=== PATIENT | female | born 1980 | race African-American/Black ===

== ENCOUNTER 2018-04-25 23:41 | Emergency (ER) | payer OTHER, SELFPAY ==
[2018-04-26 00:17] LABS: Absolute Lymphocytes (CBC) 3.7 K/uL (0.7-4.9); Absolute Monocytes 1.2 K/uL (0.1-1.3); Absolute Neutrophil 8.3 K/uL (1.8-8.0); Basophils % 0.9 % (0-1.3); Eosinophils % 2.5 % (0-4.4); Hematocrit 33.1 % (36.0-45.0); Lymphocytes % 27.2 % (15.3-44.8); MCH 22.4 pg (27.0-35.0); MCV 74.1 fL (80-100); MPV 8.5 fL (7.6-11.3); Monocytes % 8.8 % (3.3-12.3); RBC Red Blood Cell Count 4.46 M/uL (3.86-4.86)
[2018-04-26 00:34] LABS: ALT/SGPT 23 U/L (12-78); AST/SGOT 22 U/L (15-37); Albumin 3.4 g/dL (3.4-5.0); Alkaline Phosphatase 86 U/L (45-117); BUN Blood Urea Nitrogen 10 mg/dL (7-18); Bicarbonate 25 mmol/L (21-32); Bilirubin Direct < 0.1 mg/dL (0-0.2); Bilirubin Total 0.3 mg/dL (0.2-1.0); CKMB Creatine Kinase MB 1.4 ng/mL (0.3-3.6); Creatine Phosphokinase 165 U/L (26-192); Glucose Level 116 mg/dL (74-106); NT PRO-BNP 250 pg/mL (<125); Potassium 3.8 mmol/L (3.5-5.1); Protein, Total 7.5 g/dL (6.4-8.2); Sodium Level 141 mmol/L (136-145)
[2018-04-26] MEDS ORDERED: cloNIDine HCl 0.1 MG TAB ONE (00:38)
[2018-04-26 00:47] LABS: Urine Blood NEGATIVE (NEG); Urine Glucose NEGATIVE (NEG); Urine Protein NEGATIVE (NEG)
--- NOTE | 2018-04-26 01:53 | EDPHYS ---
Physician Documentation [facility] Name: Vickey Salamanca Age: 37 yrs Sex: Female : 1980 Arrival Date: 04/25/2018 Time: 23:42 Bed 5 Private MD: ED Physician Jez Marie HPI: 04/26 01:38 This 37 yrs old Black Female presents to ER via Ambulatory with complaints of High tw4 Blood Pressure, Shortness Of Breath. 01:38 The patient has elevated blood pressure and discovered this at home. Onset: The tw4 symptoms/episode began/occurred last week. Modifying factors: The symptoms are aggravated by pt noncompliant with medications. Associated signs and symptoms: The patient has no apparent associated signs or symptoms. The patient has not experienced similar symptoms in the past. 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 - Social history:: Smoking status: Patient uses tobacco products, denies chronic smoking, but will smoke occasionally. - Ebola Screening: : Patient negative for fever greater than or equal to 101.5 degrees Fahrenheit, and additional compatible Ebola Virus Disease symptoms Patient denies exposure to infectious person Patient denies travel to an Ebola-affected area in the 21 days before illness onset. ROS: 04/26 01:38 Constitutional: Negative for fever, chills, and weight loss, Cardiovascular: Negative tw4 for chest pain, palpitations, and edema, Abdomen/GI: Negative for abdominal pain, nausea, vomiting, diarrhea, and constipation. Respiratory: Positive for shortness of breath, Negative for cough, dyspnea on exertion, hemoptysis, orthopnea, pleurisy, sputum production, wheezing. Exam: 01:38 Constitutional: This is a well developed, well nourished patient who is awake, alert, tw4 and in no acute distress. Head/Face: Normocephalic, atraumatic. Chest/axilla: Normal chest wall appearance and motion. Nontender with no deformity. No lesions are appreciated. Cardiovascular: Regular rate and rhythm with a normal S1 and S2. No gallops, murmurs, or rubs. Normal PMI, no JVD. No pulse deficits. Respiratory: Lungs have equal breath sounds bilaterally, clear to auscultation and percussion. No rales, rhonchi or wheezes noted. No increased work of breathing, no retractions or nasal flaring. Abdomen/GI: Soft, non-tender, with normal bowel sounds. No distension or tympany. No guarding or rebound. No evidence of tenderness throughout. Back: No spinal tenderness. No costovertebral tenderness. Full range of motion. MS/ Extremity: Pulses equal, no cyanosis. Neurovascular intact. Full, normal range of motion. Neuro: Awake and alert, GCS 15, oriented to person, place, time, and situation. Cranial nerves II-XII grossly intact. Motor strength 5/5 in all extremities. Sensory grossly intact. Cerebellar exam normal. Normal gait. Vital Signs: 04/25 23:45 BP 198 / 125; Pulse 107; Resp 24; Temp 98.7(O); Pulse Ox 100% on R/A; Weight 97.52 kg fc (R); Height 5 ft. 7 in. (170.18 cm) (R); Pain 8/10; 04/26 00:21 BP 188 / 119; Pulse 90; Resp 20; Pulse Ox 100% on R/A; ak1 00:39 BP 170 / 111; Pulse 87; ak1 01:15 BP 168 / 110; ak1 01:33 BP 141 / 98; Pulse 88; Resp 17; Pulse Ox 98% on R/A; ea 02:03 BP 137 / 96; Pulse 85; Resp 16; Temp 98.7(O); Pulse Ox 98% on R/A; ak1 04/25 23:45 Body Mass Index 33.67 (97.52 kg, 170.18 cm) fc MDM: 04/25 23:51 Patient medically screened. 04/25 23:59 Order name: Basic Metabolic Panel; Complete Time: 01:41 4 04/26 01:41 Interpretation: Normal except: GLUC 116. 04/25 23:59 Order name: CBC with Diff; Complete Time: 01:41 04/26 01:41 Interpretation: Normal except: WBC 13.8; HGB 10.0; HCT 33.1; MCV 74.1; MCH 22.4; MCHC tw4 30.3; PLT 425; RDW 16.7; NEUT A 8.3. 04/25 23:59 Order name: Ckmb; Complete Time: 01:41 04/25 23:59 Order name: CPK; Complete Time: 01:41 04/25 23:59 Order name: LFT's; Complete Time: 01:41 04/26 01:41 Interpretation: Normal except: GLOB 4.1; A/G 0.8. 04/25 23:59 Order name: Magnesium; Complete Time: 01:41 04/25 23:59 Order name: NT PRO-BNP; Complete Time: 01:04/26 01:42 Interpretation: Abnormal: NT PRO-BNP 250. 04/25 23:59 Order name: PT-INR; Complete Time: 01:41 04/25 23:59 Order name: Ptt, Activated; Complete Time: 01:41 04/25 23:59 Order name: Troponin (emerg Dept Use Only); Complete Time: :41 04/25 23:59 Order name: XRAY Chest (1 view) 04/26 00:28 Order name: Urine Dipstick--Ancillary (enter results); Complete Time: :41 04/26 00:28 Order name: Urine --Ancillary (enter results); Complete Time: 01:41 04/25 23:59 Order name: EKG; Complete Time: 23:59 04/25 23:59 Order name: Cardiac monitoring; Complete Time: 00:02 04/25 23:59 Order name: EKG - Nurse/Tech; Complete Time: 00:00 04/25 23:59 Order name: IV Saline Lock; Complete Time: 00:00 04/25 23:59 Order name: Labs collected and sent; Complete Time: 00:01 04/25 23:59 Order name: O2 Per Protocol; Complete Time: 00:01 04/25 23:59 Order name: O2 Sat Monitoring; Complete Time: 00:01 04/25 23:59 Order name: Urine Dipstick-Ancillary (obtain specimen); Complete Time: 00:21 4 Administered Medications: 04/26 00:39 Drug: cloNIDine 0.2 mg Route: PO; ak1 01:23 Follow up: Response: No adverse reaction ak1 01:52 Drug: TORadol 30 mg Route: IVP; Site: right antecubital; ea 02:04 Follow up: Response: No adverse reaction ak1 Disposition: 04/26/18 01:52 Discharged to Home. Impression: Hypertensive urgency. - Condition is Stable. - Discharge Instructions: Hypertension, Xpgm-ag-Feat. - Prescriptions for Cozaar 50 mg Oral tablet - take 1 tablet by ORAL route once daily; 90 tablet. amlodipine 10 mg Oral tablet - take 1 tablet by ORAL route once daily; 90 tablet. - Medication Reconciliation Form, Thank You Letter, Antibiotic Education, Prescription Opioid Use form. - Follow up: Jez Marie MD; When: As needed; Reason: Recheck today's complaints, Re-evaluation by your physician. Follow up: Noah Galicia MD; When: As needed; Reason: Recheck today's complaints, Continuance of care, Re-evaluation by your physician. Follow up: Private Physician; When: As needed; Reason: Recheck today's complaints, Re-evaluation by your physician. - Problem is new. - Symptoms have improved. Signatures: Dispatcher [employer] EDMS Faiza Galeana RN Joi Mcneill RN RN ak1 Eva Jerez RN RN Jez Morrell MD MD tw4 Corrections: (The following items were deleted from the chart) 01:42 01:42 Normal except: NT PRO-BNP 250. tw4 4 02:06 01:52 04/26/2018 01:52 Discharged to Home. Impression: Hypertensive urgency. Condition tw4 is Stable. Forms are Medication Reconciliation Form, Thank You Letter, Antibiotic Education, Prescription Opioid Use. Follow up: Jez Marie; When: As needed; Reason: Recheck today's complaints, Re-evaluation by your physician. Follow up: Noah Galicia; When: As needed; Reason: Recheck today's complaints, Continuance of care, Re-evaluation by your physician. Problem is new. Symptoms have improved. 4 02:06 02:06 04/26/2018 01:52 Discharged to Home. Impression: Hypertensive urgency. Condition tw4 is Stable. Discharge Instructions: Hypertension, Chsp-ox-Bcrs. Prescriptions for Cozaar 50 mg Oral tablet - take 1 tablet by ORAL route once daily; 90 tablet, amlodipine 10 mg Oral tablet - take 1 tablet by ORAL route once daily; 90 tablet. and Forms are Medication Reconciliation Form, Thank You Letter, Antibiotic Education, Prescription Opioid Use. Follow up: Noah Galicia; When: As needed; Reason: Recheck today's complaints, Continuance of care, Re-evaluation by your physician. Problem is new. Symptoms have improved. tw4 02:15 02:06 04/26/2018 01:52 Discharged to Home. Impression: Hypertensive urgency. Condition ea is Stable. Discharge Instructions: Hypertension, Maya-wa-Bknf. Prescriptions for Cozaar 50 mg Oral tablet - take 1 tablet by ORAL route once daily; 90 tablet, amlodipine 10 mg Oral tablet - take 1 tablet by ORAL route once daily; 90 tablet. and Forms are Medication Reconciliation Form, Thank You Letter, Antibiotic Education, Prescription Opioid Use. Follow up: Noah Galicia; When: As needed; Reason: Recheck today's complaints, Continuance of care, Re-evaluation by your physician. Follow up: Private Physician; When: As needed; Reason: Recheck today's complaints, Re-evaluation by your physician. Problem is new. Symptoms have improved. tw4
--- NOTE | 2018-04-26 01:53 | ER ---
Nurse's Notes [facility] Name: Vickey Salamanca Age: 37 yrs Sex: Female : 1980 Arrival Date: 04/25/2018 Time: 23:42 Bed 5 Private MD: Diagnosis: Hypertensive urgency Presentation: 04/25 23:45 Presenting complaint: Patient states: that she has been having high bp and body aches x fc 2 days. Along with shortness of breath. Her right knee has been swollen x 2 months. Pt has not taken her bp medications of Amlodipine and Cozaar x 2 months due to no insurance. Has gained a significant amt of weight over past 2 months too. BP at home was 183/119. Transition of care: patient was not received from another setting of care. Onset of symptoms was May 16, 2018. Risk Assessment: Do you want to hurt yourself or someone else? Patient reports no desire to harm self or others. Initial Sepsis Screen: Does the patient meet any 2 criteria? HR > 90 bpm. Does the patient have a suspected source of infection? No. Patient's initial sepsis screen is negative. Care prior to arrival: None. 23:45 Method Of Arrival: Ambulatory fc 23:45 Acuity: KESHA 3 fc Triage Assessment: 23:55 General: Appears uncomfortable, Behavior is calm, cooperative, appropriate for age. fc Pain: Complains of pain in all over Pain currently is 8 out of 10 on a pain scale. Quality of pain is described as aching, Pain began 2-3 days ago. Is continuous, Aggravated by increased activity, repositioning, weight bearing. EENT: No deficits noted. Neuro: Level of Consciousness is awake, alert, obeys commands, Oriented to person, place, time, situation. Cardiovascular: Reports shortness of breath, Capillary refill < 3 seconds Patient's skin is warm and dry. Respiratory: Reports shortness of breath Airway is patent Trachea midline Respiratory effort is even, unlabored, Respiratory pattern is regular, symmetrical, Onset: The symptoms/episode began/occurred gradually, the patient has moderate shortness of breath. GI: No deficits noted. : No deficits noted. Derm: Skin is pink, warm \T\ dry. Musculoskeletal: Circulation, motion, and sensation intact. Capillary refill < 3 seconds, Range of motion: intact in all extremities. 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 - Social history:: Smoking status: Patient uses tobacco products, denies chronic smoking, but will smoke occasionally. - Ebola Screening: : Patient negative for fever greater than or equal to 101.5 degrees Fahrenheit, and additional compatible Ebola Virus Disease symptoms Patient denies exposure to infectious person Patient denies travel to an Ebola-affected area in the 21 days before illness onset. Screenin:55 Abuse screen: Denies threats or abuse. Nutritional screening: No deficits noted. fc Tuberculosis screening: No symptoms or risk factors identified. Fall Risk None identified. Assessment: 04/26 00:19 General: Appears in no apparent distress. Behavior is calm, cooperative. Pain:. ak1 00:20 Pain: Complains of pain in all over body aches, knee pain. Neuro: Level of ak1 Consciousness is awake, alert, obeys commands, Oriented to person, place, time, situation, Personalized Living Manager Nurse are equal bilaterally Moves all extremities. Gait is steady, Speech is normal, Facial symmetry appears normal. Cardiovascular: Rhythm is sinus rhythm. Respiratory: Reports shortness of breath Airway is patent Breath sounds are clear bilaterally. GI: No signs and/or symptoms were reported involving the gastrointestinal system. : No signs and/or symptoms were reported regarding the genitourinary system. EENT: No signs and/or symptoms were reported regarding the EENT system. Derm: No signs and/or symptoms reported regarding the dermatologic system. Musculoskeletal: Reports body aches. 01:46 Reassessment: Patient and/or family updated on plan of care and expected duration. Pain ea level reassessed. Patient is alert, oriented x 3, equal unlabored respirations, skin warm/dry/pink. 02:13 Reassessment: Patient and/or family updated on plan of care and expected duration. Pain ea level reassessed. Patient is alert, oriented x 3, equal unlabored respirations, skin warm/dry/pink. Discharge instruction given to patient, verbalized the understanding of instruction. Vital Signs: 04/25 23:45 BP 198 / 125; Pulse 107; Resp 24; Temp 98.7(O); Pulse Ox 100% on R/A; Weight 97.52 kg fc (R); Height 5 ft. 7 in. (170.18 cm) (R); Pain 8/10; 07 00:21 BP 188 / 119; Pulse 90; Resp 20; Pulse Ox 100% on R/A; ak1 00:39 BP 170 / 111; Pulse 87; ak1 01:15 BP 168 / 110; ak1 01:33 BP 141 / 98; Pulse 88; Resp 17; Pulse Ox 98% on R/A; ea 02:03 BP 137 / 96; Pulse 85; Resp 16; Temp 98.7(O); Pulse Ox 98% on R/A; ak1 04/25 23:45 Body Mass Index 33.67 (97.52 kg, 170.18 cm) fc ED Course: 04/25 23:42 Patient arrived in ED. ds1 23:45 Arm band placed on Patient placed in an exam room, on a stretcher. fc 23:51 Jez Marie MD is Attending Physician. tw4 23:53 Triage completed. fc 23:55 Patient has correct armband on for positive identification. Placed in gown. Bed in low fc position. Call light in reach. laboratory monitor on. Pulse ox on. NIBP on. 23:55 No provider procedures requiring assistance completed. fc 23:55 Inserted saline lock: 20 gauge in right antecubital area, using aseptic technique. ak1 Blood collected. 04/26 00:01 Eva Jerez, RN is Primary Nurse. ea 01:17 X-ray completed. Portable x-ray completed in exam room. Patient tolerated procedure bb2 well. 01:18 XRAY Chest (1 view) In Process Unspecified. EDMS 01:51 Jez Marie MD is Referral Physician. tw4 01:51 Noah Galicia MD is Referral Physician. tw4 02:06 Referral Physician role handed off by Jez Marie MD tw4 02:14 IV discontinued, intact, bleeding controlled, No redness/swelling at site. Pressure ea dressing applied. Administered Medications: 00:39 Drug: cloNIDine 0.2 mg Route: PO; ak1 01:23 Follow up: Response: No adverse reaction ak1 01:52 Drug: TORadol 30 mg Route: IVP; Site: right antecubital; ea 02:04 Follow up: Response: No adverse reaction ak1 Outcome: 01:52 Discharge ordered by . tw4 02:14 Condition: improved ea 02:14 Discharge instructions given to patient, Instructed on discharge instructions, follow up and referral plans. medication usage, Demonstrated understanding of instructions, follow-up care, medications, Prescriptions given X 2. 02:15 Patient left the ED. ea Signatures: Dispatcher [employer] EDMS Faiza Galeana RN RN Rhona Song ds1 Joi Stacy RN RN ak1 Eva Jerez RN RN Brigid Olea bb2 Jez Marie MD MD tw4 Corrections: (The following items were deleted from the chart) 04/25 23:55 23:45 Presenting complaint: Patient states: that she has been having high bp and body fc aches x 2 days. Along with shortness of breath. Her right knee has been swollen x 2 months. Pt has not taken her bp medications of Amlodipine and Cozaar x 2 months due to no insurance. Has gained a significant amt of weight over past 2 months too. fc
[2018-04-26] MEDS ORDERED: KETOROLAC 30 MG/ML INJ ONE (01:54)
--- NOTE | 2018-04-26 07:21 | RAD REPORT ---
EXAM DESCRIPTION: RAD - Chest Single View - 04/26/2018 1:18 am CLINICAL HISTORY: Shortness of breath, hypertension COMPARISON: December 2016 TECHNIQUE: AP portable chest image was obtained 0106 hours . FINDINGS: Lungs are clear. Heart and vasculature are normal. No measurable pleural effusion and no p neumothorax. No gross bony abnormality seen. No acute aortic findings suspected. IMPRESSION: No acute cardiopulmonary process. No significant change from comparison.
--- NOTE | 2018-04-26 09:23 | EKG ---
Test Date: 2018-04-25 Test Time: 23:54:51 Buying Agent: SID MEASUREMENT RESULTS: Intervals: Rate: 92 DC: 142 QRSD: 76 QT: 382 QTc: 472 [place]: P: 25 DC: 142 QRS: 14 T: 34 INTERPRETIVE STATEMENTS: Normal sinus rhythm Voltage criteria for left ventricular hypertrophy Nonspecific ST abnormality Abnormal ECG Compared to ECG 11/22/2017 22:19:28 ST (T wave) deviation now present Electronically Signed On 04-26-18 09:22:37 CDT by Sameer Romero
== END 2018-04-26 02:15 | disposition home or self-care (01) ==
LOC: ER 23:41
DX: I16.0 Hypertensive urgency (principal); Z72.0 Tobacco use
CPT/HCPCS: 36415; 71045; 80048; 80076; 81003; 81025; 82550; 82553; 83735; 83880; 84484; 85025; 85610; 85730; 93005; 96374; 99284

== ENCOUNTER 2018-06-13 13:57 | Emergency (ER) | payer SELFPAY ==
--- NOTE | 2018-06-13 15:20 | RAD REPORT ---
EXAM DESCRIPTION: VAS - Extremity Venous Uni Ltd - 06/13/2018 3:13 pm CLINICAL HISTORY: Right leg pain and swelling COMPARISON: None. TECHNIQUE: Real-time sonographic evaluation of the right lower extremity deep venous systems was per formed. FINDINGS: Normal compressibility, flow augmentation, phasic flow and spontaneous flow are identified in the right lower extremity common femoral, superficial femoral, popliteal and posterior tibial vei ns. No intraluminal filling defects seen. Ill-defined fluid is seen in the soft tissues around the knee. This appears to be an extra-articular collection. This could be old hematoma or reactive fluid from a soft tissue injury. This is more broa dly distributed than what is typically seen for ruptured popliteal fossa cyst. IMPRESSION: No DVT in the right lower extremity. Ill-defined fluid in the soft tissues around the knee. This is extra-articular. This could be old hem atoma or reactive fluid from soft tissue injury.
--- NOTE | 2018-06-13 15:41 | RAD REPORT ---
EXAM DESCRIPTION: RAD - Knee Right 3 View - 06/13/2018 2:52 pm CLINICAL HISTORY: Knee pain and swelling COMPARISON: None. FINDINGS: No fracture, dislocation or periosteal reaction.No joint effusion seen. Hypertrophy at the tibial tubercle could be normal variant or sequela of prior trauma. Active process at this site is d oubtful. No joint space narrowing. No foreign body or other soft tissue abnormality. IMPRESSION: No acute bone or joint finding. Old trauma or normal variant change at the tibial tuberc le. Clinical concerns for internal derangement or occult bony injury could be further assessed with MR im aging.
--- NOTE | 2018-06-13 15:57 | EDPHYS ---
Physician Documentation [facility] Name: Vickey Salamanca Age: 37 yrs Sex: Female : 1980 Arrival Date: 06/13/2018 Time: 14:00 Bed 23 Private MD: None, None ED Physician Will Garcia HPI: 06/13 14:17 This 37 yrs old Black Female presents to ER via Ambulatory with complaints of Knee rn Swelling. 14:17 The patient presents with pain, swelling. The complaints affect the right knee. Onset: rn The symptoms/episode began/occurred 3 month(s) ago. Severity of symptoms: At their worst the symptoms were mild, in the emergency department the symptoms are unchanged. The patient has experienced similar episodes in the past. Reports right knee pain and swelling for 3 months, constant, no trauma, no fever/warmth/redness, able to walk on it, has not had it checked. . 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 - Social history:: Smoking status: Patient/guardian denies using tobacco. - Ebola Screening: : No symptoms or risks identified at this time. - Family history:: not pertinent. - Hospitalizations: : No recent hospitalization is reported. ROS: 14:17 Constitutional: Negative for fever, chills, and weight loss, MS/Extremity: Negative for rn injury and deformity. Exam: 14:17 Constitutional: This is a well developed, well nourished patient who is awake, alert, rn and in no acute distress. Ambulated without assistance to room. Skin: Warm, dry with normal turgor. Normal color with no rashes, no lesions, and no evidence of cellulitis. MS/ Extremity: Pulses equal, no cyanosis. Neurovascular intact. Full, normal range of motion. + mild swelling around right knee, no warmth/erythema, mild tenderness posterior to right knee, no masses Neuro: Awake and alert, Motor strength 5/5 in all extremities. Sensory grossly intact. Normal gait. Vital Signs: 14:13 BP 151 / 95; Pulse 89; Resp 18; Temp 98.4; Pulse Ox 99% on R/A; Weight 95.25 kg; Height ph 5 ft. 7 in. (170.18 cm); Pain 8/10; 14:13 Body Mass Index 32.89 (95.25 kg, 170.18 cm) ph MDM: 14:07 Patient medically screened. rn 15:54 Differential diagnosis: contusion, tendonitis. Data reviewed: vital signs, nurses rn notes, radiologic studies, doppler, plain films, and as a result, I will discharge patient. Counseling: I had a detailed discussion with the patient and/or guardian regarding: the historical points, exam findings, and any diagnostic results supporting the discharge/admit diagnosis, radiology results, the need for outpatient follow up, to return to the emergency department if symptoms worsen or persist or if there are any questions or concerns that arise at home. 15:55 Response to treatment: There is no appreciated change of the patient's symptoms at this rn time. Special discussion: I discussed with the patient/guardian in detail that at this point there is no indication for admission to the hospital. It is understood, however, that if the symptoms persist or worsen the patient needs to return immediately for re-evaluation. Based on the history and exam findings, there is no indication for further emergent testing or inpatient evaluation. I discussed with the patient/guardian the need to see the orthopedic surgeon for further evaluation of the symptoms. ED course: Xray shows soft tissue swelling, extraarticular, doppler negative, will dc home with compression/rest/elevation, advise outpt MRI and return precautions. . 06/13 14:15 Order name: XRAY Knee RIGHT 3 view; Complete Time: 15:46 rn 06/13 14:15 Order name: Extremity Venous Uni Ltd US; Complete Time: 15:46 rn Administered Medications: No medications were administered Disposition: 06/13/18 15:57 Discharged to Home. Impression: Pain in right knee. - Condition is Stable. - Discharge Instructions: Joint Pain, Musculoskeletal Pain, Knee Pain. - Medication Reconciliation Form, Thank You Letter, Antibiotic Education, Prescription Opioid Use form. - Follow up: Private Physician; When: As needed; Reason: Recheck today's complaints, Re-evaluation by your physician. - Problem is new. - Symptoms have improved. Signatures: Dispatcher [employer] EDMS Will Garcia MD MD rn Smirch, Shelby, RN RN ss Kamilla Iyer RN RN ph Corrections: (The following items were deleted from the chart) 16:05 15:57 06/13/2018 15:57 Discharged to Home. Impression: Pain in right knee. Condition is ss Stable. Forms are Medication Reconciliation Form, Thank You Letter, Antibiotic Education, Prescription Opioid Use. Follow up: Private Physician; When: As needed; Reason: Recheck today's complaints, Re-evaluation by your physician. Problem is new. Symptoms have improved. rn
--- NOTE | 2018-06-13 15:57 | ER ---
Nurse's Notes [facility] Name: Vickey Salamanca Age: 37 yrs Sex: Female : 1980 Arrival Date: 06/13/2018 Time: 14:00 Bed 23 Private MD: None, None Diagnosis: Pain in right knee Presentation: 06/13 14:11 Presenting complaint: Patient states: " My knee has been swelling for about a month but ph it normally doesn't hurt. The past 2 or 3 days it has really been hurting and the pain moves up into my thigh." Swelling noted to R knee, pt denies injury, ambulatory into triage. Transition of care: patient was not received from another setting of care. Onset of symptoms was June 13, 2018. Risk Assessment: Do you want to hurt yourself or someone else? Patient reports no desire to harm self or others. Initial Sepsis Screen: Does the patient meet any 2 criteria? No. Patient's initial sepsis screen is negative. Does the patient have a suspected source of infection? No. Patient's initial sepsis screen is negative. Care prior to arrival: None. 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 - Social history:: Smoking status: Patient/guardian denies using tobacco. - Ebola Screening: : No symptoms or risks identified at this time. - Family history:: not pertinent. - Hospitalizations: : No recent hospitalization is reported. Vital Signs: 14:13 BP 151 / 95; Pulse 89; Resp 18; Temp 98.4; Pulse Ox 99% on R/A; Weight 95.25 kg; Height ph 5 ft. 7 in. (170.18 cm); Pain 8/10; 14:13 Body Mass Index 32.89 (95.25 kg, 170.18 cm) ph ED Course: 14:00 Patient arrived in ED. mr 14:01 None, None is Private Physician. mr 14:07 Will Garcia MD is Attending Physician. rn 14:13 Triage completed. ph 14:17 Arm band placed on. ph 14:48 X-ray completed. Portable x-ray completed in exam room. Patient tolerated procedure bb2 well. 14:50 XRAY Knee RIGHT 3 view In Process Unspecified. EDMS 15:02 Extremity Venous Uni Ltd US In Process Unspecified. EDMS 15:03 Ultrasound completed. Patient tolerated well. lc3 16:03 No provider procedures requiring assistance completed. Patient did not have IV access ss during this emergency room visit. 16:05 Madiha Flores, RN is Primary Nurse. ss Administered Medications: No medications were administered Outcome: 15:57 Discharge ordered by MD. rn 16:03 Discharged to home ambulatory, with family. ss 16:03 Condition: good 16:03 Discharge instructions given to patient, family, Instructed on discharge instructions, follow up and referral plans. medication usage, Demonstrated understanding of instructions, follow-up care, medications. 16:05 Patient left the ED. ss Signatures: Dispatcher [employer] EDPA Sanaz Renee mr Will Garcia MD MD rn Smirch, Shelby, RN RN ss Hall, Patricia, RN RN Radha Muller Brittany bb2
== END 2018-06-13 16:05 | disposition home or self-care (01) ==
LOC: ER 13:57
DX: M25.561 Pain in right knee (principal); I10 Essential (primary) hypertension
CPT/HCPCS: 93971; 99283

== ENCOUNTER 2019-03-21 17:36 | Emergency (ER) | payer SELFPAY ==
[2019-03-21 18:41] LABS: Absolute Lymphocytes (CBC) 3.9 K/uL (0.7-4.9); Absolute Monocytes 1.2 K/uL (0.1-1.3); Absolute Neutrophil 7.6 K/uL (1.8-8.0); Basophils % 0.9 % (0-1.3); Eosinophils % 1.7 % (0-4.4); Hematocrit 36.8 % (36.0-45.0); Lymphocytes % 29.7 % (15.3-44.8); MPV 8.4 fL (7.6-11.3); Monocytes % 9.4 % (3.3-12.3); Protime INR 1.04; RBC Red Blood Cell Count 4.62 M/uL (3.86-4.86)
[2019-03-21 19:00] LABS: ALT/SGPT 30 U/L (12-78); AST/SGOT 15 U/L (15-37); Albumin 3.7 g/dL (3.4-5.0); Alkaline Phosphatase 96 U/L (45-117); BUN Blood Urea Nitrogen 15 mg/dL (7-18); Bicarbonate 26 mmol/L (21-32); Bilirubin Direct < 0.1 mg/dL (0-0.2); Bilirubin Total 0.2 mg/dL (0.2-1.0); Glucose Level 93 mg/dL (74-106); Magnesium 2.1 mg/dL (1.8-2.4); NT PRO-BNP 18 pg/mL (<125); Potassium 3.7 mmol/L (3.5-5.1); Protein, Total 8.1 g/dL (6.4-8.2); Sodium Level 143 mmol/L (136-145); Troponin (Emerg Dept Use Only) < 0.02 ng/mL (0.0-0.045)
[2019-03-21 19:16] LABS: Urine Blood TRACE (NEG); Urine Glucose NEGATIVE (NEG); Urine Protein NEGATIVE (NEG); Urine Specific Gravity 1.015 (1.005-1.030)
--- NOTE | 2019-03-21 20:10 | ER ---
Nurse's Notes [facility] Name: Vickey Salamanca Age: 38 yrs Sex: Female : 1980 Arrival Date: 03/21/2019 Time: 17:40 Bed 24 Private MD: Diagnosis: Palpitations Presentation: 03/21 17:44 Presenting complaint: Patient states: "My heart has been racing for about 5 days". Pt aa5 also c/o chest pressure radiating to left arm. Transition of care: patient was not received from another setting of care. Onset of symptoms was February 2019. Risk Assessment: Do you want to hurt yourself or someone else? Patient reports no desire to harm self or others. Initial Sepsis Screen: Does the patient meet any 2 criteria? No. Patient's initial sepsis screen is negative. Does the patient have a suspected source of infection? No. Patient's initial sepsis screen is negative. Care prior to arrival: None. 17:44 Method Of Arrival: Ambulatory aa5 17:44 Acuity: KESHA 2 aa5 Triage Assessment: 17:55 General: Appears in no apparent distress. comfortable, Behavior is calm, cooperative. ls4 17:55 Pain: Complains of pain in left clavicle Pain currently is 4 out of 10 on a pain scale. ls4 Neuro: Level of Consciousness is awake, alert, obeys commands, Cardiovascular: Reports chest pain, lightheadedness, palpitations, Capillary refill < 3 seconds Patient's skin is warm and dry. Respiratory: Airway is patent Respiratory effort is even, unlabored, Respiratory pattern is regular. Derm: Skin is pink, warm \\T\\ dry. 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 - Social history:: Smoking status: Patient/guardian denies using tobacco. - Ebola Screening: : No symptoms or risks identified at this time. Screenin:53 Abuse screen: Denies threats or abuse. Denies injuries from another. Nutritional ls4 screening: No deficits noted. Tuberculosis screening: No symptoms or risk factors identified. Fall Risk No fall in past 12 months (0 pts). No secondary diagnosis (0 pts). IV access (20 points). Ambulatory Aid- None/Bed Rest/Nurse Assist (0 pts). Gait- Normal/Bed Rest/Wheelchair (0 pts) Mental Status- Oriented to own ability (0 pts). Assessment: 18:10 General: Appears uncomfortable, Behavior is cooperative. ls4 18:10 Neuro: Level of Consciousness is awake, alert, obeys commands, Oriented to person, ls4 place, time, situation. Cardiovascular: Reports chest pain, palpitations, shortness of breath. Respiratory: Reports air hunger since 5 days. Derm: Skin is pink, warm \\T\\ dry. 19:08 Reassessment: Patient appears in no apparent distress at this time. Patient and/or ls4 family updated on plan of care and expected duration. Pain level reassessed. Patient is alert, oriented x 3, equal unlabored respirations, skin warm/dry/pink. 20:40 Reassessment: Patient appears in no apparent distress at this time. Patient and/or ls4 family updated on plan of care and expected duration. Pain level reassessed. Patient is alert, oriented x 3, equal unlabored respirations, skin warm/dry/pink. 20:43 Reassessment: discharge pending fluids. ls4 Vital Signs: 17:47 BP 140 / 90; Pulse 108; Resp 18 S; Temp 99.2(TE); Pulse Ox 97% on R/A; Weight 97.07 kg aa5 (R); Height 5 ft. 7 in. (170.18 cm) (R); Pain 4/10; 18:45 BP 129 / 83; Pulse 93; Pulse Ox 99% on R/A; Pain 4/10; ls4 19:07 BP 127 / 89; Pulse 91; Resp 17; Pulse Ox 100% on R/A; ls4 20:10 BP 133 / 97; Pulse 93; Resp 14; Pulse Ox 99% on R/A; Pain 0/10; ls4 17:47 Body Mass Index 33.52 (97.07 kg, 170.18 cm) aa5 ED Course: 17:40 Patient arrived in ED. mr 17:44 Arm band placed on. aa5 17:45 Triage completed. aa5 17:50 Samia Wild, RN is Primary Nurse. ls4 17:51 EKG done, by nuclear plant technical advisor. reviewed by Royce Dee MD. sm3 17:52 Eduard Mae NP is PHCP. pm1 17:53 Royce Dee MD is Attending Physician. pm1 17:53 Patient has correct armband on for positive identification. Bed in low position. Call ls4 light in reach. Side rails up X 1. compliance monitor on. Pulse ox on. NIBP on. Warm blanket given. Verbal reassurance given. 18:05 Urine collected: clean catch specimen, clear, lara colored. jp3 18:10 Initial lab(s) drawn, by me, sent to lab. Inserted saline lock: 20 gauge in right ls4 antecubital area, using aseptic technique. Blood collected. 18:17 XRAY Chest (1 view) In Process Unspecified. EDMS 18:40 No provider procedures requiring assistance completed. ls4 21:55 IV discontinued, intact, bleeding controlled, No redness/swelling at site. Pressure ls4 dressing applied. Administered Medications: 20:11 Drug: NS 0.9% 1000 ml Route: IV; Rate: 1000 ml; Site: right antecubital; ls4 Outcome: 20:09 Discharge ordered by . pm1 21:38 Patient left the ED. ls4 21:38 Discharged to home ambulatory. ls4 21:38 Condition: stable 21:38 Discharge instructions given to patient, Instructed on discharge instructions, follow up and referral plans. medication usage, safety practices, Demonstrated understanding of instructions, follow-up care, medications. Signatures: Dispatcher [employer] EDWV Víctor Sonya CintronYady, RN RN aa5 Eduard Mae, ANGELIKA LONE LEAD LINEMAN pm1 Luli Perez 3 Guy Cox jp3 Samia Wild, DEEPA RN ls4 Corrections: (The following items were deleted from the chart) 17:49 17:47 Pulse 108bpm; Resp 18bpm; Spontaneous; Pulse Ox 97% RA; Temp 99.2F Temporal; aa5 97.07 kg Reported; Height 5 ft. 7 in. Reported; BMI: 33.5; Pain 4/10; aa5
--- NOTE | 2019-03-21 20:10 | EDPHYS ---
Physician Documentation [facility] Name: Vickey Salamanca Age: 38 yrs Sex: Female : 1980 Arrival Date: 03/21/2019 Time: 17:40 Bed 24 Private MD: ED Physician Royce Dee HPI: 03/21 18:06 This 38 yrs old Black Female presents to ER via Ambulatory with complaints of pm1 Palpitations. 18:06 The patient presents with a history of heart racing. Context: The symptoms occur at pm1 rest. Onset: The symptoms/episode began/occurred 5 day(s) ago, after taking HCTZ. Duration: The patient or guardian reports multiple episodes. Modifying factors: The symptoms are aggravated by new blood pressure medications The symptoms are alleviated by nothing. Associated signs and symptoms: Pertinent negatives: chest pain, cough, fever, SOB. Severity of symptoms: in the emergency department the symptoms have improved Pain is currently a 0 / 10. The patient has experienced a previous episode, many years ago, and the symptoms today are exactly the same, with taking HCTZ. The patient has been recently seen by a physician: blood pressure management 1 week ago. 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 - Social history:: Smoking status: Patient/guardian denies using tobacco. - Ebola Screening: : No symptoms or risks identified at this time. ROS: 18:06 Constitutional: Negative for fever, chills, and weight loss, Eyes: Negative for injury, pm1 pain, redness, and discharge, ENT: Negative for injury, pain, and discharge, Neck: Negative for injury, pain, and swelling. 18:06 Respiratory: Negative for shortness of breath, cough, wheezing, and pleuritic chest pain, Abdomen/GI: Negative for abdominal pain, nausea, vomiting, diarrhea, and constipation, Back: Negative for injury and pain, : Negative for injury, bleeding, discharge, and swelling, MS/Extremity: Negative for injury and deformity, Skin: Negative for injury, rash, and discoloration, Neuro: Negative for headache, weakness, numbness, tingling, and seizure. 18:06 Cardiovascular: Positive for palpitations, Negative for chest pain, edema, orthopnea. Exam: 18:06 Constitutional: This is a well developed, well nourished patient who is awake, alert, pm1 and in no acute distress. Head/Face: Normocephalic, atraumatic. Eyes: Pupils equal round and reactive to light, extra-ocular motions intact. Lids and lashes normal. Conjunctiva and sclera are non-icteric and not injected. Cornea within normal limits. Periorbital areas with no swelling, redness, or edema. ENT: Nares patent. No nasal discharge, no septal abnormalities noted. Tympanic membranes are normal and external auditory canals are clear. Oropharynx with no redness, swelling, or masses, exudates, or evidence of obstruction, uvula midline. Mucous membranes moist. Neck: Trachea midline, no thyromegaly or masses palpated, and no cervical lymphadenopathy. Supple, full range of motion without nuchal rigidity, or vertebral point tenderness. No Meningismus. Chest/axilla: Normal chest wall appearance and motion. Nontender with no deformity. No lesions are appreciated. Respiratory: Lungs have equal breath sounds bilaterally, clear to auscultation and percussion. No rales, rhonchi or wheezes noted. No increased work of breathing, no retractions or nasal flaring. Abdomen/GI: Soft, non-tender, with normal bowel sounds. No distension or tympany. No guarding or rebound. No evidence of tenderness throughout. Back: No spinal tenderness. No costovertebral tenderness. Full range of motion. 18:06 Cardiovascular: Rate: tachycardic, actual rate is 112 bpm, Rhythm: regular, Pulses: no pulse deficits are appreciated. Vital Signs: 17:47 BP 140 / 90; Pulse 108; Resp 18 S; Temp 99.2(TE); Pulse Ox 97% on R/A; Weight 97.07 kg aa5 (R); Height 5 ft. 7 in. (170.18 cm) (R); Pain 4/10; 18:45 BP 129 / 83; Pulse 93; Pulse Ox 99% on R/A; Pain 4/10; ls4 19:07 BP 127 / 89; Pulse 91; Resp 17; Pulse Ox 100% on R/A; ls4 20:10 BP 133 / 97; Pulse 93; Resp 14; Pulse Ox 99% on R/A; Pain 0/10; ls4 17:47 Body Mass Index 33.52 (97.07 kg, 170.18 cm) aa5 MDM: 17:54 Patient medically screened. pm1 17:55 Data reviewed: vital signs. Data interpreted: Pulse oximetry: on room air is 97 %. pm1 Interpretation: normal. 20:05 Counseling: I had a detailed discussion with the patient and/or guardian regarding: the pm1 historical points, exam findings, and any diagnostic results supporting the discharge/admit diagnosis, lab results, radiology results, the need for outpatient follow up, to return to the emergency department if symptoms worsen or persist or if there are any questions or concerns that arise at home. 03/21 17:59 Order name: Basic Metabolic Panel; Complete Time: 20:01 pm03/21 17:59 Order name: CBC with Diff; Complete Time: 18:54 pm03/21 17:59 Order name: LFT's; Complete Time: 20:01 pm03/21 17:59 Order name: Magnesium; Complete Time: 20:01 pm03/21 17:59 Order name: NT PRO-BNP; Complete Time: 20:01 pm03/21 17:59 Order name: PT-INR; Complete Time: 18:54 pm03/21 17:59 Order name: Troponin (emerg Dept Use Only); Complete Time: 20:01 pm03/21 17:59 Order name: XRAY Chest (1 view) pm03/21 17:59 Order name: EKG; Complete Time: 18:01 pm03/21 17:59 Order name: Cardiac monitoring; Complete Time: 18:34 pm03/21 17:59 Order name: EKG - Nurse/Tech; Complete Time: 18:18 pm03/21 18:23 Order name: Urine Dipstick--Ancillary (enter results) 03/21 18:23 Order name: Urine --Ancillary (enter results) 03/21 17:59 Order name: IV Saline Lock; Complete Time: 18:34 pm1 03/21 17:59 Order name: Labs collected and sent; Complete Time: 18:34 pm1 03/21 17:59 Order name: O2 Per Protocol; Complete Time: 18:18 pm1 03/21 17:59 Order name: O2 Sat Monitoring; Complete Time: 18:18 pm1 03/21 17:59 Order name: Urine Test (obtain specimen); Complete Time: 18:18 pm1 03/21 17:59 Order name: Urine Dipstick-Ancillary (obtain specimen); Complete Time: 18:18 pm1 EC:06 Rate is 112 beats/min. Rhythm is regular, Sinus tachycardia with No ectopy. No Q waves. pm1 T waves are Normal. No ST changes noted. Clinical impression: Sinus tachycardia. Administered Medications: 20:11 Drug: NS 0.9% 1000 ml Route: IV; Rate: 1000 ml; Site: right antecubital; ls4 Disposition: 03/22 07:07 Co-signature as Attending Physician, Royce Dee MD I agree with the assessment and sut plan of care. Disposition: 03/21/19 20:09 Discharged to Home. Impression: Palpitations. - Condition is Stable. - Discharge Instructions: Palpitations. - Medication Reconciliation Form, Thank You Letter, Antibiotic Education, Prescription Opioid Use form. - Follow up: Emergency Department; When: As needed; Reason: Worsening of condition. Follow up: Private Physician; When: 2 - 3 days; Reason: Recheck today's complaints, Continuance of care, Re-evaluation by your physician. - Problem is new. - Symptoms have improved. Signatures: Dispatcher [employer] [facility] Royce Dee MD MD cha Calderon, Audri, RN RN aa5 Eduard Mae NP PESTICIDE APPLICATOR pm1 Samia Wild, RN RN ls4 Corrections: (The following items were deleted from the chart) 03/21 21:38 20:09 03/21/2019 20:09 Discharged to Home. Impression: Palpitations. Condition is ls4 Stable. Forms are Medication Reconciliation Form, Thank You Letter, Antibiotic Education, Prescription Opioid Use. Follow up: Emergency Department; When: As needed; Reason: Worsening of condition. Follow up: Private Physician; When: 2 - 3 days; Reason: Recheck today's complaints, Continuance of care, Re-evaluation by your physician. Problem is new. Symptoms have improved. pm1
[2019-03-21] MEDS ORDERED: NA CHLORIDE 0.9% 1,000 ML ONE (20:27)
--- NOTE | 2019-03-22 14:32 | EKG ---
Test Date: 2019-03-21 Test Time: 17:48:01 Material Combiner: MELI MEASUREMENT RESULTS: Intervals: Rate: 112 CT: 144 QRSD: 74 QT: 344 QTc: 469 [place]: P: 44 CT: 144 QRS: 15 T: 50 INTERPRETIVE STATEMENTS: Sinus tachycardia Possible Left atrial enlargement Left ventricular hypertrophy Abnormal ECG Compared to ECG 04/25/2018 23:54:51 Sinus rhythm no longer present ST (T wave) deviation no longer present Electronically Signed On 03-22-19 14:29:10 CDT by Sameer Romero
--- NOTE | 2019-03-22 15:26 | RAD REPORT ---
EXAM DESCRIPTION: Danay Single View03/22/2019 11:39 am CLINICAL HISTORY: Chest pain COMPARISON: April 2018 FINDINGS: The lungs appear clear of acute infiltrate. The heart is mildly enlarged IMPRESSION: No acute abnormalities displayed
== END 2019-03-21 21:38 | disposition home or self-care (01) ==
LOC: ER 17:36
DX: R00.2 Palpitations (principal); I10 Essential (primary) hypertension
CPT/HCPCS: 36415; 71045; 80048; 80076; 81003; 81025; 83735; 83880; 84484; 85025; 85610; 93005; 99284; J7030

== ENCOUNTER 2019-05-03 18:06 | Emergency (ER) | payer SELFPAY ==
[2019-05-03] MEDS ORDERED: KETOROLAC 30 MG/ML INJ ONE (19:20)
--- NOTE | 2019-05-03 19:46 | RAD REPORT ---
EXAM DESCRIPTION: US - Extremity Venous Uni Ltd - 05/03/2019 7:38 pm CLINICAL HISTORY: Pain;Swelling Leg swelling and edema. COMPARISON: <Comparisons> FINDINGS: Right lower extremity venous system was interrogated with Doppler technique. Normal flow, compressibility and augmentation was noted. There is no DVT present. IMPRESSION: No evidence of right lower extremity deep venous thrombosis.
--- NOTE | 2019-05-03 20:17 | ER ---
Nurse's Notes [facility] Name: Vickey Salamanca Age: 38 yrs Sex: Female : 1980 Arrival Date: 05/03/2019 Time: 18:08 Bed 19 Private MD: Diagnosis: Pain in right leg Presentation: 05/03 18:27 Presenting complaint: Patient states: Hx of arthritis in R knee, woke up this morning ph at 0200 w/ cramping pain to L inner thigh, pain subsided and then returned at around 0500, pt also c/o pain to back of knee and calf area, swelling noted to knee and ankle. Transition of care: patient was not received from another setting of care. Onset of symptoms was May 03, 2019. Risk Assessment: Do you want to hurt yourself or someone else? Patient reports no desire to harm self or others. Care prior to arrival: None. 18:27 Method Of Arrival: Ambulatory ph 18:27 Acuity: KESHA 3 ph 19:19 Initial Sepsis Screen: Does the patient meet any 2 criteria? No. Patient's initial ae4 sepsis screen is negative. Does the patient have a suspected source of infection? No. Patient's initial sepsis screen is negative. Triage Assessment: 19:16 General: Appears in no apparent distress. comfortable, Behavior is calm, cooperative. ae4 Pain: Complains of pain in right hamstring, posterior aspect of right knee, right calf, right Achilles, medial aspect of right thigh, medial aspect of right knee and medial aspect of right calf. EENT: No signs and/or symptoms were reported regarding the EENT system. Neuro: Level of Consciousness is awake, alert, obeys commands, Oriented to person, place, time, situation, Appropriate for age. Cardiovascular: Patient's skin is warm and dry. Respiratory: Airway is patent Respiratory effort is even, unlabored, Respiratory pattern is regular, symmetrical. GI: No signs and/or symptoms were reported involving the gastrointestinal system. Abdomen is round obese. : No signs and/or symptoms were reported regarding the genitourinary system. Derm: No visible swelling or redness to painful area, posterior right leg. Musculoskeletal: Range of motion: intact in all extremities. 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 ae4 Historical: - Allergies: 18:30 No Known Allergies; ph - Home Meds: 18:30 amlodipine 10 mg tab 1 tab once daily [Active]; losartan 100 mg Oral tab 1 tab once ph daily [Active]; - PMHx: 18:30 Hypertension; ph - PSHx: 18:30 Tubal ligation; ph - Immunization history:: Adult Immunizations unknown. - Social history:: Smoking status: Patient/guardian denies using tobacco. - Ebola Screening: : No symptoms or risks identified at this time. Screenin:13 Abuse screen: Denies threats or abuse. Nutritional screening: No deficits noted. ae4 Tuberculosis screening: No symptoms or risk factors identified. Fall Risk None identified. No fall in past 12 months (0 pts). No secondary diagnosis (0 pts). No IV (0 pts). Ambulatory Aid- None/Bed Rest/Nurse Assist (0 pts). Gait- Normal/Bed Rest/Wheelchair (0 pts) Mental Status- Oriented to own ability (0 pts). Assessment: 19:15 General: Appears in no apparent distress. uncomfortable, Behavior is calm, cooperative, cc3 appropriate for age. Pain: Complains of pain in right leg Quality of pain is described as aching, crampy. Neuro: Level of Consciousness is awake, alert, obeys commands, Oriented to person, place, time, situation, Appropriate for age. Cardiovascular: Denies chest pain, Capillary refill < 3 seconds Patient's skin is warm and dry. Respiratory: Airway is patent Respiratory effort is even, unlabored, Respiratory pattern is regular, symmetrical. GI: Abdomen is round non-distended. : No signs and/or symptoms were reported regarding the genitourinary system. EENT: No signs and/or symptoms were reported regarding the EENT system. Derm: Skin is intact, is healthy with good turgor, Skin is normal, black. Musculoskeletal: Circulation, motion, and sensation intact. Range of motion: limited in right leg. 20:45 Reassessment: Patient appears in no apparent distress at this time. Patient and/or cc3 family updated on plan of care and expected duration. Pain level reassessed. Patient is alert, oriented x 3, equal unlabored respirations, skin warm/dry/pink. ANGELIKA Knox discharged the patient home with prescription given. No IV cannula in situ. Patient left ER vitally stable and ambulatory with her family. No valuables left in the patient's room. Patient states feeling better. Patient states symptoms have improved. Vital Signs: 18:30 BP 171 / 102; Pulse 106; Resp 18; Temp 99.3; Pulse Ox 99% on R/A; Weight 97.52 kg; ph Height 5 ft. 7 in. (170.18 cm); Pain 9/10; 19:12 BP 146 / 105; Pulse 95; Resp 18; Pulse Ox 100% on R/A; ae4 20:20 BP 143 / 97; Pulse 98; Resp 19 S; Temp 98.7(O); Pulse Ox 100% on R/A; cc3 18:30 Body Mass Index 33.67 (97.52 kg, 170.18 cm) ph ED Course: 18:08 Patient arrived in ED. as 18:30 Triage completed. ph 18:31 Arm band placed on Patient placed in an exam room. ph 18:37 Madelyn Knox [facility]-C [facility] kb 18:37 Akash Rivera MD is Attending Physician. kb 18:41 Keegan Callaway, RN is Primary Nurse. ae4 19:18 Bed in low position. Call light in reach. Side rails up X 1. Pulse ox on. NIBP on. Warm ae4 blanket given. 19:39 US Extremity Venous Unilateral Ltd In Process Unspecified. EDMS 20:45 No provider procedures requiring assistance completed. Patient did not have IV access cc3 during this emergency room visit. Administered Medications: 19:11 Drug: TORadol 30 mg Route: IM; Site: right gluteus; ae4 20:00 Follow up: Response: No adverse reaction; Pain is decreased cc3 Outcome: 20:16 Discharge ordered by . kb 20:45 Discharged to home ambulatory, with family. cc3 20:45 Condition: stable 20:45 Discharge instructions given to patient, Instructed on discharge instructions, follow up and referral plans. medication usage, Demonstrated understanding of instructions, follow-up care, medications, Prescriptions given X 1. 20:46 Patient left the ED. cc3 Signatures: Dispatcher [employer] EDMA Madelyn Knox FNP-C FNP-Ckb Martinez, Amelia as Hall, Patricia, RN RN Alejandrina Euceda cc3 Keegan Callaway, RN RN ae4
--- NOTE | 2019-05-03 20:18 | EDPHYS ---
Physician Documentation [facility] Name: Vickey Salamanca Age: 38 yrs Sex: Female : 1980 Arrival Date: 05/03/2019 Time: 18:08 Bed 19 Private MD: ED Physician Akash Rivera HPI: 05/03 20:11 This 38 yrs old Black Female presents to ER via Ambulatory with complaints of Leg Pain, kb Leg Swelling. 20:11 The patient presents with pain, swelling. The complaints affect the right leg. Context: kb The problem was sustained at home, resulted from an unknown cause, the patient can fully bear weight, the patient is able to ambulate. The patient has not experienced similar symptoms in the past. The patient has not recently seen a physician. 20:15 Onset: The symptoms/episode began/occurred 1 month(s) ago, and became worse today. kb Modifying factors: The symptoms are alleviated by nothing. the symptoms are aggravated by nothing. Associated signs and symptoms: Pertinent positives: calf tenderness, swelling, Pertinent negatives fever, nausea, numbness, rash, tingling, vomiting, warmth, weakness. Treatment prior to arrival includes: no previous treatment. Severity of symptoms: At their worst the symptoms were moderate, in the emergency department the symptoms are unchanged. Pt reports right leg swelling for a month. States she had some muscle cramps (roque horse) this morning and was concerned about blood clots. 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 ae4 Historical: - Allergies: 18:30 No Known Allergies; ph - Home Meds: 18:30 amlodipine 10 mg tab 1 tab once daily [Active]; losartan 100 mg Oral tab 1 tab once ph daily [Active]; - PMHx: 18:30 Hypertension; ph - PSHx: 18:30 Tubal ligation; ph - Immunization history:: Adult Immunizations unknown. - Social history:: Smoking status: Patient/guardian denies using tobacco. - Ebola Screening: : No symptoms or risks identified at this time. ROS: 20:10 Constitutional: Negative for fever, chills, and weight loss, Cardiovascular: Negative kb for chest pain, palpitations, and edema, Respiratory: Negative for shortness of breath, cough, wheezing, and pleuritic chest pain, Abdomen/GI: Negative for abdominal pain, nausea, vomiting, diarrhea, and constipation, : Negative for injury, bleeding, discharge, and swelling, Skin: Negative for injury, rash, and discoloration, Neuro: Negative for headache, weakness, numbness, tingling, and seizure. 20:10 MS/extremity: Positive for pain, swelling, of the right leg. Exam: 20:10 Constitutional: This is a well developed, well nourished patient who is awake, alert, kb and in no acute distress. Head/Face: Normocephalic, atraumatic. Chest/axilla: Normal chest wall appearance and motion. Nontender with no deformity. No lesions are appreciated. Cardiovascular: Regular rate and rhythm with a normal S1 and S2. No gallops, murmurs, or rubs. Normal PMI, no JVD. No pulse deficits. Respiratory: Lungs have equal breath sounds bilaterally, clear to auscultation and percussion. No rales, rhonchi or wheezes noted. No increased work of breathing, no retractions or nasal flaring. Abdomen/GI: Soft, non-tender, with normal bowel sounds. No distension or tympany. No guarding or rebound. No evidence of tenderness throughout. Back: No spinal tenderness. No costovertebral tenderness. Full range of motion. Skin: Warm, dry with normal turgor. Normal color with no rashes, no lesions, and no evidence of cellulitis. MS/ Extremity: Pulses equal, no cyanosis. Neurovascular intact. Full, normal range of motion. Neuro: Awake and alert, GCS 15, oriented to person, place, time, and situation. Cranial nerves II-XII grossly intact. Motor strength 5/5 in all extremities. Sensory grossly intact. Cerebellar exam normal. Normal gait. Vital Signs: 18:30 BP 171 / 102; Pulse 106; Resp 18; Temp 99.3; Pulse Ox 99% on R/A; Weight 97.52 kg; ph Height 5 ft. 7 in. (170.18 cm); Pain 9/10; 19:12 BP 146 / 105; Pulse 95; Resp 18; Pulse Ox 100% on R/A; ae4 20:20 BP 143 / 97; Pulse 98; Resp 19 S; Temp 98.7(O); Pulse Ox 100% on R/A; cc3 18:30 Body Mass Index 33.67 (97.52 kg, 170.18 cm) ph MDM: 18:38 Patient medically screened. kb 20:10 Data reviewed: vital signs, nurses notes. Data interpreted: Pulse oximetry: on room air kb is 100 %. Interpretation: normal. Counseling: I had a detailed discussion with the patient and/or guardian regarding: the historical points, exam findings, and any diagnostic results supporting the discharge/admit diagnosis, radiology results, the need for outpatient follow up, a family practitioner, to return to the emergency department if symptoms worsen or persist or if there are any questions or concerns that arise at home. 05/03 18:48 Order name: US Extremity Venous Unilateral Ltd; Complete Time: 19:50 kb Administered Medications: : Drug: TORadol 30 mg Route: IM; Site: right gluteus; ae4 20:00 Follow up: Response: No adverse reaction; Pain is decreased cc3 Disposition: 05/04 07:53 Co-signature as Attending Physician, Akash Rivera MD I agree with the assessment and kdr plan of care. Disposition: 05/03/19 20:16 Discharged to Home. Impression: Pain in right leg. - Condition is Stable. - Discharge Instructions: Musculoskeletal Pain. - Prescriptions for Cyclobenzaprine 10 mg Oral Tablet - take 1 tablet by ORAL route every 8 hours As needed; 21 tablet. - Medication Reconciliation Form, Thank You Letter, Antibiotic Education, Prescription Opioid Use form. - Follow up: Emergency Department; When: As needed; Reason: Worsening of condition. Follow up: Private Physician; When: 2 - 3 days; Reason: Recheck today's complaints, Continuance of care, Re-evaluation by your physician. Signatures: Dispatcher [employer] EDPA Madelyn Knox, AIX ADMINISTRATOR-C AIX ADMINISTRATOR-Ckb Akash Rivera MD MD [facility] Kamilla Iyer RN RN ph Alejandrina Euceda cc3 Keegan Callaway, RN RN ae4 Corrections: (The following items were deleted from the chart) 05/03 20:46 20:16 05/03/2019 20:16 Discharged to Home. Impression: Pain in right leg. Condition is cc3 Stable. Forms are Medication Reconciliation Form, Thank You Letter, Antibiotic Education, Prescription Opioid Use. Follow up: Emergency Department; When: As needed; Reason: Worsening of condition. Follow up: Private Physician; When: 2 - 3 days; Reason: Recheck today's complaints, Continuance of care, Re-evaluation by your physician. kb
== END 2019-05-03 20:46 | disposition home or self-care (01) ==
LOC: ER 18:06
DX: M79.604 Pain in right leg (principal); I10 Essential (primary) hypertension
CPT/HCPCS: 93971; 96372; 99284

== ENCOUNTER 2020-04-01 11:08 | Emergency (ER) | payer SELFPAY ==
[2020-04-01] MEDS ORDERED: cloNIDine HCL 0.1 MG TAB ONE (12:48)
[2020-04-01] MEDS ORDERED: KETOROLAC 30 MG/ML INJ ONE (12:48)
--- NOTE | 2020-04-01 13:12 | ER ---
Nurse's Notes [facility] Name: Vickey Salamanca Age: 39 yrs Sex: Female : 1980 Arrival Date: 04/01/2020 Time: 11:10 Bed 19 Private MD: Diagnosis: Prepatellar bursitis, right knee Presentation: 04/01 11:21 Chief complaint: Patient states: it started yesterday and it just got worse, they sent tw2 me home from work, more painful when standing. Coronavirus screen: Patient denies a cough. Patient denies shortness of breath or difficulty breathing. Patient denies measured and/or subjective temperature greater than 100.4F prior to today's visit. Patient denies travel on a cruise ship or to a country the [facility] currently lists as an affected area. Patient denies contact with known and/or suspected case of COVID-19. Ebola Screen: Patient denies travel to an Ebola-affected area in the 21 days before illness onset. Initial Sepsis Screen: Does the patient meet any 2 criteria? HR > 90 bpm. No. Patient's initial sepsis screen is negative. Does the patient have a suspected source of infection? No. Patient's initial sepsis screen is negative. Risk Assessment: Do you want to hurt yourself or someone else? Patient reports no desire to harm self or others. Onset of symptoms was April 01, 2020. 11:21 Method Of Arrival: Ambulatory tw2 11:21 Acuity: KESHA 4 tw2 Triage Assessment: 11:22 General: Appears in no apparent distress. uncomfortable, well groomed, Behavior is tw2 calm, cooperative, appropriate for age. Pain: Complains of pain in right knee. 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 - Social history:: Smoking status: . Screenin:00 Abuse screen: Denies threats or abuse. Nutritional screening: No deficits noted. rb1 Tuberculosis screening: No symptoms or risk factors identified. Fall Risk No fall in past 12 months (0 pts). Secondary diagnosis (15 points) impaired mobility, No IV (0 pts). Ambulatory Aid- None/Bed Rest/Nurse Assist (0 pts). Gait- Impaired (20 pts.). Mental Status- Oriented to own ability (0 pts). Total Milton Fall Scale indicates Low Risk Score (25-44 pts). Fall prevention measures have been instituted. Side Rails Up X 2 Placed close to Nursing Station 1:1 attendant Assigned to Pt. Frequent Obs/Assesments occuring As available Patient and Family Educated on Fall Prevention Program and strategies. Assessment: 12:00 General: Appears in no apparent distress. comfortable, Behavior is calm, cooperative. rb1 Pain: Complains of pain in right knee Pain radiates to right leg Pain currently is 10 out of 10 on a pain scale. Pain: Aggravated by weight bearing. Neuro: Level of Consciousness is awake, alert, obeys commands, Oriented to person, place, time, situation. Cardiovascular: Capillary refill < 3 seconds. Respiratory: Airway is patent Respiratory effort is even, unlabored, Respiratory pattern is regular, symmetrical. GI: No signs and/or symptoms were reported involving the gastrointestinal system. : No signs and/or symptoms were reported regarding the genitourinary system. Derm: Skin is dry, Skin is normal, Skin temperature is warm. Musculoskeletal: Swelling present in right knee. 13:00 Reassessment: Patient appears in no apparent distress at this time. Patient and/or rb1 family updated on plan of care and expected duration. Pain level reassessed. Patient is alert, oriented x 3, equal unlabored respirations, skin warm/dry/pink. 13:55 Reassessment: Patient appears in no apparent distress at this time. Patient and/or rb1 family updated on plan of care and expected duration. Pain level reassessed. Patient is alert, oriented x 3, equal unlabored respirations, skin warm/dry/pink. Patient states feeling better. Vital Signs: 11:21 BP 186 / 126; Pulse 101; Resp 17; Temp 98.4(TE); Pulse Ox 99% on R/A; Weight 97.52 kg tw2 (R); Height 5 ft. 6 in. (167.64 cm); Pain 10/10; 12:30 BP 188 / 111; Pulse 79; Resp 18; Pulse Ox 100% ; rb1 13:30 BP 184 / 114; Pulse 91; Resp 17; Pulse Ox 100% on R/A; rb1 11:21 Body Mass Index 34.70 (97.52 kg, 167.64 cm) tw2 ED Course: 11:10 Patient arrived in ED. as 11:22 Triage completed. tw2 11:22 Arm band placed on. tw2 11:29 Mary Andrews FNP-C is [facility]. snw 11:29 Akash Rivera MD is Attending Physician. snw 11:54 Sallie Serna, RN is Primary Nurse. rb1 12:00 Patient has correct armband on for positive identification. Bed in low position. Call rb1 light in reach. Side rails up X 1. Pulse ox on. NIBP on. 13:10 Troy Stevens MD is Referral Physician. snw 13:13 Knee Right 3 View XRAY In Process Unspecified. EDMS 13:53 No provider procedures requiring assistance completed. Patient did not have IV access rb1 during this emergency room visit. Administered Medications: 12:45 Drug: TORadol 30 mg Route: IM; Site: right deltoid; rb1 13:00 Follow up: Response: No adverse reaction rb1 12:46 Drug: cloNIDine 0.2 mg Route: PO; rb1 13:30 Follow up: Response: No adverse reaction; Blood pressure is unchanged; pt. reports the rb1 she took her blood pressure medicine this morning. Intake: Outcome: 13:11 Discharge ordered by . snw 13:53 Patient left the ED. rb1 13:53 Discharged to home ambulatory, pt. refused a wheelchair rb1 13:53 Condition: stable 13:53 Discharge instructions given to patient, Instructed on discharge instructions, follow up and referral plans. medication usage, Demonstrated understanding of instructions, follow-up care, medications, Prescriptions given X 1. Signatures: Dispatcher [employer] EDMS Mary Andrews FNP-C FNP-Melina Lee as Sallie Serna, RN RN rb1 Mraylou Ferrera RN RN tw2
--- NOTE | 2020-04-01 13:12 | EDPHYS ---
Physician Documentation [facility] Name: Vikcey Salamanca Age: 39 yrs Sex: Female : 1980 Arrival Date: 04/01/2020 Time: 11:10 Bed 19 Private MD: ED Physician Akash Rivera HPI: 04/01 16:37 This 39 yrs old Black Female presents to ER via Ambulatory with complaints of Knee Pain snw - swelling. 16:37 Onset: The symptoms/episode began/occurred suddenly. The patient has not recently seen snw a physician. hx of htn, takes amlodipine and losartan. 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 - Social history:: Smoking status: . ROS: 16:37 Constitutional: Negative for fever, chills, and weight loss, Eyes: Negative for injury, snw pain, redness, and discharge, ENT: Negative for injury, pain, and discharge, Neck: Negative for injury, pain, and swelling, Cardiovascular: Negative for chest pain, palpitations, and edema, Respiratory: Negative for shortness of breath, cough, wheezing, and pleuritic chest pain, Abdomen/GI: Negative for abdominal pain, nausea, vomiting, diarrhea, and constipation, Back: Negative for injury and pain, : Negative for injury, bleeding, discharge, and swelling, Skin: Negative for injury, rash, and discoloration, Neuro: Negative for headache, weakness, numbness, tingling, and seizure, Psych: Negative for depression, anxiety, suicide ideation, homicidal ideation, and hallucinations. 16:37 MS/extremity: Positive for injury or acute deformity, decreased range of motion, swelling, tenderness, of the right knee. Exam: 16:36 Constitutional: This is a well developed, well nourished patient who is awake, alert, snw and in no acute distress. Head/Face: Normocephalic, atraumatic. Eyes: Pupils equal round and reactive to light, extra-ocular motions intact. Lids and lashes normal. Conjunctiva and sclera are non-icteric and not injected. Cornea within normal limits. Periorbital areas with no swelling, redness, or edema. ENT: Nares patent. No nasal discharge, no septal abnormalities noted. Tympanic membranes are normal and external auditory canals are clear. Oropharynx with no redness, swelling, or masses, exudates, or evidence of obstruction, uvula midline. Mucous membranes moist. Neck: Trachea midline, no thyromegaly or masses palpated, and no cervical lymphadenopathy. Supple, full range of motion without nuchal rigidity, or vertebral point tenderness. No Meningismus. Chest/axilla: Normal chest wall appearance and motion. Nontender with no deformity. No lesions are appreciated. Cardiovascular: Regular rate and rhythm with a normal S1 and S2. No gallops, murmurs, or rubs. Normal PMI, no JVD. No pulse deficits. Respiratory: Lungs have equal breath sounds bilaterally, clear to auscultation and percussion. No rales, rhonchi or wheezes noted. No increased work of breathing, no retractions or nasal flaring. Abdomen/GI: Soft, non-tender, with normal bowel sounds. No distension or tympany. No guarding or rebound. No evidence of tenderness throughout. Back: No spinal tenderness. No costovertebral tenderness. Full range of motion. Skin: Warm, dry with normal turgor. Normal color with no rashes, no lesions, and no evidence of cellulitis. Neuro: Awake and alert, GCS 15, oriented to person, place, time, and situation. Cranial nerves II-XII grossly intact. Motor strength 5/5 in all extremities. Sensory grossly intact. Cerebellar exam normal. Normal gait. Psych: Awake, alert, with orientation to person, place and time. Behavior, mood, and affect are within normal limits. 16:36 Musculoskeletal/extremity: ROM: limited active range of motion, Circulation is intact in all extremities. Joints: the right knee displays effusion, pain at rest, painful range of motion, swelling, proximal to patella. Vital Signs: 11:21 BP 186 / 126; Pulse 101; Resp 17; Temp 98.4(TE); Pulse Ox 99% on R/A; Weight 97.52 kg tw2 (R); Height 5 ft. 6 in. (167.64 cm); Pain 10/10; 12:30 BP 188 / 111; Pulse 79; Resp 18; Pulse Ox 100% ; rb1 13:30 BP 184 / 114; Pulse 91; Resp 17; Pulse Ox 100% on R/A; rb1 11:21 Body Mass Index 34.70 (97.52 kg, 167.64 cm) tw2 MDM: 12:13 Patient medically screened. snw 13:09 Data reviewed: vital signs, nurses notes. Data interpreted: Pulse oximetry: on room air snw is 100 %. Interpretation: normal. Counseling: I had a detailed discussion with the patient and/or guardian regarding: the historical points, exam findings, and any diagnostic results supporting the discharge/admit diagnosis, the presence of at least one elevated blood pressure reading (>120/80) during this emergency department visit, radiology results, the need for outpatient follow up, to return to the emergency department if symptoms worsen or persist or if there are any questions or concerns that arise at home. Special discussion: I have referred the patient to see his PCP for further evaluation of high blood pressure. Based on the history and exam findings, there is no indication for further emergent testing or inpatient evaluation. I discussed with the patient/guardian the need to see the orthopedic surgeon for further evaluation of the symptoms. I discussed with the patient/guardian the need to see the primary care provider for further evaluation of the symptoms. 04/01 12:32 Order name: Knee Right 3 View XRAY; Complete Time: 14:20 snw 04/01 13:13 Order name: Kishan wrap-joint; Complete Time: 13:52 snw Administered Medications: 12:45 Drug: TORadol 30 mg Route: IM; Site: right deltoid; rb1 13:00 Follow up: Response: No adverse reaction rb1 12:46 Drug: cloNIDine 0.2 mg Route: PO; rb1 13:30 Follow up: Response: No adverse reaction; Blood pressure is unchanged; pt. reports the rb1 she took her blood pressure medicine this morning. Disposition: 04/02 13:34 Co-signature as Attending Physician, Akash Rivera MD I agree with the assessment and kdr plan of care. Disposition: 04/01/20 13:11 Discharged to Home. Impression: Prepatellar bursitis, right knee. - Condition is Stable. - Discharge Instructions: Bursitis, Knee Sprain, Heat Therapy. - Prescriptions for Mobic 7.5 mg Oral Tablet - take 1 tablet by ORAL route once daily take with food; 20 tablet. - Work release form, Medication Reconciliation Form, Thank You Letter, Antibiotic Education, Prescription Opioid Use form. - Follow up: Private Physician; When: 2 - 3 days; Reason: Recheck today's complaints, Continuance of care, Re-evaluation by your physician. Follow up: Troy Stevens MD; When: 1 week; Reason: Recheck today's complaints, Continuance of care. - Problem is new. - Symptoms have worsened. Signatures: Dispatcher [employer] EDMS Akash Rivera MD MD [facility] Mary Andrews, PLACER MINER-C PLACER MINER-Csnw Sallie Serna, RN RN rb1 Marylou Ferrera RN RN tw2 Corrections: (The following items were deleted from the chart) 04/01 13:53 13:11 04/01/2020 13:11 Discharged to Home. Impression: Prepatellar bursitis, right rb1 knee. Condition is Stable. Forms are Medication Reconciliation Form, Thank You Letter, Antibiotic Education, Prescription Opioid Use. Follow up: Private Physician; When: 2 - 3 days; Reason: Recheck today's complaints, Continuance of care, Re-evaluation by your physician. Follow up: Troy Stevens; When: 1 week; Reason: Recheck today's complaints, Continuance of care. Problem is new. Symptoms have worsened. snw
--- NOTE | 2020-04-01 13:20 | RAD REPORT ---
EXAM DESCRIPTION: RAD - Knee Right 3 View - 04/01/2020 1:13 pm CLINICAL HISTORY: Pain;Swelling COMPARISON: Knee Right 3 View dated 06/13/2018 FINDINGS: No fracture, dislocation or periosteal reaction.Trace joint effusion is present. Spurring is seen at the quadriceps attachment. Minimal calcific density present along the lateral femoral cond yle. Bony hypertrophy at the tibial tubercle is present. These are all stable findings from 2018. No acute or destructive bone process. No soft tissue abnormality. IMPRESSION: No acute bone or joint finding. No significant change from 2018. Clinical concerns for internal derangement or occult bony injury could be further assessed with MR im aging.
[2020-04-01 14:09] VITALS: TEMP 98.4
[2020-04-01 14:14] VITALS: BP 188/111; O2SAT 100
== END 2020-04-01 13:53 | disposition home or self-care (01) ==
LOC: ER 11:08
DX: M70.41 Prepatellar bursitis, right knee (principal); I10 Essential (primary) hypertension
CPT/HCPCS: 96372; 99284

== ENCOUNTER 2020-06-10 17:51 | Inpatient (IN) | payer SELFPAY ==
[2020-06-10] MEDS ORDERED: KETOROLAC 30 MG/ML INJ ONE (19:33)
[2020-06-10 19:56] LABS: Urine Blood TRACE (NEG); Urine Glucose NEGATIVE (NEG); Urine Protein NEGATIVE (NEG); Urine Specific Gravity 1.025 (1.005-1.030)
--- NOTE | 2020-06-10 20:13 | RAD REPORT ---
EXAM DESCRIPTION: RAD - Shoulder Right 2 View - 06/10/2020 7:50 pm CLINICAL HISTORY: Right shoulder pain FINDINGS: No fracture or dislocation is seen. Subchondral cysts right humeral head
--- NOTE | 2020-06-10 20:53 | RAD REPORT ---
EXAM DESCRIPTION: USExtremity Venous Uni Ltd06/10/2020 8:37 pm CLINICAL HISTORY: Right arm pain COMPARISON: None FINDINGS: The right internal jugular, right subclavian, right, right axillary, right brachial, righ t basilic, right ulnar and right radial veins are generally compressible and demonstrate augmentatio n. Doppler demonstrates good flow. Echogenic material is present within the right cephalic vein with diminished blood flow consistent wi th acute thrombus IMPRESSION: Acute thrombus right cephalic vein
--- NOTE | 2020-06-10 21:46 | EDPHYS ---
Physician Documentation [facility] Name: Vickey Salamanca Age: 39 yrs Sex: Female : 1980 Arrival Date: 06/10/2020 Time: 17:52 Bed 25 Private MD: ED Physician Saulo Johnson HPI: 06/10 20:05 This 39 yrs old Black Female presents to ER via Ambulatory with complaints of Shoulder pkl Pain. 20:05 The patient or guardian complains of pain, that is acute. right shoulder. Context: pkl resulted from symptoms started after bowling . Onset: The symptoms/episode began/occurred 2 day(s) ago. Associated signs and symptoms: Pertinent positives: swelling right upper extremity. 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 - Social history:: Smoking status: Patient denies any tobacco usage or history of. ROS: 20:05 Eyes: Negative for injury, pain, redness, and discharge, ENT: Negative for injury, pkl pain, and discharge, Neck: Negative for injury, pain, and swelling, Cardiovascular: Negative for chest pain, palpitations, and edema, Respiratory: Negative for shortness of breath, cough, wheezing, and pleuritic chest pain, Abdomen/GI: Negative for abdominal pain, nausea, vomiting, diarrhea, and constipation, Back: Negative for injury and pain, : Negative for injury, bleeding, discharge, and swelling. 20:05 MS/extremity: Positive for decreased range of motion, pain, of the right shoulder. 20:05 Skin: Negative for acute changes. 20:05 Neuro: Negative for altered mental status. Exam: 20:05 Head/Face: Normocephalic, atraumatic. Eyes: Pupils equal round and reactive to light, pkl extra-ocular motions intact. Lids and lashes normal. Conjunctiva and sclera are non-icteric and not injected. Cornea within normal limits. Periorbital areas with no swelling, redness, or edema. ENT: Nares patent. No nasal discharge, no septal abnormalities noted. Tympanic membranes are normal and external auditory canals are clear. Oropharynx with no redness, swelling, or masses, exudates, or evidence of obstruction, uvula midline. Mucous membranes moist. Neck: Trachea midline, no thyromegaly or masses palpated, and no cervical lymphadenopathy. Supple, full range of motion without nuchal rigidity, or vertebral point tenderness. No Meningismus. Chest/axilla: Normal chest wall appearance and motion. Nontender with no deformity. No lesions are appreciated. Cardiovascular: Regular rate and rhythm with a normal S1 and S2. No gallops, murmurs, or rubs. Normal PMI, no JVD. No pulse deficits. Respiratory: Lungs have equal breath sounds bilaterally, clear to auscultation and percussion. No rales, rhonchi or wheezes noted. No increased work of breathing, no retractions or nasal flaring. Abdomen/GI: Soft, non-tender, with normal bowel sounds. No distension or tympany. No guarding or rebound. No evidence of tenderness throughout. Back: No spinal tenderness. No costovertebral tenderness. Full range of motion. Skin: Warm, dry with normal turgor. Normal color with no rashes, no lesions, and no evidence of cellulitis. Neuro: Awake and alert, GCS 15, oriented to person, place, time, and situation. Cranial nerves II-XII grossly intact. Motor strength 5/5 in all extremities. Sensory grossly intact. Cerebellar exam normal. Normal gait. 20:05 Musculoskeletal/extremity: Extremities: grossly normal except: noted in the right shoulder: decreased ROM, pain. Vital Signs: 18:17 BP 144 / 106; Pulse 108; Resp 15 S; Temp 98.6(TE); Pulse Ox 100% on R/A; Weight 102.06 ca1 kg (R); Height 5 ft. 7 in. (170.18 cm) (R); 19:02 BP 145 / 83; Pulse 110; Resp 17 S; Pulse Ox 99% on R/A; jd3 20:39 BP 148 / 89; Pulse 101; Resp 16 S; Pulse Ox 100% on R/A; jd3 22:00 BP 142 / 95; Pulse 107; Resp 18 S; Pulse Ox 100% on R/A; jd3 23:12 BP 143 / 97; Pulse 108; Resp 18 S; Pulse Ox 99% on R/A; jd3 18:17 Body Mass Index 35.24 (102.06 kg, 170.18 cm) ca1 MDM: 19:08 Patient medically screened. pkl 21:37 Data reviewed: vital signs, nurses notes, lab test result(s), EKG, radiologic studies, pkl CT scan, ultrasound. ED course: Talked to Baljinder for observation. 06/10 19:44 Order name: Urine Dipstick--Ancillary (enter results); Complete Time: 21:27 ar5 06/10 19:44 Order name: Urine --Ancillary (enter results); Complete Time: 21:27 ar5 06/10 21:35 Order name: CBC with Diff pkl 06/10 21:35 Order name: Chem 7; Complete Time: 22:47 pkl 06/10 21:35 Order name: D-Dimer; Complete Time: 22:55 pkl 06/10 22:15 Order name: CREATININE WHOLE BLOOD; Complete Time: 22:25 EDMS 06/10 19:18 Order name: Shoulder Right (2 View) XRAY; Complete Time: 21:27 pkl 06/10 19:18 Order name: US Extremity Venous Unilateral Ltd; Complete Time: 21:27 pkl 06/10 19:21 Order name: Urine Test (obtain specimen); Complete Time: 19:34 ar5 06/10 19:34 Order name: Urine Dipstick-Ancillary (obtain specimen); Complete Time: 19:34 ar5 06/10 21:37 Order name: CT Chest For PE Angio pkl Administered Medications: 19:41 Drug: TORadol 60 mg Route: IM; Site: left gluteus; jd3 20:30 Follow up: Response: No adverse reaction jd3 22:13 Drug: NS 0.9% 1000 ml Route: IV; Rate: 125 ml/hr; Site: left antecubital; jd3 23:25 Follow up: Response: No adverse reaction; IV Status: Infusion continued upon admission jd3 Disposition: 06/10/20 21:46 Hospitalization ordered by William Harris for Observation. Preliminary diagnosis is Acute thrombus right cephalic vein. - Bed requested for Telemetry/MedSurg (observation). - Status is Observation. jd3 - Condition is Stable. - Problem is new. - Symptoms are unchanged. Signatures: Dispatcher [employer] EDMS Chelsea Lua RN DEEPA mw Saulo Johnson MD MD pkl Baljinder Shipley, INNER TUBE TUBER MACHINE OPERATOR-C INNER TUBE TUBER MACHINE OPERATOR-Cla1 Toro Rios RN RN jd3 Bertha Costello ar5 Ifeoma Ang RN RN ca1 Corrections: (The following items were deleted from the chart) 22:11 21:46 Hospitalization Ordered by William Harris DO for Observation. Preliminary mw diagnosis is Acute thrombus right cephalic vein. Bed requested for Telemetry/MedSurg (observation). Status is Observation. Condition is Stable. Problem is new. Symptoms are unchanged. pkl 23:35 22:11 06/10/2020 21:46 Hospitalization Ordered by William Harris DO for Observation. jd3 Preliminary diagnosis is Acute thrombus right cephalic vein. Bed requested for Telemetry/MedSurg (observation). Status is Observation. Condition is Stable. Problem is new. Symptoms are unchanged. mw
--- NOTE | 2020-06-10 21:46 | ER ---
Nurse's Notes [facility] Name: Vickey Salamanca Age: 39 yrs Sex: Female : 1980 Arrival Date: 06/10/2020 Time: 17:52 Bed 25 [facility] MD: Diagnosis: Acute thrombus right cephalic vein Presentation: 06/10 18:17 Chief complaint: Patient states: Went bowling Tuesday evening. R shoulder pain since ca1 yesterday, worse last night, unable to sleep with the pain. Swelling on R hand and R arm. Coronavirus screen: Client denies travel out of the [place] in the last 14 days. At this time, the client does not indicate any symptoms associated with coronavirus-19. Ebola Screen: Patient negative for fever greater than or equal to 101.5 degrees Fahrenheit, and additional compatible Ebola Virus Disease symptoms Patient denies exposure to infectious person. Patient denies travel to an Ebola-affected area in the 21 days before illness onset. No symptoms or risks identified at this time. Initial Sepsis Screen: Does the patient meet any 2 criteria? No. Patient's initial sepsis screen is negative. Does the patient have a suspected source of infection? No. Patient's initial sepsis screen is negative. Risk Assessment: Do you want to hurt yourself or someone else? Patient reports no desire to harm self or others. Onset of symptoms was June 10, 2020. 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 - Social history:: Smoking status: Patient denies any tobacco usage or history of. Screenin:06 Abuse screen: Denies threats or abuse. Nutritional screening: No deficits noted. jd3 Tuberculosis screening: No symptoms or risk factors identified. Fall Risk Ambulatory Aid- None/Bed Rest/Nurse Assist (0 pts). Gait- Normal/Bed Rest/Wheelchair (0 pts) Mental Status- Oriented to own ability (0 pts). Total Milton Fall Scale indicates No Risk (0-24 pts). Assessment: 19:05 General: Appears in no apparent distress. uncomfortable, Behavior is calm, cooperative, jd3 appropriate for age. Pain: Complains of pain in right hand and right arm Quality of pain is described as tender. Neuro: Level of Consciousness is awake, alert, obeys commands, Oriented to person, place, time, situation. Cardiovascular: Denies chest pain, Capillary refill < 3 seconds Patient's skin is warm and dry. Respiratory: Airway is patent Respiratory effort is even, unlabored, Respiratory pattern is regular, symmetrical, Denies cough, shortness of breath. GI: No signs and/or symptoms were reported involving the gastrointestinal system. : No signs and/or symptoms were reported regarding the genitourinary system. EENT: No signs and/or symptoms were reported regarding the EENT system. Derm: Skin is intact, Skin is dry, Skin is normal, Skin temperature is warm. Musculoskeletal: Circulation, motion, and sensation intact. Range of motion: limited in right shoulder Swelling present in right hand and right arm. 20:39 Reassessment: Patient appears in no apparent distress at this time. Patient and/or jd3 family updated on plan of care and expected duration. Pain level reassessed. Patient is alert, oriented x 3, equal unlabored respirations, skin warm/dry/pink. 22:00 Reassessment: Patient appears in no apparent distress at this time. No changes from jd3 previously documented assessment. Patient and/or family updated on plan of care and expected duration. Pain level reassessed. Patient is alert, oriented x 3, equal unlabored respirations, skin warm/dry/pink. 23:12 Reassessment: Patient appears in no apparent distress at this time. Patient and/or jd3 family updated on plan of care and expected duration. Pain level reassessed. Patient is alert, oriented x 3, equal unlabored respirations, skin warm/dry/pink. awaiting orders for admission. 23:24 Reassessment: Patient appears in no apparent distress at this time. Patient and/or jd3 family updated on plan of care and expected duration. Pain level reassessed. Patient is alert, oriented x 3, equal unlabored respirations, skin warm/dry/pink. report given to Estee ARENAS. Vital Signs: 18:17 BP 144 / 106; Pulse 108; Resp 15 S; Temp 98.6(TE); Pulse Ox 100% on R/A; Weight 102.06 ca1 kg (R); Height 5 ft. 7 in. (170.18 cm) (R); 19:02 BP 145 / 83; Pulse 110; Resp 17 S; Pulse Ox 99% on R/A; jd3 20:39 BP 148 / 89; Pulse 101; Resp 16 S; Pulse Ox 100% on R/A; jd3 22:00 BP 142 / 95; Pulse 107; Resp 18 S; Pulse Ox 100% on R/A; jd3 23:12 BP 143 / 97; Pulse 108; Resp 18 S; Pulse Ox 99% on R/A; jd3 18:17 Body Mass Index 35.24 (102.06 kg, 170.18 cm) ca1 ED Course: 17:52 Patient arrived in ED. ds1 18:20 Triage completed. ca1 18:25 Arm band placed on right wrist. ca1 19:02 Toro Rios, RN is Primary Nurse. jd3 19:07 Patient has correct armband on for positive identification. Bed in low position. Call jd3 light in reach. Side rails up X 1. Pulse ox on. NIBP on. 19:08 Saulo Johnson MD is Attending Physician. pkl 19:50 Shoulder Right (2 View) XRAY In Process Unspecified. EDMS 20:35 US Extremity Venous Unilateral Ltd In Process Unspecified. EDMS 21:42 Radiology exam delayed due to IV insertion attempt and/or patient not having vm2 appropriate IV at this time. 21:45 William Harris DO is Hospitalizing Provider. pkl 21:53 Inserted saline lock: 20 gauge in left antecubital area, using aseptic technique. Blood jd3 collected. 22:17 CT Chest For PE Angio In Process Unspecified. EDMS 23:24 No provider procedures requiring assistance completed. Patient admitted, IV remains in jd3 place. Administered Medications: 19:41 Drug: TORadol 60 mg Route: IM; Site: left gluteus; jd3 20:30 Follow up: Response: No adverse reaction jd3 22:13 Drug: NS 0.9% 1000 ml Route: IV; Rate: 125 ml/hr; Site: left antecubital; jd3 23:25 Follow up: Response: No adverse reaction; IV Status: Infusion continued upon admission jd3 Outcome: 21:46 Decision to Hospitalize by Provider. pkl 23:24 Condition: stable jd3 23:24 Instructed on the need for admit, Demonstrated understanding of instructions. 23:35 Patient left the ED. jd3 23:35 Admitted to Med/surg accompanied by tech, via wheelchair, room 219, with chart, Report jd3 called to Estee ARENAS Signatures: Dispatcher [employer] EDSaulo Taylor MD MD pkRhona Nixon ds1 Viv Miguel2 Toro Rios RN RN jd3 Ifeoma Ang RN RN ca1
--- NOTE | 2020-06-10 21:54 | P.HP ---
Certification for Inpatient Patient admitted to: Observation With expected LOS: <2 Midnights Patient will require the following post-hospital care: None Practitioner: I am a practitioner with admitting privileges, knowledge of patient current condition, hospital course, and medical plan of care. Services: Services provided to patient in accordance with Admission requirements found in Title 42 Section 412.3 of the Code of Federal Regulations <Baljinder Shipley - Last Filed: 06/10/20 22:53> Patient admitted to: Observation <Arturo Crisostomo - Last Filed: 06/11/20 14:06> Patient History Date of Service: 06/10/20 Primary Care Provider: None Reason for admission: DVT History of Present Illness: 39-year-old Afro-Tristanian female presents emergency department for complaint of right shoulder pain. Patient reports that she went bowling on Tuesday and has had pain in the shoulder since. Patient was evaluated in the emergency department with x-ray of the right shoulder and ultrasound of the right upper extremity. X-ray negative for any acute findings but ultrasound revealed DVT of the right cephalic vein. Patient is uninsured and states she is on likely to be able to afford medication if prescribed from the emergency department. ED provider wishes to admit patient for further evaluation and management. When I saw the patient in the emergency department she was awake, alert, oriented x4. Patient does have some mild swelling to the right upper extremity. Patient without shortness of breath at this time. CT PE protocol done and negative. Patient be admitted under observation status for further evaluation and management. Home medications list reviewed: Yes - Past Medical/Surgical History Has patient received pneumonia vaccine in the past: No -: Hypertension -: Tubal ligation Psychosocial/ Personal History: Patient lives with her significant other and 5 children at home. Is currently unemployed. - Family History Father -: Hypertension, Diabetes Mother -: Hypertension, Diabetes - Social History Smoking Status: Never smoker Alcohol use: Yes CD- Drugs: No Caffeine use: Yes Place of Residence: Home <ViolettaBaljinder - Last Filed: 06/10/20 22:53> Date of Service: 06/11/20 <Arturo Crisostomo - Last Filed: 06/11/20 14:06> Allergies No Known Drug Allergies Allergy (Verified 06/11/20 00:11) Unknown Review of Systems 10-point ROS is otherwise unremarkable Musculoskeletal: Shoulder Pain (Right shoulder pain) <Baljinder Shipley - Last Filed: 06/10/20 22:53> Physical Examination - Physical Exam General: Alert, In no apparent distress HEENT: Atraumatic, Normocephalic, PERRLA, Mucous membr. moist/pink Neck: Supple Respiratory: Clear to auscultation bilaterally, Normal air movement Cardiovascular: Edema (Mild edema right upper extremity) Capillary refill: <2 Seconds Gastrointestinal: Normal bowel sounds, Soft and benign, No tenderness, No rebound, No guarding Musculoskeletal: No contractures, No erythema, No tenderness Integumentary: No significant lesion, No tenderness/swelling, No erythema Neurological: Normal speech, Normal strength at 5/5 x4 extr, Normal tone, Sensation intact Lymphatics: No axilla or inguinal lymphadenopathy <Baljinder Shipley - Last Filed: 06/10/20 22:53> - Studies Laboratory Data (last 24 hrs) 06/11/20 04:59: Sodium 140, Potassium 3.7, BUN 16, Creatinine 0.69, Glucose 117 H 06/11/20 04:59: WBC 11.3 H D, Hgb 12.4, Hct 39.0, Plt Count 294 06/10/20 21:48: Sodium 141, Potassium 4.0, BUN 19 H, Creatinine 0.95, Glucose 115 H 06/10/20 21:48: WBC 13.7 H, Hgb 13.2, Hct 41.6, Plt Count 332 Microbiology Data (last 24 hrs): 06/11/20 00:30 Nasopharnyx Coronavirus COVID-19 PCR - Final <Arturo Crisostomo - Last Filed: 06/11/20 14:06> Assessment and Plan - Plan Assessment Acute DVT of the right cephalic vein Hypertension Plan Acute DVT of the right cephalic vein: Will continue with Lovenox 1 milligram/kilogram subcutaneous twice daily at this time. Will involve social work as patient does not have insurance or adequate funding to obtain medications. Anticipate patient will be able to receive Eliquis if she can receive financial assistance. Will provide pain medication as needed. Hypertension: Obtain and verify patient's home medications. Will continue to monitor patient's blood pressure closely. 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
[2020-06-10] MEDS ORDERED: NA CHLORIDE 0.9% 1,000 ML ONE (22:02)
[2020-06-10 22:19] LABS: Basophils % 0.8 % (0-1.3); Hematocrit 41.6 % (36.0-45.0); Lymphocytes % 28.9 % (15.3-44.8); MPV 8.6 fL (7.6-11.3); RBC Red Blood Cell Count 5.45 M/uL (3.86-4.86)
[2020-06-10] MEDS ORDERED: HYDROCODONE/APAP 7.5/325 MG TAB PO PRN (23:47)
[2020-06-10] MEDS ORDERED: ONDANSETRON 4 MG/2 ML VIAL IV PRN (23:47)
[2020-06-10] MEDS ORDERED: ACETAMINOPHEN 500 MG TAB PO PRN (23:47)
[2020-06-11 00:10] VITALS: BMI 35.2
[2020-06-11 00:40] LABS: Anisocytosis SLIGHT; Blood Morphology Comment NOTED (NOT SEEN); Platelet Estimate ADEQ; Urine White Blood Cell Casts OK
[2020-06-11] MEDS ORDERED: AMLODIPINE 10 MG TAB PO ONE (00:48)
[2020-06-11] MEDS ORDERED: ENOXAPARIN 100 MG/ML SYR SQ SCH (01:00)
[2020-06-11 01:04] VITALS: O2SAT 99
[2020-06-11] MEDS ORDERED: HYDRALAZINE HCL 20 MG/ML VIAL IV PRN (03:29)
[2020-06-11 05:34] LABS: Basophils % 0.6 % (0-1.3); Lymphocytes % 26.4 % (15.3-44.8); MPV 8.6 fL (7.6-11.3); RBC Red Blood Cell Count 5.11 M/uL (3.86-4.86)
[2020-06-11 05:53] LABS: BUN Blood Urea Nitrogen 16 mg/dL (7-18); Bicarbonate 28 mmol/L (21-32); Glucose Level 117 mg/dL (74-106); Potassium 3.7 mmol/L (3.5-5.1); Sodium Level 140 mmol/L (136-145)
--- NOTE | 2020-06-11 10:46 | RAD REPORT ---
EXAM DESCRIPTION: CT - Chest For Pe Angio - 06/11/2020 8:22 am CLINICAL HISTORY: The patient is 39 years old and is Female; acute thrombus right cephalic v ein TECHNIQUE: Axial computed tomographic angiography images of the chest with intravenous contrast. S agittal and coronal reformatted images were created and reviewed. This CT exam was performed using one or more of the following dose reduction techniques: automated exposure control, adjustment of t he mA and/or kV according to patient size, and/or use of iterative reconstruction technique. MIP re constructed images were created and reviewed. COMPARISON: September 25, 2015 FINDINGS: Pulmonary arteries: Unremarkable. No pulmonary embolism. Aorta: No acute findings. No thoracic aortic aneurysm. Lungs: Unremarkable. No mass. No consolidation. Pleural space: Unremarkable. No significant effusion. No pneumothorax. Heart: Unremarkable. No cardiomegaly. No significant pericardial effusion. No evidence of RV dysfunction. Bones/joints: No acute fracture. No dislocation. Soft tissues: Unremarkable. Lymph nodes: Unremarkable. No enlarged lymph nodes. IMPRESSION: No pulmonary embolus. Electronically signed by: James Brady MD 06/10/2020 10:37 PM CDT Due to temporary technical issues with the PACS/Fluency reporting system, reports are being signed by the in house radiologist without review as a courtesy to ensure prompt reporting. The interpreting r adiologist is fully responsible for the content of the report.
--- NOTE | 2020-06-11 11:29 | P.DS ---
Admission Date: 06/11/20 Discharge Date: 06/11/20 Primary Care Provider: None Disposition: ROUTINE DISCHARGE Discharge Condition: GOOD Reason for Admission: DVT Brief History of Present Illness: 39-year-old Afro-Bermudian female presents emergency department for complaint of right shoulder pain. Patient reports that she went bowling on Tuesday and has had pain in the shoulder since. Patient was evaluated in the emergency department with x-ray of the right shoulder and ultrasound of the right upper extremity. X-ray negative for any acute findings but ultrasound revealed DVT of the right cephalic vein. Patient is uninsured and states she is on likely to be able to afford medication if prescribed from the emergency department. ED provider wishes to admit patient for further evaluation and management. When I saw the patient in the emergency department she was awake, alert, oriented x4. Patient does have some mild swelling to the right upper extremity. Patient without shortness of breath at this time. CT PE protocol done and negative. Patient be admitted under observation status for further evaluation and management. Hospital Course: Acute DVT of the right cephalic vein: Hypertension: Patient was started on Lovenox and was monitored under telemetry Consulted social science instructor as patient does not have insurance or adequate funding to obtain medications. Continued patient's home medications. Antihypertensives titrated Patient is being discharged home today in a stable condition with advice to follow up with PCP in 1 week Vital Signs/Physical Exam: Temp Pulse Resp BP Pulse Ox 97.4 F 91 H 16 140/85 98 06/11/20 08:00 06/11/20 08:00 06/11/20 09:02 06/11/20 08:00 06/11/20 09:02 General: Alert, In no apparent distress HEENT: Atraumatic, Normocephalic Neck: Supple Respiratory: Clear to auscultation bilaterally Cardiovascular: Normal pulses, Regular rate/rhythm Capillary refill: <2 Seconds Gastrointestinal: Soft and benign, W/out hepatosplenomegaly Musculoskeletal: No clubbing, No swelling Neurological: Normal speech, Normal strength at 5/5 x4 extr Lymphatics: No axilla or inguinal lymphadenopathy Laboratory Data at Discharge: WBC 11.3 K/uL (4.3-10.9) H D 06/11/20 04:59 Hgb 12.4 g/dL (12.0-15.0) 06/11/20 04:59 Hct 39.0 % (36.0-45.0) 06/11/20 04:59 Plt Count 294 K/uL (152-406) 06/11/20 04:59 Sodium 140 mmol/L (136-145) 06/11/20 04:59 Potassium 3.7 mmol/L (3.5-5.1) 06/11/20 04:59 BUN 16 mg/dL (7-18) 06/11/20 04:59 Creatinine 0.69 mg/dL (0.55-1.3) 06/11/20 04:59 Glucose 117 mg/dL (74-106) H 06/11/20 04:59 Home Medications: Amlodipine [Norvasc*] 10 mg PO BEDTIME 06/11/20 Apixaban [Eliquis] 5 mg PO BID #60 tablet 06/11/20 Losartan Potassium [Cozaar] 100 mg PO DAILY 06/11/20 New Medications: Apixaban [Eliquis] 5 mg PO BID #60 tablet Time spent managing pt's care (in minutes): 38
[2020-06-11 12:11] VITALS: BP 134/80; TEMP 97.6
== END 2020-06-11 13:12 | disposition home or self-care (01) | DRG 301 ==
LOC: ER 17:51 → ERHOLD 22:33 → 2ND 23:25 → OBSVTOIN 06-11 08:14
PROVIDERS: ADMIT Family Medicine; ATTEND Family Medicine
DX: I82.611 Acute embolism and thrombosis of superficial veins of right upper extremity (principal); I10 Essential (primary) hypertension; Z98.51 Tubal ligation status; Z79.899 Other long term (current) drug therapy; Z56.0 Unemployment, unspecified; Z11.59 Encounter for screening for other viral diseases
CPT/HCPCS: 36415; 71275; 80048; 81003; 81025; 82565; 85025; 85379; 93971; 96360; 96372; 99285; G0378; J1650; J7030; Q9967; U0002

== ENCOUNTER 2020-06-23 14:13 | Emergency (ER) | payer SELFPAY ==
--- NOTE | 2020-06-23 16:37 | RAD REPORT ---
EXAM DESCRIPTION: US - Extremity Venous Uni Ltd - 06/23/2020 4:23 pm CLINICAL HISTORY: Right arm pain and swelling COMPARISON: June 10 TECHNIQUE: Real-time sonographic evaluation of the right upper extremity deep venous systems was per formed. FINDINGS: Normal compressibility, flow augmentation, phasic flow and spontaneous flow are identified in the right upper extremity deep venous system. No intraluminal filling defects seen. Internal jugu lar and subclavian veins are normal as well. Echogenic material is present in the cephalic vein. This superficial thrombosis has improved but not resolved since June 10. IMPRESSION: No acute deep venous thrombosis in the right upper extremity. Partial resolution of superficial thrombosis in the cephalic vein.
--- NOTE | 2020-06-23 17:05 | ER ---
Nurse's Notes [facility] Name: Vickey Salamanca Age: 39 yrs Sex: Female : 1980 Arrival Date: 06/23/2020 Time: 14:17 Bed 5 Private MD: Diagnosis: Localized swelling, mass and lump, left upper limb Presentation: 06/23 14:25 Chief complaint: Patient states: "I have a DVT in my right arm and I am already taking aa5 Eliquis but today I noticed a swollen area on my right arm". Pt reports pain to right arm has improved since taking Eliquis. Denies SOB, denies chest pain. Coronavirus screen: Client denies travel out of the [place] in the last 14 days. At this time, the client does not indicate any symptoms associated with coronavirus-19. Ebola Screen: Patient negative for fever greater than or equal to 101.5 degrees Fahrenheit, and additional compatible Ebola Virus Disease symptoms. Initial Sepsis Screen: Does the patient meet any 2 criteria? No. Patient's initial sepsis screen is negative. Does the patient have a suspected source of infection? No. Patient's initial sepsis screen is negative. Risk Assessment: Do you want to hurt yourself or someone else? Patient reports no desire to harm self or others. Onset of symptoms was May 2020. 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 - Social history:: Smoking status: Patient denies any tobacco usage or history of. Screenin:37 Abuse screen: Denies threats or abuse. Nutritional screening: No deficits noted. ll2 Tuberculosis screening: No symptoms or risk factors identified. Fall Risk None identified. Assessment: 15:20 General: Appears in no apparent distress. Behavior is calm, cooperative, appropriate ll2 for age. Pain: Denies pain. Neuro: Level of Consciousness is awake, alert, obeys commands, Oriented to person, place, time, situation, Cost Controller are equal bilaterally. Cardiovascular: Capillary refill < 3 seconds Patient's skin is warm and dry. Respiratory: Airway is patent Respiratory effort is even, unlabored, Respiratory pattern is regular, symmetrical. GI: No signs and/or symptoms were reported involving the gastrointestinal system. : No signs and/or symptoms were reported regarding the genitourinary system. EENT: No signs and/or symptoms were reported regarding the EENT system. Derm: Skin is intact, is healthy with good turgor, Skin is dry, Skin is pink, warm \\T\\ dry. Skin temperature is warm Reports Pt states, " I was hospitalized on the with a DVT in my right arm. today i noticed this lump right here on my wrist, and i had some shooting pain up my arm earlier, but no pain now.". Musculoskeletal: Circulation, motion, and sensation intact. Range of motion: intact in all extremities. 15:30 Reassessment: ERP to bedside, advised pt of obtaining an ultrasound. Pt states, "I have ll2 some mild pain in my shoulder, but it's nothing severe like last time I had this happen.". 15:47 Reassessment: Pt states, "my last menstrual cycle was about 5 months ago, Im going ll2 through the change right now so they are not regular.". 15:57 Reassessment: Patient appears in no apparent distress at this time. Patient and/or ll2 family updated on plan of care and expected duration. Pain level reassessed. Patient is alert, oriented x 3, equal unlabored respirations, skin warm/dry/pink. Patient denies pain at this time. 16:54 Reassessment: Pt and ERP notified of results returned, pt updated on approximate wait ll2 time. Vital Signs: 14:25 BP 150 / 101; Pulse 105; Resp 18 S; Temp 98.4(O); Pulse Ox 100% on R/A; Weight 102.06 aa5 kg (R); Height 5 ft. 7 in. (170.18 cm) (R); 15:36 BP 142 / 102; Resp 16; Pulse Ox 100% on R/A; Pain 0/10; ll2 16:23 BP 151 / 91; Pulse 95; Resp 16; Pulse Ox 100% on R/A; Pain 0/10; ll2 14:25 Body Mass Index 35.24 (102.06 kg, 170.18 cm) aa5 ED Course: 14:17 Patient arrived in ED. as 14:25 Arm band placed on. aa5 14:27 Triage completed. aa5 15:18 Edurad Mae NP is PHCP. pm1 15:18 Will Garcia MD is Attending Physician. pm1 15:20 Lu Callahan, RN is Primary Nurse. ll2 15:29 Patient has correct armband on for positive identification. Placed in gown. Bed in low ll2 position. Call light in reach. Side rails up X 1. Warm blanket given. 16:24 Extremity Venous Uni Ltd US In Process Unspecified. EDMS 16:55 No provider procedures requiring assistance completed. ll2 17:15 Patient did not have IV access during this emergency room visit. ll2 Administered Medications: No medications were administered Outcome: 17:04 Discharge ordered by . pm1 17:14 Discharged to home ambulatory. ll2 17:14 Condition: stable 17:14 Discharge instructions given to patient, Instructed on discharge instructions, follow up and referral plans. Demonstrated understanding of instructions, follow-up care. 17:16 Patient left the ED. ll2 Signatures: Dispatcher [employer] EDMelina Knowles Audri, RN RN aa5 Eduard Mae NP ANESTHESIOLOGY FELLOW pm1 Lu Callahan, DEEPA RN ll2
--- NOTE | 2020-06-23 17:05 | EDPHYS ---
Physician Documentation [facility] Name: Vickey Salamanca Age: 39 yrs Sex: Female : 1980 Arrival Date: 06/23/2020 Time: 14:17 Bed 5 Private MD: ED Physician Will Garcia HPI: 06/23 15:29 This 39 yrs old Black Female presents to ER via Ambulatory with complaints of Arm pm1 Problem - swelling/lump. 15:29 The patient or guardian complains of swelling. The complaints affect the dorsal aspect pm1 of right forearm proximal to wrist. Context: The problem was sustained at an unknown location, resulted from unknown cause. Onset: The symptoms/episode began/occurred today. Treatment prior to arrival includes: Patient has been taking eliquis for recent diagnosis of DVT to right forearm. Modifying factors: The symptoms are alleviated by nothing. the symptoms are aggravated by nothing. Associated signs and symptoms: Pertinent negatives: decreased range of motion, deformity, erythema, fever, numbness, pain, tingling. The patient has been recently been admitted at [facility], june 10 for DVT to right forearm and discharged the following day. Has not followed up with MD since discharge. 39 yo female presents to the ER with right forearm swelling. Patient was diagnosed with DVT to right forearm on Jun 10, 2020 distal to right elbow per patient. She was admitted to the hospital that day and discharged home with eliquis. Patient reports marked improvement in right arm swelling since taking eliquis but she noticed some swelling to the dorsal aspect of her right forearm just proximal to the right wrist. Denies any fever or trauma. Denies any pain to the area. 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 - Social history:: Smoking status: Patient denies any tobacco usage or history of. ROS: 15:35 Constitutional: Negative for fever, chills, and weight loss, Eyes: Negative for injury, pm1 pain, redness, and discharge, Neck: Negative for injury, pain, and swelling, Cardiovascular: Negative for chest pain, palpitations, and edema, Respiratory: Negative for shortness of breath, cough, wheezing, and pleuritic chest pain, Abdomen/GI: Negative for abdominal pain, nausea, vomiting, diarrhea, and constipation, Back: Negative for injury and pain. 15:35 Skin: Negative for injury, rash, and discoloration, Neuro: Negative for headache, weakness, numbness, tingling, and seizure. 15:35 MS/extremity: Positive for swelling, of the dorsal aspect of right forearm proximal to right wrist, Negative for decreased range of motion, deformity, pain, paresthesias, tenderness, tingling, warmth. Exam: 15:35 Constitutional: This is a well developed, well nourished patient who is awake, alert, pm1 and in no acute distress. Head/Face: Normocephalic, atraumatic. 15:35 Skin: Warm, dry with normal turgor. Normal color with no rashes, no lesions, and no evidence of cellulitis. 15:35 Cardiovascular: Exam negative for acute changes, Rate: normal, Rhythm: regular, Pulses: no pulse deficits are appreciated, Pulses are 2+ in right radial artery. 15:35 Respiratory: Exam negative for acute changes, respiratory distress, shortness of breath. 15:35 Musculoskeletal/extremity: Extremities: grossly normal except: noted in the dorsal aspect of right forearm proximal to right wrist: mild swelling, There is no evidence of decreased ROM, deformity, tenderness, the right arm Sensation intact. 15:35 Neuro: Exam negative for acute changes, Orientation: is normal, Mentation: is normal, Motor: is normal, moves all fours, Sensation: is normal, no obvious gross deficits, Gait: is steady, at a normal pace, without difficulty. Vital Signs: 14:25 BP 150 / 101; Pulse 105; Resp 18 S; Temp 98.4(O); Pulse Ox 100% on R/A; Weight 102.06 aa5 kg (R); Height 5 ft. 7 in. (170.18 cm) (R); 15:36 BP 142 / 102; Resp 16; Pulse Ox 100% on R/A; Pain 0/10; ll2 16:23 BP 151 / 91; Pulse 95; Resp 16; Pulse Ox 100% on R/A; Pain 0/10; ll2 14:25 Body Mass Index 35.24 (102.06 kg, 170.18 cm) aa5 MDM: 15:19 Patient medically screened. pm1 16:28 ED course: Patient's ultrasound completed. Pending results. pm1 17:03 Data reviewed: vital signs. Data interpreted: Pulse oximetry: on room air is 100 %. pm1 Interpretation: normal. Counseling: I had a detailed discussion with the patient and/or guardian regarding: the historical points, exam findings, and any diagnostic results supporting the discharge/admit diagnosis, radiology results, the need for outpatient follow up, to return to the emergency department if symptoms worsen or persist or if there are any questions or concerns that arise at home. 17:10 ED course: Patient recalled that the swelling to dorsum of right forearm just proximal pm1 to the right wrist just after stirring and smashing the potatoes to mash them. After seeing the swelling she switched to the left hand. swelling is likely muscular skeletal in nature. U/S results show no acute DVT and partial resolution of superficial thrombus of cephalic vein. 06/23 15:29 Order name: Extremity Venous Uni Ltd ; Complete Time: 16:39 pm1 Administered Medications: No medications were administered Disposition: 17:20 Co-signature as Attending Physician, Will Garcia MD. rn Disposition: 06/23/20 17:04 Discharged to Home. Impression: Localized swelling, mass and lump, left upper limb. - Condition is Stable. - Medication Reconciliation Form, Thank You Letter, Antibiotic Education, Prescription Opioid Use form. - Follow up: Emergency Department; When: As needed; Reason: Worsening of condition. Follow up: Private Physician; When: 2 - 3 days; Reason: Recheck today's complaints, Continuance of care, Re-evaluation by your physician. - Problem is new. - Symptoms have improved. Signatures: Dispatcher [employer] EDMS Will Garcia MD MD rn Calderon, Audri RN RN aa5 Eduard Mae, ANGELIKA UX DESIGNER pm1 Lu Callahan RN RN ll2 Corrections: (The following items were deleted from the chart) 15:44 15:29 Extremity Venous Uni Ltd+US.RAD.BRZ ordered. EDMS EDMS 16:23 15:51 Extremity Venous Uni Ltd+US.RAD.BRZ ordered. EDMS EDMS 17:16 17:04 06/23/2020 17:04 Discharged to Home. Impression: Localized swelling, mass and ll2 lump, left upper limb. Condition is Stable. Forms are Medication Reconciliation Form, Thank You Letter, Antibiotic Education, Prescription Opioid Use. Follow up: Emergency Department; When: As needed; Reason: Worsening of condition. Follow up: Private Physician; When: 2 - 3 days; Reason: Recheck today's complaints, Continuance of care, Re-evaluation by your physician. Problem is new. Symptoms have improved. pm1
[2020-06-26 11:50] VITALS: TEMP 98.4; O2SAT 100
[2020-06-26 11:52] VITALS: BP 151/91
== END 2020-06-23 17:16 | disposition home or self-care (01) ==
LOC: ER 14:13
DX: R22.31 Localized swelling, mass and lump, right upper limb (principal); I10 Essential (primary) hypertension; Z79.01 Long term (current) use of anticoagulants; Z86.718 Personal history of other venous thrombosis and embolism
CPT/HCPCS: 93971; 99283

== ENCOUNTER 2020-07-23 11:23 | Emergency (ER) | payer SELFPAY ==
--- NOTE | 2020-07-23 13:06 | RAD REPORT ---
EXAM DESCRIPTION: US - UPPER EXTREMITY VENOUS UNILATE - 07/23/2020 12:57 pm CLINICAL HISTORY: buring in palm and forearm Right arm pain COMPARISON: Extremity Venous Uni Ltd dated 06/23/2020 FINDINGS: Right upper extremity venous system was interrogated with Doppler technique. Normal flow, compressibility and augmentation was noted. There is no DVT present. IMPRESSION: No evidence of right upper extremity deep venous thrombosis.
--- NOTE | 2020-07-23 13:50 | ER ---
Nurse's Notes [facility] Name: Vickey Salamanca Age: 40 yrs Sex: Female : 1980 Arrival Date: 07/23/2020 Time: 11:25 Bed 5 Private MD: Luiza Cortes Diagnosis: Peripheral Neuropathy Presentation: 07/23 11:32 Chief complaint: Patient states: Reports right arm swelling/burning pain to palm for 2 ll1 days. History of blood clot in May. Sent. by Dr. Armida Cortes for eval. Coronavirus screen: Client denies travel out of the [place] in the last 14 days. At this time, the client does not indicate any symptoms associated with coronavirus-19. Ebola Screen: Patient denies travel to an Ebola-affected area in the 21 days before illness onset. Initial Sepsis Screen: Does the patient meet any 2 criteria? No. Patient's initial sepsis screen is negative. Risk Assessment: Do you want to hurt yourself or someone else? Patient reports no desire to harm self or others. Onset of symptoms was July 22, 2020. 11:32 Method Of Arrival: Ambulatory ll1 11:32 Acuity: KESHA 3 ll1 Historical: - Allergies: 11:34 No Known Drug Allergies; ll1 - PMHx: 11:34 Hypertension; ll1 - PSHx: 11:34 Tubal ligation; ll1 - Immunization history:: Flu vaccine is not up to date. - Social history:: Smoking status: Patient denies any tobacco usage or history of. Screenin:33 Abuse screen: Denies threats or abuse. Nutritional screening: No deficits noted. em Tuberculosis screening: No symptoms or risk factors identified. Fall Risk None identified. Assessment: 11:30 General: Appears in no apparent distress. comfortable, Behavior is calm, cooperative, em appropriate for age, Denies fever. Pain: Denies pain. Neuro: Level of Consciousness is awake, alert, obeys commands, Oriented to person, place, time, situation, Appropriate for age. Cardiovascular: Capillary refill < 3 seconds Patient's skin is warm and dry. Rhythm is regular. Respiratory: Airway is patent Respiratory effort is even, unlabored, Respiratory pattern is regular, symmetrical. Derm: Skin is intact, is healthy with good turgor, Skin is pink, warm \T\ dry. Musculoskeletal: Capillary refill < 3 seconds, Range of motion: intact in all extremities, Reports swelling in right arm for 2 days, reports burning sensation in the right hand. Vital Signs: 11:32 BP 161 / 109; Pulse 78; Resp 18; Temp 98.4; Pulse Ox 98% ; Pain 3/10; ll1 12:00 BP 139 / 93; Pulse 67; Resp 18; Pulse Ox 98% ; sv ED Course: 11:25 Patient arrived in ED. mr 11:26 Luiza Cortes is Private Physician. mr 11:26 Amish Phillips, RN is Primary Nurse. em 11:28 Akash Rivera MD is Attending Physician. kdr 11:33 Triage completed. ll1 11:33 Arm band placed on Patient placed in an exam room, on a stretcher. ll1 11:33 Patient has correct armband on for positive identification. Bed in low position. Call em light in reach. Side rails up X2. Pulse ox on. NIBP on. 12:58 UPPER EXTREMITY VENOUS UNILATE In Process Unspecified. EDMS 13:48 Luiza Cortes is Referral Physician. kdr 13:48 Bijan Chavira MD is Referral Physician. kdr 14:05 No provider procedures requiring assistance completed. Patient did not have IV access ss during this emergency room visit. Administered Medications: No medications were administered Outcome: 13:49 Discharge ordered by . kdr 14:05 Discharged to home ambulatory. ss 14:05 Condition: good 14:05 Discharge instructions given to patient, Instructed on discharge instructions, follow up and referral plans. medication usage, Demonstrated understanding of instructions, follow-up care, medications, Prescriptions given X 1. 14:05 Patient left the ED. ss Signatures: Dispatcher [employer] EDTN Armida Barreto RN RN sv Rittger, Kevin, MD MD [facility] Amish Phillips, Deann Addison RN, RN RN ss Lewis, Lynsay, RN RN ll1 Corrections: (The following items were deleted from the chart) 12:08 12:06 In radiology for Extremity Venous Uni Ltd+US.RAD.BRZ. EDMS EDMS
--- NOTE | 2020-07-23 13:50 | EDPHYS ---
Physician Documentation [facility] Name: Vickey Salamanca Age: 40 yrs Sex: Female : 1980 Arrival Date: 07/23/2020 Time: 11:25 Bed 5 Private MD: Luiza Cortes ED Physician Akash Rivera HPI: 07/23 11:35 This 40 yrs old Black Female presents to ER via Ambulatory with complaints of possible kdr Blood Clot. 11:35 The patient or guardian complains of pain, that is acute, Burning in her palm and mild kdr pain the the medical aspect of the right forearm. The complaints affect the dorsal aspect of right forearm and right hand. Context: The problem was sustained at home, resulted from unknown cause, Concerned about possible recurrence of blood clot in right upper extremity. Onset: The symptoms/episode began/occurred gradually, 2 day(s) ago. Treatment prior to arrival includes: no previous treatment. Modifying factors: The symptoms are alleviated by nothing. the symptoms are aggravated by nothing. Associated signs and symptoms: The patient has no apparent associated signs or symptoms. Severity of symptoms: At their worst the symptoms were mild, in the emergency department the symptoms are unchanged. The patient has experienced a previous episode, In May, she was diagnose with a DVT in her right upper extremity. At that time, she had pain in her right shoulder but not in this particular area as today. Historical: - Allergies: 11:34 No Known Drug Allergies; ll1 - PMHx: 11:34 Hypertension; ll1 - PSHx: 11:34 Tubal ligation; ll1 - Immunization history:: Flu vaccine is not up to date. - Social history:: Smoking status: Patient denies any tobacco usage or history of. ROS: 11:35 Constitutional: Negative for fever, chills, and weight loss, Eyes: Negative for injury, kdr pain, redness, and discharge, ENT: Negative for injury, pain, and discharge, Neck: Negative for injury, pain, and swelling, Cardiovascular: Negative for chest pain, palpitations, and edema, Respiratory: Negative for shortness of breath, cough, wheezing, and pleuritic chest pain, Abdomen/GI: Negative for abdominal pain, nausea, vomiting, diarrhea, and constipation, Back: Negative for injury and pain, : Negative for injury, bleeding, discharge, and swelling, Skin: Negative for injury, rash, and discoloration, Neuro: Negative for headache, weakness, numbness, tingling, and seizure activity. Psych: Negative for depression, anxiety, suicide ideation, homicidal ideation, and hallucinations, Allergy/Immunology: Negative for hives, rash, and allergies, Endocrine: Negative for neck swelling, polydipsia, polyuria, polyphagia, and marked weight changes, Hematologic/Lymphatic: Negative for swollen nodes, abnormal bleeding, and unusual bruising. 14:19 MS/extremity: Positive for pain, of the dorsal aspect of right forearm and right hand. kdr Exam: 14:19 Constitutional: This is a well developed, well nourished patient who is awake, alert, kdr and in no acute distress. Head/Face: Normocephalic, atraumatic. Eyes: Pupils equal round and reactive to light, extra-ocular motions intact. Lids and lashes normal. Conjunctiva and sclera are non-icteric and not injected. Cornea within normal limits. Periorbital areas with no swelling, redness, or edema. Neck: Trachea midline, no thyromegaly or masses palpated, and no cervical lymphadenopathy. Supple, full range of motion without nuchal rigidity, or vertebral point tenderness. No Meningismus. Chest/axilla: Normal chest wall appearance and motion. Nontender with no deformity. No lesions are appreciated. Cardiovascular: Regular rate and rhythm with a normal S1 and S2. No gallops, murmurs, or rubs. Normal PMI, no JVD. No pulse deficits. Respiratory: Lungs have equal breath sounds bilaterally, clear to auscultation and percussion. No rales, rhonchi or wheezes noted. No increased work of breathing, no retractions or nasal flaring. Abdomen/GI: Soft, non-tender, with normal bowel sounds. No distension or tympany. No guarding or rebound. No evidence of tenderness throughout. Back: No spinal tenderness. No costovertebral tenderness. Full range of motion. Skin: Warm, dry with normal turgor. Normal color with no rashes, no lesions, and no evidence of cellulitis. MS/ Extremity: Pulses equal, no cyanosis. Neurovascular intact. Full, normal range of motion. Neuro: Awake and alert, GCS 15, oriented to person, place, time, and situation. Cranial nerves II-XII grossly intact. Motor strength 5/5 in all extremities. Sensory grossly intact. Cerebellar exam normal. Normal gait. Psych: Awake, alert, with orientation to person, place and time. Behavior, mood, and affect are within normal limits. Vital Signs: 11:32 BP 161 / 109; Pulse 78; Resp 18; Temp 98.4; Pulse Ox 98% ; Pain 3/10; ll1 12:00 BP 139 / 93; Pulse 67; Resp 18; Pulse Ox 98% ; sv MDM: 13:49 Patient medically screened. kdr 14:19 Data reviewed: vital signs, nurses notes, lab test result(s), radiologic studies. kdr Counseling: I had a detailed discussion with the patient and/or guardian regarding: the historical points, exam findings, and any diagnostic results supporting the discharge/admit diagnosis, radiology results, the need for outpatient follow up. 07/23 12:08 Order name: UPPER EXTREMITY VENOUS UNILATE; Complete Time: 13:37 EDMS Administered Medications: No medications were administered Disposition: 07/23/20 13:49 Discharged to Home. Impression: Peripheral Neuropathy. - Condition is Stable. - Discharge Instructions: Peripheral Neuropathy. - Prescriptions for Ibuprofen 800 mg Oral Tablet - take 1 tablet by ORAL route every 8 hours As needed take with food; 30 tablet. - Medication Reconciliation Form, Thank You Letter form. - Follow up: Luiza Cortes; When: 2 - 3 days; Reason: If symptoms return, Further diagnostic work-up, Recheck today's complaints, Continuance of care, Re-evaluation by your physician. Follow up: Bijan Chavira MD; When: 2 - 3 days; Reason: If symptoms return, Further diagnostic work-up, Recheck today's complaints, Continuance of care, Re-evaluation by your physician. - Problem is new. - Symptoms have improved. Signatures: Dispatcher [employer] EDLA Akash Rivera MD MD [facility] Deann Casanova RN RN ss Srikanth Le RN RN ll1 Corrections: (The following items were deleted from the chart) 12:08 11:35 Extremity Venous Uni Ltd+US.RAD.BRZ ordered. EDLA EDLA 14:05 13:49 07/23/2020 13:49 Discharged to Home. Impression: Peripheral Neuropathy. Condition ss is Stable. Forms are Medication Reconciliation Form, Thank You Letter, Antibiotic Education, Prescription Opioid Use. Follow up: Luiza Cortes; When: 2 - 3 days; Reason: If symptoms return, Further diagnostic work-up, Recheck today's complaints, Continuance of care, Re-evaluation by your physician. Follow up: Bijan Burgessnwell; When: 2 - 3 days; Reason: If symptoms return, Further diagnostic work-up, Recheck today's complaints, Continuance of care, Re-evaluation by your physician. Problem is new. Symptoms have improved. kdr 14:20 11:35 Constitutional: Negative for fever, chills, and weight loss, Eyes: Negative for kdr injury, pain, redness, and discharge, ENT: Negative for injury, pain, and discharge, Neck: Negative for injury, pain, and swelling, Cardiovascular: Negative for chest pain, palpitations, and edema, Respiratory: Negative for shortness of breath, cough, wheezing, and pleuritic chest pain, Abdomen/GI: Negative for abdominal pain, nausea, vomiting, diarrhea, and constipation, Back: Negative for injury and pain, : Negative for injury, bleeding, discharge, and swelling, Skin: Negative for injury, rash, and discoloration, Neuro: Negative for headache, weakness, numbness, tingling, and seizure activity. Psych: Negative for depression, anxiety, suicide ideation, homicidal ideation, and hallucinations, Allergy/Immunology: Negative for hives, rash, and allergies, Endocrine: Negative for neck swelling, polydipsia, polyuria, polyphagia, and marked weight changes, Hematologic/Lymphatic: Negative for swollen nodes, abnormal bleeding, and unusual bruising, kdr
[2020-07-23 14:10] VITALS: TEMP 98.4; O2SAT 98
[2020-07-23 14:11] VITALS: BP 139/93
== END 2020-07-23 14:05 | disposition home or self-care (01) ==
LOC: ER 11:23
DX: G62.9 Polyneuropathy, unspecified (principal); I10 Essential (primary) hypertension
CPT/HCPCS: 93971; 99283

== ENCOUNTER 2020-10-29 14:58 | Emergency (ER) | payer SELFPAY ==
--- NOTE | 2020-10-29 21:05 | RAD REPORT ---
EXAM DESCRIPTION: RAD - Shoulder Right 2 View - 10/29/2020 8:58 pm CLINICAL HISTORY: PAIN COMPARISON: Shoulder Right 2 View dated 06/10/2020 FINDINGS: Mild degenerative changes are noted. No acute fracture or dislocation seen.
--- NOTE | 2020-10-29 23:30 | ER ---
Nurse's Notes [facility] Name: Vickey Salamanca Age: 40 yrs Sex: Female : 1980 Arrival Date: 10/29/2020 Time: 15:01 Bed 26 Private MD: Diagnosis: Pain in right shoulder;Phlebitis and thrombophlebitis-Right Arm Presentation: 10/29 15:11 Chief complaint: Patient states: RUE arm pain for 1 day. Concerned of having another ll1 clot in that arm, had one 5 months ago. Taking eloquis as prescribed. Coronavirus screen: Client denies travel out of the [place] in the last 14 days. At this time, the client does not indicate any symptoms associated with coronavirus-19. Ebola Screen: Patient denies travel to an Ebola-affected area in the 21 days before illness onset. Initial Sepsis Screen: Does the patient meet any 2 criteria? HR > 90 bpm. No. Patient's initial sepsis screen is negative. Does the patient have a suspected source of infection? Yes: Bone or joint infection. Risk Assessment: Do you want to hurt yourself or someone else? Patient reports no desire to harm self or others. Onset of symptoms was October 29, 2020. 15:11 Method Of Arrival: Ambulatory ll1 15:11 Acuity: KESHA 3 ll1 Historical: - PMHx: 15:11 Hypertension; blood clot arm; ll1 - PSHx: 15:11 Tubal ligation; ll1 - Immunization history:: Flu vaccine is not up to date. - Social history:: Smoking status: Patient denies any tobacco usage or history of. Screenin:37 Abuse screen: Denies threats or abuse. Nutritional screening: No deficits noted. jv1 Tuberculosis screening: No symptoms or risk factors identified. Fall Risk None identified. Assessment: 20:29 Reassessment: provider in the room assessing the pt. jv1 20:29 General: Appears in no apparent distress. uncomfortable, well groomed, well developed, jv1 well nourished, Behavior is. Pain: Complains of pain in right forearm, right shoulder Pain radiates to right forearm, right shoulder Pain currently is 8 out of 10 on a pain scale. Quality of pain is described as aching, throbbing, Pain began 1 day ago. 20:34 Neuro: Level of Consciousness is awake, alert, obeys commands, Oriented to person, jv1 place, time, situation, Metal Loader are equal bilaterally Moves all extremities. Gait is steady, Speech is normal. Cardiovascular: Denies chest pain, Heart tones S1 S2 present Capillary refill < 3 seconds. Respiratory: Airway is patent Respiratory effort is even, unlabored, Respiratory pattern is regular, symmetrical, Breath sounds are clear bilaterally. GI: No signs and/or symptoms were reported involving the gastrointestinal system. Abdomen is round non-distended, Bowel sounds present X 4 quads. : No signs and/or symptoms were reported regarding the genitourinary system. EENT: No signs and/or symptoms were reported regarding the EENT system. Derm: Skin is intact, is healthy with good turgor. Musculoskeletal: No signs and/or symptoms reported regarding the musculoskeletal system. 21:17 Reassessment: Patient appears in no apparent distress at this time. No changes from jv1 previously documented assessment. Patient and/or family updated on plan of care and expected duration. Pain level reassessed. Patient is alert, oriented x 3, equal unlabored respirations, skin warm/dry/pink. 22:55 Reassessment: Patient appears in no apparent distress at this time. No changes from jv1 previously documented assessment. Patient and/or family updated on plan of care and expected duration. Pain level reassessed. Patient is alert, oriented x 3, equal unlabored respirations, skin warm/dry/pink. Vital Signs: 15:11 BP 151 / 102; Pulse 93; Resp 18; Temp 99.2; Pulse Ox 100% on R/A; Weight 97.98 kg; ll1 Height 5 ft. 7 in. (170.18 cm); Pain 7/10; 21:30 BP 142 / 96; Pulse 77; Resp 18; Temp 98.9; Pulse Ox 100% on R/A; Pain 6/10; jv1 22:30 BP 153 / 120; Pulse 87; Resp 18; Temp 98.8; Pulse Ox 100% on R/A; Pain 0/10; jv1 10/30 00:17 BP 155 / 90; Pulse 80; Resp 18; Temp 98.1; Pulse Ox 100% ; Pain 0/10; jv1 10/29 15:11 Body Mass Index 33.83 (97.98 kg, 170.18 cm) ll1 ED Course: 10/29 15:01 Patient arrived in ED. ds1 15:10 Arm band placed on. ll1 15:14 Triage completed. ll1 20:18 Royce Ham PA is PHCP. cp 20:18 Royce Dee MD is Attending Physician. cp 20:37 Patient has correct armband on for positive identification. Bed in low position. Call jv1 light in reach. Side rails up X 1. 20:59 XRAY Shoulder RIGHT 2 view In Process Unspecified. EDMS 21:54 UPPER EXTREMITY VENOUS UNILATE In Process Unspecified. EDMS 23:27 Troy Stevens MD is Referral Physician. cp 23:27 Shruthi Carreno MD is Referral Physician. cp 23:58 No provider procedures requiring assistance completed. Patient did not have IV access jv1 during this emergency room visit. Administered Medications: No medications were administered Outcome: 23:28 Discharge ordered by MD. cp 23:30 Discharged to home ambulatory. jv1 23:30 Condition: stable 23:30 Discharge instructions given to patient, Instructed on discharge instructions, follow up and referral plans. medication usage, Demonstrated understanding of instructions, follow-up care, medications, Prescriptions given X 1. 10/30 00:17 Patient left the ED. jv1 Signatures: Dispatcher [employer] EDLA Rhona Rojas ds1 Royce Ham PA PA cp Lashonda oTvar, RN RN jv1 Srikanth Le RN RN ll1 Corrections: (The following items were deleted from the chart) 10/29 20:36 20:29 Pain: Complains of pain in right forearm, right shoulder Pain radiates to right jv1 forearm, right shoulder Pain currently is 8 out of 10 on a pain scale. Quality of pain is described as aching, throbbing, jv1
--- NOTE | 2020-10-29 23:30 | EDPHYS ---
Physician Documentation [facility] Name: Vickey Salamanca Age: 40 yrs Sex: Female : 1980 Arrival Date: 10/29/2020 Time: 15:01 Bed 26 Private MD: ODILON Physician Royce Dee HPI: 10/29 20:30 This 40 yrs old Black Female presents to ER via Ambulatory with complaints of Arm Pain. cp 20:30 The patient or guardian complains of pain. The complaints affect the right shoulder and cp right forearm. Context: resulted from unknown cause. Onset: The symptoms/episode began/occurred today. Treatment prior to arrival includes: no previous treatment. 20:30 Associated signs and symptoms: Pertinent negatives: decreased range of motion, fever, cp injury, shortness of breath. Patient reports being diagnosed with DVT of right arm 5 months ago. Currently taking eliquis. Historical: - PMHx: 15:11 Hypertension; blood clot arm; ll1 - PSHx: 15:11 Tubal ligation; ll1 - Immunization history:: Flu vaccine is not up to date. - Social history:: Smoking status: Patient denies any tobacco usage or history of. ROS: 20:35 MS/extremity: Positive for pain, of the right shoulder and right forearm, Negative for cp injury or acute deformity, decreased range of motion, paresthesias. 20:35 Eyes: Negative for injury, pain, redness, and discharge. cp 20:35 Constitutional: Negative for body aches, chills, fever, poor PO intake. 20:35 Cardiovascular: Negative for chest pain, edema, palpitations. 20:35 Respiratory: Negative for cough, shortness of breath, wheezing. 20:35 Skin: Negative for rash. cp 20:35 Neuro: Negative for altered mental status, numbness, syncope, weakness. 20:35 All other systems are negative. Exam: 20:45 Constitutional: The patient appears in no acute distress, alert, awake, cp non-diaphoretic, non-toxic, well developed, well nourished. 20:45 Head/Face: Normocephalic, atraumatic. cp 20:45 Eyes: Periorbital structures: appear normal, Conjunctiva: normal, no exudate, no injection, Lids and lashes: appear normal, bilaterally. 20:45 ENT: External ear(s): are unremarkable, Nose: is normal, Posterior pharynx: Airway: no evidence of obstruction, patent. 20:45 Neck: ROM/movement: is normal, is supple, without pain, no range of motions limitations. 20:45 Chest/axilla: Inspection: normal. 20:45 Cardiovascular: Rate: normal, Rhythm: regular, Heart sounds: murmur, not appreciated, JVD: is not appreciated. 20:45 Respiratory: the patient does not display signs of respiratory distress, Respirations: normal, no use of accessory muscles, no retractions, labored breathing, is not present. 20:45 Abdomen/GI: Inspection: abdomen appears normal. 20:45 Musculoskeletal/extremity: Extremities: noted in the right forearm: tenderness, There is no evidence of gross swelling, erythema, ecchymosis, Pulses: noted to be 2+ in the right radial artery, Joints: All joints are normal except the right shoulder displays mild pain with lateral tenderness to palpation and active ROM, no ROM restriction. 20:45 Skin: cellulitis, is not appreciated, no rash present. Vital Signs: 15:11 BP 151 / 102; Pulse 93; Resp 18; Temp 99.2; Pulse Ox 100% on R/A; Weight 97.98 kg; ll1 Height 5 ft. 7 in. (170.18 cm); Pain 7/10; 21:30 BP 142 / 96; Pulse 77; Resp 18; Temp 98.9; Pulse Ox 100% on R/A; Pain 6/10; jv1 22:30 BP 153 / 120; Pulse 87; Resp 18; Temp 98.8; Pulse Ox 100% on R/A; Pain 0/10; jv1 10/30 00:17 BP 155 / 90; Pulse 80; Resp 18; Temp 98.1; Pulse Ox 100% ; Pain 0/10; jv1 10/29 15:11 Body Mass Index 33.83 (97.98 kg, 170.18 cm) ll1 MDM: 10/29 20:20 Patient medically screened. stu 22:00 Differential diagnosis: tendonitis, DVT, phlebitis, cellulitis. cp 23:27 Data reviewed: vital signs, nurses notes, radiologic studies, plain films, ultrasound, cp and as a result, I will discharge patient. 23:27 Counseling: I had a detailed discussion with the patient and/or guardian regarding: the cp historical points, exam findings, and any diagnostic results supporting the discharge/admit diagnosis, radiology results, the need for outpatient follow up, a orthopedic surgeon, Hematology, to return to the emergency department if symptoms worsen or persist or if there are any questions or concerns that arise at home. 23:27 ED course: VSS. US negative for DVT. Xrays of right shoulder negative for acute cp findings. Will discharge to home for continued monitoring. 10/29 20:25 Order name: XRAY Shoulder RIGHT 2 view cp 10/29 21:51 Order name: UPPER EXTREMITY VENOUS UNILATE [facility] Administered Medications: No medications were administered Disposition: 10/30 05:40 Co-signature as Attending Physician, Royce Dee MD I agree with the assessment and [facility] plan of care. Disposition: 10/29/20 23:28 Discharged to Home. Impression: Pain in right shoulder, Phlebitis and thrombophlebitis - Right Arm. - Condition is Stable. - Discharge Instructions: Phlebitis, Shoulder Pain, Shoulder Range of Motion Exercises, Heat Therapy. - Prescriptions for Naprosyn 500 mg Oral Tablet - take 1 tablet by ORAL route 2 times per day take with food; 30 tablet. - Medication Reconciliation Form, Thank You Letter, Antibiotic Education, Prescription Opioid Use form. - Follow up: Troy Stevens MD; When: 2 - 3 days; Reason: shoulder pain. Follow up: Shruthi Carreno MD; When: 2 - 3 days. - Problem is new. - Symptoms have improved. Signatures: Dispatcher [employer] [facility] Royce Dee MD MD cha Page, Corey, PA PA cp Lashonda Tovar RN RN jv1 Srikanth Le RN RN ll1 Corrections: (The following items were deleted from the chart) 10/29 21:51 20:26 Extremity Venous Uni Ltd+US.RAD.BRZ ordered. [facility] 10/30 00:17 10/29 23:28 10/29/2020 23:28 Discharged to Home. Impression: Pain in right shoulder; jv1 Phlebitis and thrombophlebitis - Right Arm. Condition is Stable. Forms are Medication Reconciliation Form, Thank You Letter, Antibiotic Education, Prescription Opioid Use. Follow up: Troy Stevens; When: 2 - 3 days; Reason: shoulder pain. Follow up: Shruthi Vargas; When: 2 - 3 days. Problem is new. Symptoms have improved. cp
[2020-10-30 00:32] VITALS: O2SAT 100
[2020-10-30 00:37] VITALS: BP 155/90; TEMP 98.1
--- NOTE | 2020-10-30 20:19 | RAD REPORT ---
EXAM DESCRIPTION: UPPER EXTREMITY VENOUS UNILATE CLINICAL HISTORY: 40 years, Female, PAIN UPPER EXTREMITY VENOUS UNILATE COMPARISON: None. FINDINGS: Duplex imaging of the deep venous system of right upper extremity was performed with visua lization of the internal jugular, subclavian, axillary, brachial, cephalic, basilic, forearm veins. T here is normal compressibility, augmentation and flow with no visualized thrombus. Thrombus in the superficial vein at the antecubital fossa. No focal fluid collection is identified. IMPRESSION: No right upper extremity DVT. Superficial vein thrombus at the antecubital fossa. Correlate for thrombophlebitis. Electronically signed by: Salvador Muro DO 10/29/2020 11:08 PM ECOLOGY PROFESSOR Due to temporary technical issues with the PACS/Fluency reporting system, reports are being signed by the in house radiologists without review as a courtesy to insure prompt reporting. The interpreting radiologist is fully responsible for the content of the report.
== END 2020-10-30 00:17 | disposition home or self-care (01) ==
LOC: ER 14:58
DX: I80.8 Phlebitis and thrombophlebitis of other sites (principal); I10 Essential (primary) hypertension; Z86.718 Personal history of other venous thrombosis and embolism; Z79.01 Long term (current) use of anticoagulants
CPT/HCPCS: 93971; 99283

== ENCOUNTER 2021-12-05 11:25 | Emergency (ER) | payer SELFPAY ==
[2021-12-05 12:33] LABS: Absolute Lymphocytes (CBC) 2.7 K/uL (0.7-4.9); Hematocrit 41.4 % (36.0-45.0); Lymphocytes % 32.1 % (15.3-44.8); MPV 8.3 fL (7.6-11.3); RBC Red Blood Cell Count 5.13 M/uL (3.86-4.86)
[2021-12-05 12:58] LABS: BUN Blood Urea Nitrogen 11 mg/dL (7-18); Bicarbonate 26 mmol/L (21-32); Glucose Level 110 mg/dL (74-106); Potassium 3.7 mmol/L (3.5-5.1); Sodium Level 137 mmol/L (136-145)
--- NOTE | 2021-12-05 13:24 | ER ---
Nurse's Notes [facility] Name: Vickey Salamanca Age: 41 yrs Sex: Female : 1980 Arrival Date: 12/05/2021 Time: 11:27 Bed 14 Private MD: Diagnosis: Hypertensive heart disease without heart failure Presentation: 12/05 11:46 Chief complaint: Patient states: High blood pressure x 3 days, reports visual ph disturbances and dizziness, denies headache or chest pain. Currently takes metoprolol, amlodipine, and losartan. Coronavirus screen: At this time, the client does not indicate any symptoms associated with coronavirus-19. Ebola Screen: No symptoms or risks identified at this time. Initial Sepsis Screen: Does the patient meet any 2 criteria? No. Patient's initial sepsis screen is negative. Does the patient have a suspected source of infection? No. Patient's initial sepsis screen is negative. Risk Assessment: Do you want to hurt yourself or someone else? Patient reports no desire to harm self or others. Onset of symptoms was December 05, 2021. 11:46 Method Of Arrival: Ambulatory ph 11:46 Acuity: KESHA 3 ph Historical: - Allergies: 11:49 No Known Allergies; ph - Home Meds: 11:49 amlodipine 10 mg tab 1 tab once daily [Active]; Eliquis 5 mg Oral tab 2 times per day ph [Active]; Hydrochlorothiazide Oral [Active]; losartan 100 mg Oral tab 1 tab once daily [Active]; 12:34 metoprolol tartrate 50 mg oral tab 1 tab 2 times per day [Active]; ic1 - PMHx: 11:49 blood clot arm; Hypertension; ph - Immunization history:: Client reports having NOT received the Covid vaccine. - Social history:: Smoking status: Patient denies any tobacco usage or history of. Screenin:00 Abuse screen: Denies threats or abuse. Denies injuries from another. Nutritional ic1 screening: No deficits noted. Tuberculosis screening: No symptoms or risk factors identified. Fall Risk None identified. Assessment: 12:00 General: Appears in no apparent distress. comfortable, Behavior is calm, cooperative. ic1 Pain: Denies pain. Neuro: Level of Consciousness is awake, alert, obeys commands, Oriented to person, place, time, situation. Cardiovascular: No deficits noted. Respiratory: No deficits noted. GI: No deficits noted. : No deficits noted. EENT: Reports states she thinks she may be seeing floaters x 3 days since having high bp that she can't get down. . Derm: No deficits noted. Musculoskeletal: No deficits noted. Vital Signs: 11:46 BP 183 / 110; Pulse 72; Resp 18; Temp 97.2; Pulse Ox 100% on R/A; Weight 97.98 kg; ph Height 5 ft. 7 in. (170.18 cm); 12:00 BP 158 / 101; Pulse 65; Resp 16; Pulse Ox 98% on R/A; ic1 13:04 BP 130 / 91; Pulse 69; Resp 18; Pulse Ox 100% on R/A; ic1 13:24 BP 137 / 89; Pulse 71; Resp 16; Pulse Ox 100% ; ic1 11:46 Body Mass Index 33.83 (97.98 kg, 170.18 cm) ph ED Course: 11:27 Patient arrived in ED. mr 11:40 Akash Rivera MD is Attending Physician. kdr 11:49 Triage completed. ph 11:49 Arm band placed on Patient placed in an exam room. ph 12:00 Patient has correct armband on for positive identification. Bed in low position. Call ic1 light in reach. Side rails up X2. 12:00 No provider procedures requiring assistance completed. ic1 13:04 Eva Rivera, DEEPA is Primary Nurse. ic1 13:25 IV discontinued, intact, bleeding controlled, No redness/swelling at site. Pressure ic1 dressing applied. Administered Medications: No medications were administered Outcome: 13:24 Discharge ordered by . kdr 13:25 Discharged to home ambulatory. ic1 13:25 Condition: stable 13:25 Discharge instructions given to patient, Instructed on discharge instructions, follow up and referral plans. Demonstrated understanding of instructions, follow-up care. 14:10 Patient left the ED. ic1 Signatures: Akash Rivera MD MD [facility] Sonya Renee mr IyerKamilla RN RN Eva Rivera RN RN ic1 Corrections: (The following items were deleted from the chart) 12:35 11:49 Home Meds: Metoprolol Tartrate 12.5mg Oral once daily; ph ic1
--- NOTE | 2021-12-05 13:24 | EDPHYS ---
Physician Documentation [facility] Name: Vickey Salamanca Age: 41 yrs Sex: Female : 1980 Arrival Date: 12/05/2021 Time: 11:27 Bed 14 Private MD: ED Physician Akash Rivera HPI: 12/05 14:20 This 41 yrs old Black Female presents to ER via Ambulatory with complaints of High kdr Blood Pressure, Vision Problem. 14:20 The patient has elevated blood pressure and discovered this at home. Onset: The kdr symptoms/episode began/occurred Patient's had intermittent hypertension for the past several days. She is currently on 3 different medications for her blood pressure control including metoprolol, losartan and amlodipine. Her physician recently increased her metoprolol dosing. For the last few days she has noted that her blood pressures been up. She does tend to take her blood pressure on a recurrent infrequent basis. She indicated that she has had some blurry vision from time to time but that is transient. She denies chest pain shortness of breath or headache. Modifying factors: The symptoms are aggravated by The symptoms are alleviated by Nothing, relaxation. Associated signs and symptoms: Pertinent positives: visual changes, Pertinent negatives: chest pain, dizziness, dyspnea, headache, lightheadedness, nausea, vomiting, weakness. Severity of symptoms: At its worst the blood pressure was mild, in the emergency department the blood pressure is unchanged. The patient has not experienced similar symptoms in the past. The patient has not recently seen a physician. Historical: - Allergies: 11:49 No Known Allergies; ph - Home Meds: 11:49 amlodipine 10 mg tab 1 tab once daily [Active]; Eliquis 5 mg Oral tab 2 times per day ph [Active]; Hydrochlorothiazide Oral [Active]; losartan 100 mg Oral tab 1 tab once daily [Active]; 12:34 metoprolol tartrate 50 mg oral tab 1 tab 2 times per day [Active]; ic1 - PMHx: 11:49 blood clot arm; Hypertension; ph - Immunization history:: Client reports having NOT received the Covid vaccine. - Social history:: Smoking status: Patient denies any tobacco usage or history of. ROS: 14:20 Constitutional: Negative for fever, chills, and weight loss, ENT: Negative for injury, kdr pain, and discharge, Neck: Negative for injury, pain, and swelling, Cardiovascular: Negative for chest pain, palpitations, and edema, Respiratory: Negative for shortness of breath, cough, wheezing, and pleuritic chest pain, Abdomen/GI: Negative for abdominal pain, nausea, vomiting, diarrhea, and constipation, Back: Negative for injury and pain, : Negative for injury, bleeding, discharge, and swelling, MS/Extremity: Negative for injury and deformity, Skin: Negative for injury, rash, and discoloration, Neuro: Negative for headache, weakness, numbness, tingling, and seizure activity. Psych: Negative for depression, anxiety, suicide ideation, homicidal ideation, and hallucinations, Allergy/Immunology: Negative for hives, rash, and allergies, Endocrine: Negative for neck swelling, polydipsia, polyuria, polyphagia, and marked weight changes, Hematologic/Lymphatic: Negative for swollen nodes, abnormal bleeding, and unusual bruising. 14:20 Eyes: Positive for visual disturbance. Exam: 14:20 Constitutional: This is a well developed, well nourished patient who is awake, alert, kdr and in no acute distress. Head/Face: Normocephalic, atraumatic. Eyes: Pupils equal round and reactive to light, extra-ocular motions intact. Lids and lashes normal. Conjunctiva and sclera are non-icteric and not injected. Cornea within normal limits. Periorbital areas with no swelling, redness, or edema. Neck: Trachea midline, no thyromegaly or masses palpated, and no cervical lymphadenopathy. Supple, full range of motion without nuchal rigidity, or vertebral point tenderness. No Meningismus. Chest/axilla: Normal chest wall appearance and motion. Nontender with no deformity. No lesions are appreciated. Cardiovascular: Regular rate and rhythm with a normal S1 and S2. No gallops, murmurs, or rubs. Normal PMI, no JVD. No pulse deficits. Respiratory: Lungs have equal breath sounds bilaterally, clear to auscultation and percussion. No rales, rhonchi or wheezes noted. No increased work of breathing, no retractions or nasal flaring. Abdomen/GI: Soft, non-tender, with normal bowel sounds. No distension or tympany. No guarding or rebound. No evidence of tenderness throughout. Back: No spinal tenderness. No costovertebral tenderness. Full range of motion. Skin: Warm, dry with normal turgor. Normal color with no rashes, no lesions, and no evidence of cellulitis. MS/ Extremity: Pulses equal, no cyanosis. Neurovascular intact. Full, normal range of motion. Neuro: Awake and alert, GCS 15, oriented to person, place, time, and situation. Cranial nerves II-XII grossly intact. Motor strength 5/5 in all extremities. Sensory grossly intact. Cerebellar exam normal. Normal gait. Psych: Awake, alert, with orientation to person, place and time. Behavior, mood, and affect are within normal limits. Vital Signs: 11:46 BP 183 / 110; Pulse 72; Resp 18; Temp 97.2; Pulse Ox 100% on R/A; Weight 97.98 kg; ph Height 5 ft. 7 in. (170.18 cm); 12:00 BP 158 / 101; Pulse 65; Resp 16; Pulse Ox 98% on R/A; ic1 13:04 BP 130 / 91; Pulse 69; Resp 18; Pulse Ox 100% on R/A; ic1 13:24 BP 137 / 89; Pulse 71; Resp 16; Pulse Ox 100% ; ic1 11:46 Body Mass Index 33.83 (97.98 kg, 170.18 cm) ph MDM: 13:24 Patient medically screened. kdr 14:20 Data reviewed: vital signs, nurses notes, lab test result(s), radiologic studies. kdr Counseling: I had a detailed discussion with the patient and/or guardian regarding: the historical points, exam findings, and any diagnostic results supporting the discharge/admit diagnosis, lab results, radiology results, the need for outpatient follow up. 12/05 12:08 Order name: CBC with Diff kdr 12/05 12:08 Order name: Chem 7 kdr 12/05 12:09 Order name: CBC with Automated Diff; Complete Time: 13:13 EDMS 12/05 12:09 Order name: Basic Metabolic Panel; Complete Time: 13:13 EDMS Administered Medications: No medications were administered Disposition Summary: 12/05/21 13:24 Discharge Ordered Location: Home kdr Problem: an acute exacerbation kdr Symptoms: have improved kdr Condition: Stable kdr Diagnosis - Hypertensive heart disease without heart failure kdr Followup: kdr - With: Private Physician - When: 2 - 3 days - Reason: If symptoms return, Further diagnostic work-up, Recheck today's complaints, Continuance of care, Re-evaluation by your physician Discharge Instructions: - Discharge Summary Sheet kdr - Hypertension, Adult, [id number] kdr Forms: - Medication Reconciliation Form kdr - Thank You Letter kdr Signatures: Dispatcher [employer] Akash Zheng MD MD kdr Hall, Patricia, RN RN Eva Rivera RN RN ic1 Corrections: (The following items were deleted from the chart) 12:35 11:49 Home Meds: Metoprolol Tartrate 12.5mg Oral once daily; ph ic1
[2021-12-05 14:14] VITALS: TEMP 97.2
[2021-12-05 14:16] VITALS: O2SAT 100
[2021-12-05 14:18] VITALS: BP 137/89
== END 2021-12-05 14:10 | disposition home or self-care (01) ==
LOC: ER 11:25
DX: I11.9 Hypertensive heart disease without heart failure (principal); I10 Essential (primary) hypertension; Z79.01 Long term (current) use of anticoagulants
CPT/HCPCS: 36415; 80048; 85025; 99281

== ENCOUNTER 2023-07-26 06:29 | Emergency (ER) | payer OTHER ==
--- OUTSIDE RECORDS SUMMARY | 2023-07-26 06:35 | XMS REPORT | Continuity of Care Document ---
:1980 Author Organization [facility] t Address [address] [facility] [address] [place] [address] Care Team Providers Name Role Phone Zeny Edwards Primary Care Physician [phone] Problems This patient has no known problems. Allergies, Adverse Reactions, Alerts This patient has no known allergies or adverse reactions. Medications Ordered Filled Start Stop Current Ordering Indication Dosage Frequency Signature Comments Components Source Medication Medication Date Date Medication? Clinician (SIG) Name Name metoprolol 2021-0 No 1mg succinate 7-21 ER 100 mg 00:00: tablet,exte 00 nded release 24 hr metoprolol 2-0 No 1mg succinate 4-14 ER 100 mg 00:00: tablet,exte 00 nded release 24 hr amlodipine 2-0 No 1mg 10 mg 4-14 tablet 00:00: 00 losartan 2-0 No 1mg 100 mg 4-14 tablet 00:00: 00 hydrochloro 2-0 No 1mg thiazide 4-14 12.5 mg 00:00: tablet 00 metoprolol 2-0 No 1mg succinate 3-15 ER 100 mg 00:00: tablet,exte 00 nded release 24 hr Dose 2-0 No Unknown 3-15 00:00: 00 Dose 2-0 No Unknown 3-15 00:00: 00 Dose 2-0 No Unknown 3-15 00:00: 00 Dose 2-0 No Unknown 3-15 00:00: 00 Dose 2-0 No Unknown 3-15 00:00: 00 Dose 2-0 No Unknown 2-14 00:00: 00 Dose 2-0 No Unknown 1-21 00:00: 00 Dose 2-0 No Unknown 1-21 00:00: 00 Eliquis 5 2-0 No 1mg mg tablet 1-21 00:00: 00 metoprolol 2022-0 No 1mg tartrate 50 1-21 mg tablet 00:00: 00 metoprolol 2022-0 No 1mg tartrate 50 1-21 mg tablet 00:00: 00 Eliquis 5 2-0 No 1mg mg tablet 1-20 00:00: 00 Eliquis 5 2020-1 No 1mg mg tablet 2-08 00:00: 00 Eliquis 5 2020-1 No 1mg mg tablet 1-03 00:00: 00 metronidazo 2020-1 No 1mg le 500 mg 0-14 tablet 00:00: 00 amlodipine 2020-1 No 1mg 10 mg 0-12 tablet 00:00: 00 losartan 2020-1 No 1mg 100 mg 0-12 tablet 00:00: 00 metoprolol 2020-1 No 1mg succinate 0-12 ER 25 mg 00:00: tablet,exte 00 nded release 24 hr Eliquis 5 2020-0 No 1mg mg tablet 9-29 00:00: 00 Eliquis 5 2020-0 No 1mg mg tablet 8-30 00:00: 00 Eliquis 5 2020-0 No 1mg mg tablet 5-24 00:00: 00 losartan 1-0 No 1mg 100 mg 5-11 tablet 00:00: 00 amlodipine 1-0 No 1mg 10 mg 5-11 tablet 00:00: 00 metoprolol 1-0 No 1mg succinate 5-11 ER 25 mg 00:00: tablet,exte 00 nded release 24 hr Eliquis 5 2020-0 No 1mg mg tablet 4-19 00:00: 00 metoprolol 1-0 No 1mg succinate 3-17 ER 100 mg 00:00: tablet,exte 00 nded release 24 hr Eliquis 5 2020-0 No 1mg mg tablet 2-12 00:00: 00 losartan 2019-1 No 1mg 100 mg 2-03 tablet 00:00: 00 amlodipine 2019-1 No 1mg 10 mg 2-03 tablet 00:00: 00 Eliquis 5 2019-1 No 1mg mg tablet 2-03 00:00: 00 metoprolol 2020-1 No 1mg succinate 2-03 ER 25 mg 00:00: tablet,exte 00 nded release 24 hr Eliquis 5 2020-1 No 1mg mg tablet 1-02 00:00: 00 losartan 2020-0 No 1mg 100 mg 9-23 tablet 00:00: 00 amlodipine 2020-0 No 1mg 10 mg 9-23 tablet 00:00: 00 metoprolol 2020-0 No 1mg succinate 9-23 ER 25 mg 00:00: tablet,exte 00 nded release 24 hr omeprazole 2020-0 No 1mg 20 mg 9-23 capsule,del 00:00: ayed 00 release metoprolol 2020-0 No 1mg succinate 9-08 ER 25 mg 00:00: tablet,exte 00 nded release 24 hr Eliquis 5 2020-0 No 1mg mg tablet 8 00:00: 00 Eliquis 5 2020-0 No 1mg mg tablet 8 00:00: 00 metoprolol 2020-0 No 5mg succinate 8-24 ER 25 mg 00:00: tablet,exte 00 nded release 24 hr clonidine 2020-0 No 1mg HCl 0.1 mg 8-05 tablet 00:00: 00 diclofenac 2020-0 No 1% 3 % topical 7-16 gel 00:00: 00 losartan 2020-0 No 1mg 100 mg 7-16 tablet 00:00: 00 amlodipine 2020-0 No 1mg 10 mg 7-16 tablet 00:00: 00 chlorthalid 2020-0 No 1mg one 25 mg 7-16 tablet 00:00: 00 naproxen 2020-0 No 1mg 500 mg 7-16 tablet,rishi 00:00: yed release 00 losartan 2020-0 No 1mg 100 mg 7-08 tablet 00:00: 00 metoprolol 2020-0 No 1mg succinate 4-15 ER 50 mg 00:00: tablet,exte 00 nded release 24 hr hydrochloro 2020-0 No 1mg thiazide 4-15 12.5 mg 00:00: tablet 00 metformin 2020-0 No 1mg ER 500 mg 1-08 tablet,exte 00:00: nded 00 release 24 hr atorvastati 2020-0 No 1mg n 20 mg 1-08 tablet 00:00: 00 losartan 2020-0 No 1mg 100 mg 1-04 tablet 00:00: 00 amlodipine 2020-0 No 1mg 10 mg 1-04 tablet 00:00: 00 losartan 2018-1 No 1mg 100 mg 2-30 tablet 00:00: 00 amlodipine 2018-1 No 1mg 10 mg 2-30 tablet 00:00: 00 clonidine 2018-1 No 1mg HCl 0.1 mg 2-30 tablet 00:00: 00 amlodipine 2018-1 No 1mg 10 mg 1-26 tablet 00:00: 00 amlodipine 2018-1 No 1mg 10 mg 0-24 tablet 00:00: 00 amlodipine 2019-0 No 1mg 10 mg 9-13 tablet 00:00: 00 clonidine 2018-0 No 1mg HCl 0.1 mg 9-13 tablet 00:00: 00 amlodipine 2018-0 No 1mg 10 mg 8-14 tablet 00:00: 00 amlodipine 2018-0 No 1mg 10 mg 5-07 tablet 00:00: 00 metoprolol 2019-0 No 1mg tartrate 25 2-19 mg tablet 00:00: 00 hydrochloro 2019-0 No 1mg thiazide 1-29 12.5 mg 00:00: tablet 00 amlodipine 2018-0 No 1mg 10 mg 1-29 tablet 00:00: 00 hydrochloro 2018-0 No 1mg thiazide 1-29 12.5 mg 00:00: tablet 00 amlodipine 2018-0 No 1mg 10 mg 1-17 tablet 00:00: 00 amlodipine 2017-1 No 1mg 10 mg 0-26 tablet 00:00: 00 amlodipine 2017-1 No 1mg 10 mg 0-26 tablet 00:00: 00 furosemide 2018-1 No 1mg 20 mg 0-26 tablet 00:00: 00 Vital Signs Vital Name Observation Time Observation Value Comments Source BP Systolic 2022-06-12 14:45:00 143 mm[Hg] BP Diastolic 2022-06-12 14:45:00 93 mm[Hg] Weight Measured 2022-06-12 14:45:00 202.60 pounds Height Measured 2022-06-12 14:45:00 64.29 inches Body Temperature 2022-06-12 14:45:00 98.40 degrees Heart Rate 2022-06-12 14:45:00 98.00 /min Respiratory Rate 2022-06-12 14:45:00 18.00 /min BP Systolic 2022-02-04 15:41:00 156 mm[Hg] BP Diastolic 2022-02-04 15:41:00 98 mm[Hg] Weight Measured 2022-02-04 15:41:00 206.20 pounds Height Measured 2022-02-04 15:41:00 64.29 inches Body Temperature 2022-02-04 15:41:00 98.40 degrees Heart Rate 2022-02-04 15:41:00 81.00 /min Respiratory Rate 2022-02-04 15:41:00 BP Systolic 2021-12-07 15:28:00 174 mm[Hg] BP Diastolic 2021-12-07 15:28:00 117 mm[Hg] Weight Measured 2021-12-07 15:28:00 210.60 pounds Height Measured 2021-12-07 15:28:00 64.29 inches Body Temperature 2021-12-07 15:28:00 98.10 degrees Heart Rate 2021-12-07 15:28:00 85.00 /min Respiratory Rate 2021-12-07 15:28:00 16.00 /min BP Systolic 2021-11-13 11:43:00 155 mm[Hg] BP Diastolic 2021-11-13 11:43:00 104 mm[Hg] Weight Measured 2021-11-13 11:43:00 216.20 pounds Height Measured 2021-11-13 11:43:00 64.29 inches Body Temperature 2021-11-13 11:43:00 98.20 degrees Heart Rate 2021-11-13 11:43:00 108.00 /min Respiratory Rate 2021-11-13 11:43:00 BP Systolic 2021-08-04 09:27:00 131 mm[Hg] BP Diastolic 2021-08-04 09:27:00 89 mm[Hg] Weight Measured 2021-08-04 09:27:00 217.40 pounds Height Measured 2021-08-04 09:27:00 64.29 inches Body Temperature 2021-08-04 09:27:00 98.20 degrees Heart Rate 2021-08-04 09:27:00 97.00 /min Respiratory Rate 2021-08-04 09:27:00 BP Systolic 2021-03-03 09:25:00 137 mm[Hg] BP Diastolic 2021-03-03 09:25:00 82 mm[Hg] Weight Measured 2021-03-03 09:25:00 222.80 pounds Height Measured 2021-03-03 09:25:00 64.28 inches Body Temperature 2021-03-03 09:25:00 98.70 degrees Heart Rate 2021-03-03 09:25:00 96.00 /min Respiratory Rate 2021-03-03 09:25:00 25.00 /min BP Systolic 2021-01-07 09:03:00 150 mm[Hg] BP Diastolic 2021-01-07 09:03:00 95 mm[Hg] Weight Measured 2021-01-07 09:03:00 220.80 pounds Height Measured 2021-01-07 09:03:00 64.28 inches Body Temperature 2021-01-07 09:03:00 97.70 degrees Heart Rate 2021-01-07 09:03:00 102.00 /min Respiratory Rate 2021-01-07 09:03:00 16.00 /min BP Systolic 2020-09-25 14:16:00 146 mm[Hg] BP Diastolic 2020-09-25 14:16:00 96 mm[Hg] Weight Measured 2020-09-25 14:16:00 228.00 pounds Height Measured 2020-09-25 14:16:00 64.28 inches Body Temperature 2020-09-25 14:16:00 99.40 degrees Heart Rate 2020-09-25 14:16:00 102.00 /min Respiratory Rate 2020-09-25 14:16:00 18.00 /min BP Systolic 2020-07-23 10:53:00 144 mm[Hg] BP Diastolic 2020-07-23 10:53:00 97 mm[Hg] Weight Measured 2020-07-23 10:53:00 226.80 pounds Height Measured 2020-07-23 10:53:00 64.28 inches Body Temperature 2020-07-23 10:53:00 98.90 degrees Heart Rate 2020-07-23 10:53:00 74.00 /min Respiratory Rate 2020-07-23 10:53:00 17.00 /min BP Systolic 2020-07-16 10:48:00 143 mm[Hg] BP Diastolic 2020-07-16 10:48:00 91 mm[Hg] Weight Measured 2020-07-16 10:48:00 226.00 pounds Height Measured 2020-07-16 10:48:00 64.28 inches Body Temperature 2020-07-16 10:48:00 98.70 degrees Heart Rate 2020-07-16 10:48:00 77.00 /min Respiratory Rate 2020-07-16 10:48:00 17.00 /min Procedures This patient has no known procedures. Plan of Care Planned Activity Planned Date Details Comments Source Goal Plan of Care Note [code = 25948-8] Goal Plan of Care Note [code = 74469-6] Goal Plan of Care Note [code = 69054-6] Goal Plan of Care Note [code = 48928-0] Goal Plan of Care Note [code = 55290-5] Goal Plan of Care Note [code = 67129-3] Goal Plan of Care Note [code = 36570-2] Goal Plan of Care Note [code = 73560-7] Goal Plan of Care Note [code = 49333-7] Goal Plan of Care Note [code = 27921-7] Goal Plan of Care Note [code = 07727-2] Goal Plan of Care Note [code = 38888-9] Goal Plan of Care Note [code = 69466-5] Goal Plan of Care Note [code = 00188-7] Goal Plan of Care Note [code = 79338-0] Goal Plan of Care Note [code = 99431-1] Goal Plan of Care Note [code = 99980-4] Goal Plan of Care Note [code = 95554-1] Goal Plan of Care Note [code = 18236-8] Goal Plan of Care Note [code = 66282-2] Goal Plan of Care Note [code = 60017-3] Goal Plan of Care Note [code = 46366-8] Goal Plan of Care Note [code = 54515-1] Goal Plan of Care Note [code = 47552-4] Goal Plan of Care Note [code = 50345-7] Goal Plan of Care Note [code = 89494-3] Goal Plan of Care Note [code = 09271-6] Goal Plan of Care Note [code = 76749-5] Goal Plan of Care Note [code = 98666-8] Goal Plan of Care Note [code = 01713-8] Goal Plan of Care Note [code = 37906-4] Goal Plan of Care Note [code = 90169-5] Goal Plan of Care Note [code = 45059-1] Goal Plan of Care Note [code = 74058-3] Goal Plan of Care Note [code = 53582-4] Goal Plan of Care Note [code = 86656-9] Encounters Start End Encounter Admission Attending Care Care Encounter Source Date/Time Date/Time Type Type Clinicians Facility Department ID 2023-04-15 2023-04-15 Outpatient [facility] [id number] Floyd 13:15:27 13:15:27 0623 F Marv 2023-01-13 2023-01-13 Outpatient [facility] [id number] 023 Floyd 08:09:48 08:09:48 0323 F Marv 2022-06-12 2022-06-12 Outpatient [id number] 00:00:00 00:00:00 Visit [id number] Results Test Description Test Time Test Comments Results Result Comments Source COMPREHENSIVE METABOLIC PANEL 2023-04-16 05:47:47 Test Item Value Reference Range Interpretation Comme nts GLUCOSE (test code = 2217) 93 MG/DL 70-99 BUN (test code = 2208) 16 MG/DL 6-20 CREATININE (test code = 0.76 MG/DL 0.60-1.30 2213) eGFR (2020 CKD-EPI) (test 99 ML/MIN/1.73 >60 code = 84138) CALC BUN/CREAT (test code = 21 RATIO 6-28 2234) SODIUM (test code = 2231) 142 MEQ/L 133-146 POTASSIUM (test code = 2228) 4.2 MEQ/L 3.5-5.4 CHLORIDE (test code = 2215) 104 MEQ/L 95-107 CARBON DIOXIDE (test code = 28 MEQ/L -31 2205) CALCIUM (test code = 2209) 9.7 MG/DL 8.5-10.5 PROTEIN, TOTAL (test code = 7.3 G/DL 6.1-8.3 2228) ALBUMIN (test code = 2201) 4.5 G/DL 3.5-5.2 CALC GLOBULIN (test code = 2.8 G/DL 1.9-3.7 2239) CALC A/G RATIO (test code = 1.6 RATIO 1.0-2.6 2233) BILIRUBIN, TOTAL (test code 0.4 MG/DL See_Comment [Automated message] The = 2206) system which ge nerated this result transmit ruba reference range: <=1.2. T he reference range was not u sed to interpret this result as normal/abnormal . ALKALINE PHOSPHATASE (test 89 U/L 40-115 code = 2204) AST (test code = 2218) 15 U/L 9-40 ALT (test code = 2219) 18 U/L 5-40 LIPID [id number] 05:47:47 Test Item Value Reference Range Interpretation Comments CHOLESTEROL (test 198 MG/DL <200 code = 2210) TRIGLYCERIDES (test 102 MG/DL <150 code = 2232) HDL CHOLESTEROL (test 50 MG/DL >39 code = 2220) CALC LDL CHOL (test 128 MG/DL <100 H NOTE: C ALCULATED LDL code = 2237) IS BASED ON VALERIANO-CORNEJO METHOD WHICHINCLUDES ADJUSTABLE TRIGLYCERIDE:VL DL CHOLESTEROL RAT IO.THIS FACTOR VARIES B Y MEASURED TRIGLY CERIDE AND NON-HDLCHOL ESTEROL CONCENTRATIONS WITH INCREASED CALCU LATED LDL SEENIN HIGH ER TRIGLYCERIDE OR LOWER NON-HDL SPECIME NS. FOR MOREINFORMATION , SEE CLIENT ANNOUNCE MENT AT [email or web address] LDL/HDL 2.56 RATIO <3.22 UNLESS OTHERWISE (test code = 223) INDICATED , ALL TESTING [facility], [address] [address] KAREN LEYVA DIRECTOR: JESSICA ROBERTSON M.D. IA NUMBER [id number] CAP ACCREDITATION N O. [id number] LIPID [id number] 23:34:58 Test Item Value Reference Range Interpretation Comments CHOLESTEROL (test 211 MG/DL <200 H code = 2210) TRIGLYCERIDES (test 100 MG/DL <150 code = 2232) HDL CHOLESTEROL (test 46 MG/DL >39 code = 2220) CALC LDL CHOL (test 144 MG/DL <100 H NOTE: C ALCULATED LDL code = 2237) IS BASED ON VALERIANO-CORNEJO METHOD WHICHINCLUDES ADJUSTABLE TRIGLYCERIDE:VL DL CHOLESTEROL RAT IO.THIS FACTOR VARIES B Y MEASURED TRIGLY CERIDE AND NON-HDLCHOL ESTEROL CONCENTRATIONS WITH INCREASED CALCU LATED LDL SEENIN HIGH ER TRIGLYCERIDE OR LOWER NON-HDL SPECIME NS. FOR MOREINFORMATION , SEE CLIENT ANNOUNCE MENT AT [email or web address] LDL/HDL 3.13 RATIO <3.22 UNLESS O THERWISE (test code = 2238) INDICATED , ALL TESTING PERFORMED [facility], [facility]. [address] [place], [place] [address] [place] [address] DIRECTOR: BERTRAND JOEL M.D. CLIA NUMBER [id number] CAP ACCREDITATION N O. [id number] COMPREHENSIVE METABOLIC [id number] 23:34:58 Test Item Value Reference Range Interpretation Comments GLUCOSE (test code = 89 MG/DL 70-99 2216) BUN (test code = 12 MG/DL 6-20 2207) CREATININE (test 0.69 MG/DL 0.60-1.30 code = 2214) eGFR (2020 CKD-EPI) 110 >60 (test code = 43622) ML/MIN/1.73 CALC BUN/CREAT (test 17 RATIO 6-28 code = 2235) SODIUM (test code = 141 MEQ/L 117-575 6588) POTASSIUM (test code 4.2 MEQ/L 3.5-5.4 = 2227) CHLORIDE (test code 101 MEQ/L 95-107 = 2215) CARBON DIOXIDE (test 26 MEQ/L 19-31 code = 2206) CALCIUM (test code = 10.0 MG/DL 8.5-10.5 2208) PROTEIN, TOTAL (test 7.5 G/DL 6.1-8.3 code = 2229) ALBUMIN (test code = 4.5 G/DL 3.5-5.2 2200) CALC GLOBULIN (test 3.0 G/DL 1.9-3.7 code = 2240) CALC A/G RATIO (test 1.5 RATIO 1.0-2.6 code = 2234) BILIRUBIN, TOTAL 0.3 MG/DL See_Comment [Automated message] (test code = 2207) The syste m which generated this result transmit ruba reference range : <=1.2. The refe rence range was not u sed to interpret th is result as normal/abnormal . ALKALINE PHOSPHATASE 83 U/L 40-113 (test code = 2203) AST (test code = 14 U/L -2217) ALT (test code = 19 U/L 2218) COMPREHENSIVE METABOLIC [id number] 05:50:23 Test Item Value Reference Range Interpretation Comments GLUCOSE (test code = 104 MG/DL 70-99 H 2216) BUN (test code = 12 MG/DL 6-20 2207) CREATININE (test 0.67 MG/DL 0.60-1.30 code = 221) eGFR (2020 CKD-EPI) 111 >60 (test code = 84559) ML/MIN/1.73 CALC BUN/CREAT (test 18 RATIO 6-28 code = 223) SODIUM (test code = 142 MEQ/L 498-549 2632) POTASSIUM (test code 4.5 MEQ/L 3.5-5.4 = 2227) CHLORIDE (test code 101 MEQ/L 95-107 = 2214) CARBON DIOXIDE (test 26 MEQ/L 19-31 code = 220) CALCIUM (test code = 10.1 MG/DL 8.5-10.5 2208) PROTEIN, TOTAL (test 8.0 G/DL 6.1-8.3 code = 222) ALBUMIN (test code = 4.8 G/DL 3.5-5.2 2200) CALC GLOBULIN (test 3.2 G/DL 1.9-3.7 code = 2240) CALC A/G RATIO (test 1.5 RATIO 1.0-2.6 code = 2234) BILIRUBIN, TOTAL 0.3 MG/DL See_Comment [Automated message] (test code = 220) The syste m which generated this result transmit ruba reference range : <=1.2. The refe rence range was not u sed to interpret th is result as normal/abnormal . ALKALINE PHOSPHATASE 104 U/L 40-113 (test code = 2203) AST (test code = 16 U/L 2217) ALT (test code = 18 U/L 2218) LIPID [id number] 05:50:23 Test Item Value Reference Range Interpretation Comments CHOLESTEROL (test 205 MG/DL <200 H code = 2210) TRIGLYCERIDES (test 98 MG/DL <150 code = 2232) HDL CHOLESTEROL (test 47 MG/DL >39 code = 2220) CALC LDL CHOL (test 138 MG/DL <100 H NOTE: C ALCULATED LDL code = 2237) IS BASED ON VALERIANO-CORNEJO METHOD WHICHINCLUDES ADJUSTABLE TRIGLYCERIDE:VL DL CHOLESTEROL RAT IO.THIS FACTOR VARIES B Y MEASURED TRIGLY CERIDE AND NON-HDLCHOL ESTEROL CONCENTRATIONS WITH INCREASED CALCU LATED LDL SEENIN HIGH ER TRIGLYCERIDE OR LOWER NON-HDL SPECIME NS. FOR MOREINFORMATION , SEE CLIENT ANNOUNCE MENT AT [email or web address] LDL/HDL 2.94 RATIO <3.22 (test code = 2238) HEMOGLOBIN [id number] 04:43:17 Test Item Value Reference Range Interpretation Comments HEMOGLOBIN A1c (test 6.3 % 4.2-5.6 H UNLESS OTHERWISE code = 12678) INDICATED, ALL [facility]MED [facility]. [address] [place] [id number] [place] [address] DIRECTOR: BERTRAND JOEL M.D. CLIA NUMBER [id number] CAP ACCREDITATION N O. [id number] COMPREHENSIVE METABOLIC [id number] 00:00:00 Test Item Value Reference Range Interpretation Comments GLUCOSE (test code = 2217) 104 MG/DL BUN (test code = 2208) 12 MG/DL CREATININE (test code = 2214) 0.67 MG/DL eGFR (2020 CKD-EPI) (test 111 ML/MIN/1.73 code = 22604) CALC BUN/CREAT (test code = 18 RATIO 2234) SODIUM (test code = 2231) 142 MEQ/L POTASSIUM (test code = 2228) 4.5 MEQ/L CHLORIDE (test code = 2215) 101 MEQ/L CARBON DIOXIDE (test code = 26 MEQ/L 2205) CALCIUM (test code = 2209) 10.1 MG/DL PROTEIN, TOTAL (test code = 8.0 G/DL 2228) ALBUMIN (test code = 220) 4.8 G/DL CALC GLOBULIN (test code = 3.2 G/DL 2239) CALC A/G RATIO (test code = 1.5 RATIO 2233) BILIRUBIN, TOTAL (test code = 0.3 MG/DL 2206) ALKALINE PHOSPHATASE (test 104 U/L code = 2204) AST (test code = 2218) 16 U/L ALT (test code = 2219) 18 U/L COMPREHENSIVE METABOLIC [id number] 00:00:00 Test Item Value Reference Range Interpretation Comments GLUCOSE (test code = 2217) 104 MG/DL BUN (test code = 2208) 12 MG/DL CREATININE (test code = 2214) 0.67 MG/DL eGFR (2020 CKD-EPI) (test 111 ML/MIN/1.73 code = 69510) CALC BUN/CREAT (test code = 18 RATIO 2235) SODIUM (test code = 2231) 142 MEQ/L POTASSIUM (test code = 2228) 4.5 MEQ/L CHLORIDE (test code = 2215) 101 MEQ/L CARBON DIOXIDE (test code = 26 MEQ/L 2205) CALCIUM (test code = 2209) 10.1 MG/DL PROTEIN, TOTAL (test code = 8.0 G/DL 2228) ALBUMIN (test code = 2201) 4.8 G/DL CALC GLOBULIN (test code = 3.2 G/DL 2239) CALC A/G RATIO (test code = 1.5 RATIO 2233) BILIRUBIN, TOTAL (test code = 0.3 MG/DL 2206) ALKALINE PHOSPHATASE (test 104 U/L code = 2204) AST (test code = 2218) 16 U/L ALT (test code = 2219) 18 U/L LIPID [id number] 00:00:00 Test Item Value Reference Range Interpretation Comments CHOLESTEROL (test code = 2210) 205 MG/DL TRIGLYCERIDES (test code = 2232) 98 MG/DL HDL CHOLESTEROL (test code = 2220) 47 MG/DL CALC LDL CHOL (test code = 2237) 138 MG/DL RISK RATIO LDL/HDL (test code = 2.94 RATIO 2238) LIPID [id number] 00:00:00 Test Item Value Reference Range Interpretation Comments CHOLESTEROL (test code = 2210) 205 MG/DL TRIGLYCERIDES (test code = 2232) 98 MG/DL HDL CHOLESTEROL (test code = 2220) 47 MG/DL CALC LDL CHOL (test code = 2237) 138 MG/DL RISK RATIO LDL/HDL (test code = 2.94 RATIO 2238) HEMOGLOBIN [id number] 00:00:00 Test Item Value Reference Range Interpretation Comments HEMOGLOBIN A1c (test code = 98149) 6.3 % HEMOGLOBIN [id number] 00:00:00 Test Item Value Reference Range Interpretation Comments HEMOGLOBIN A1c (test code = 04590) 6.3 % HEMOGLOBIN [id number] 00:00:00 Test Item Value Reference Range Interpretation Comments HEMOGLOBIN A1c (test code = 43446) 6.3 % HEMOGLOBIN [id number] 00:00:00 Test Item Value Reference Range Interpretation Comments HEMOGLOBIN A1c (test code = 40286) 6.4 % HEMOGLOBIN [id number] 00:00:00 Test Item Value Reference Range Interpretation Comments HEMOGLOBIN A1c (test code = 63074) 6.4 % HEMOGLOBIN [id number] 00:00:00 Test Item Value Reference Range Interpretation Comments HEMOGLOBIN A1c (test code = 42284) 6.4 % GC AND CHLAMYDIA, AMPLIFIED, [id number] 00:00:00 Test Item Value Reference Range Interpretation Comments GONORRHEA, NAAT (test code = 54836) NEGATIVE CHLAMYDIA, NAAT (test code = 37919) NEGATIVE GC AND CHLAMYDIA, AMPLIFIED, [id number] 00:00:00 Test Item Value Reference Range Interpretation Comments GONORRHEA, NAAT (test code = 11634) NEGATIVE CHLAMYDIA, NAAT (test code = 26301) NEGATIVE VAGINAL PATHOGENS DNA [id number] 00:00:00 Test Item Value Reference Range Interpretation Comments CAROLINE SPECIES (test code = 54735) NEGATIVE G. VAGINALIS (test code = 04532) POSITIVE T. VAGINALIS (test code = 82754) NEGATIVE VAGINAL PATHOGENS DNA [id number] 00:00:00 Test Item Value Reference Range Interpretation Comments CAROLINE SPECIES (test code = 23374) NEGATIVE G. VAGINALIS (test code = 12137) POSITIVE T. VAGINALIS (test code = 81445) NEGATIVE ACUTE HEPATITIS [id number] 00:00:00 Test Item Value Reference Range Interpretation Comments HEPATITIS A IgM (test code = NON-REACTIVE 15909) HEPATITIS B CORE IgM (test code NON-REACTIVE = 4644) HEPATITIS B SURF AG (test code = NON-REACTIVE 2739) HEPATITIS C ANTIBODY (test code NON-REACTIVE = 4675) INTERPRETATION HEPATITIS A: (NOTE) (test code = 2552) INTERPRETATION HEPATITIS B: (NOTE) (test code = 19317) INTERPRETATION HEPATITIS C: (NOTE) (test code = 54405) ACUTE HEPATITIS [id number] 00:00:00 Test Item Value Reference Range Interpretation Comments HEPATITIS A IgM (test code = NON-REACTIVE 14399) HEPATITIS B CORE IgM (test code NON-REACTIVE = 4644) HEPATITIS B SURF AG (test code = NON-REACTIVE 2739) HEPATITIS C ANTIBODY (test code NON-REACTIVE = 4675) INTERPRETATION HEPATITIS A: (NOTE) (test code = 2552) INTERPRETATION HEPATITIS B: (NOTE) (test code = 16523) INTERPRETATION HEPATITIS C: (NOTE) (test code = 76939) HIV AB/AG COMBO RFLX [id number] 00:00:00 Test Item Value Reference Range Interpretation Comments HIV 1/2 4TH GEN, RFLX CONF (test NON-REACTIVE code = 3514) HIV AB/AG COMBO RFLX [id number] 00:00:00 Test Item Value Reference Range Interpretation Comments HIV 1/2 4TH GEN, RFLX CONF (test NON-REACTIVE code = 3514) RSV BY [id number] 00:00:00 Test Item Value Reference Range Interpretation Comments RSV BY DFA (test code = 03923) Negative SOURCE (test code = 68450) Not Provided RSV BY [id number] 00:00:00 Test Item Value Reference Range Interpretation Comments RSV BY DFA (test code = 46925) Negative SOURCE (test code = 70141) Not Provided SARS-CoV-2 (COVID-19) by RT-PCR (HIGH RISK)2021-06-17 00:00:00 Test Item Value Reference Range Interpretation Comments SARS-CoV-2 INTERPRETATION (test POSITIVE code = 42078) SOURCE (test code = 00079) NOT SPECIFIED SARS-CoV-2 (COVID-19) by RT-PCR (HIGH RISK)2021-06-17 00:00:00 Test Item Value Reference Range Interpretation Comments SARS-CoV-2 INTERPRETATION (test POSITIVE code = 86771) SOURCE (test code = 83292) NOT SPECIFIED HEMOGLOBIN [id number] 00:00:00 Test Item Value Reference Range Interpretation Comments HEMOGLOBIN A1c (test code = 35112) 6.1 % HEMOGLOBIN [id number] 00:00:00 Test Item Value Reference Range Interpretation Comments HEMOGLOBIN A1c (test code = 98185) 6.1 % HEMOGLOBIN [id number] 00:00:00 Test Item Value Reference Range Interpretation Comments HEMOGLOBIN A1c (test code = 53229) 6.1 % LIPID [id number] 00:00:00 Test Item Value Reference Range Interpretation Comments CHOLESTEROL (test code = 2210) 183 MG/DL TRIGLYCERIDES (test code = 2232) 109 MG/DL HDL CHOLESTEROL (test code = 2220) 48 MG/DL CALC LDL CHOL (test code = 2237) 113 MG/DL RISK RATIO LDL/HDL (test code = 2.35 RATIO 2238) LIPID [id number] 00:00:00 Test Item Value Reference Range Interpretation Comments CHOLESTEROL (test code = 2210) 183 MG/DL TRIGLYCERIDES (test code = 2232) 109 MG/DL HDL CHOLESTEROL (test code = 2220) 48 MG/DL CALC LDL CHOL (test code = 2237) 113 MG/DL RISK RATIO LDL/HDL (test code = 2.35 RATIO 2238) COMPREHENSIVE METABOLIC [id number] 00:00:00 Test Item Value Reference Range Interpretation Comments GLUCOSE (test code = 2217) 112 MG/DL BUN (test code = 2208) 12 MG/DL CREATININE (test code = 2214) 0.74 MG/DL eGFR AMER. (test code 116 ML/MIN/1.73 = 42629) eGFR NON- AMER. (test 100 ML/MIN/1.73 code = 63086) CALC BUN/CREAT (test code = 16 RATIO 2235) SODIUM (test code = 2231) 141 MEQ/L POTASSIUM (test code = 2228) 4.5 MEQ/L CHLORIDE (test code = 2215) 101 MEQ/L CARBON DIOXIDE (test code = 27 MEQ/L 2205) CALCIUM (test code = 2209) 9.8 MG/DL PROTEIN, TOTAL (test code = 8.0 G/DL 2228) ALBUMIN (test code = 2201) 4.4 G/DL CALC GLOBULIN (test code = 3.6 G/DL 2240) CALC A/G RATIO (test code = 1.2 RATIO 2234) BILIRUBIN, TOTAL (test code = 0.3 MG/DL 2206) ALKALINE PHOSPHATASE (test 90 U/L code = 2204) AST (test code = 2218) 16 U/L ALT (test code = 2219) 23 U/L COMPREHENSIVE METABOLIC [id number] 00:00:00 Test Item Value Reference Range Interpretation Comments GLUCOSE (test code = 2217) 112 MG/DL BUN (test code = 2208) 12 MG/DL CREATININE (test code = 2214) 0.74 MG/DL eGFR AMER. (test code 116 ML/MIN/1.73 = 28371) eGFR NON- AMER. (test 100 ML/MIN/1.73 code = 50112) CALC BUN/CREAT (test code = 16 RATIO 2235) SODIUM (test code = 2231) 141 MEQ/L POTASSIUM (test code = 2228) 4.5 MEQ/L CHLORIDE (test code = 2215) 101 MEQ/L CARBON DIOXIDE (test code = 27 MEQ/L 2205) CALCIUM (test code = 2209) 9.8 MG/DL PROTEIN, TOTAL (test code = 8.0 G/DL 2228) ALBUMIN (test code = 2201) 4.4 G/DL CALC GLOBULIN (test code = 3.6 G/DL 2239) CALC A/G RATIO (test code = 1.2 RATIO 2233) BILIRUBIN, TOTAL (test code = 0.3 MG/DL 2206) ALKALINE PHOSPHATASE (test 90 U/L code = 2204) AST (test code = 2218) 16 U/L ALT (test code = 2219) 23 U/L HEMOGLOBIN [id number] 00:00:00 Test Item Value Reference Range Interpretation Comments HEMOGLOBIN A1c (test code = 47532) 5.9 % HEMOGLOBIN [id number] 00:00:00 Test Item Value Reference Range Interpretation Comments HEMOGLOBIN A1c (test code = 60582) 5.9 % HEMOGLOBIN [id number] 00:00:00 Test Item Value Reference Range Interpretation Comments HEMOGLOBIN A1c (test code = 87339) 5.9 % LIPID [id number] 00:00:00 Test Item Value Reference Range Interpretation Comments CHOLESTEROL (test code = 2210) 201 MG/DL TRIGLYCERIDES (test code = 2232) 90 MG/DL HDL CHOLESTEROL (test code = 2220) 59 MG/DL CALC LDL CHOL (test code = 2237) 123 MG/DL RISK RATIO LDL/HDL (test code = 2.08 RATIO 2238) LIPID [id number] 00:00:00 Test Item Value Reference Range Interpretation Comments CHOLESTEROL (test code = 2210) 201 MG/DL TRIGLYCERIDES (test code = 2232) 90 MG/DL HDL CHOLESTEROL (test code = 2220) 59 MG/DL CALC LDL CHOL (test code = 2237) 123 MG/DL RISK RATIO LDL/HDL (test code = 2.08 RATIO 2238) SARS-CoV-2 (COVID-19) by RT-PCR (HIGH RISK)2020-05-02 00:00:00 Test Item Value Reference Range Interpretation Comments SARS-CoV-2 INTERPRETATION (test NEGATIVE code = 58249) SOURCE (test code = 12393) NOT SPECIFIED SARS-CoV-2 (COVID-19) by RT-PCR (HIGH RISK)2020-05-02 00:00:00 Test Item Value Reference Range Interpretation Comments SARS-CoV-2 INTERPRETATION (test NEGATIVE code = 47130) SOURCE (test code = 98142) NOT SPECIFIED SARS-CoV-2 (COVID-19) by RT-PCR (HIGH RISK)2020-03-20 00:00:00 Test Item Value Reference Range Interpretation Comments SARS-CoV-2 INTERPRETATION (test NEGATIVE code = 40659) SOURCE (test code = 26485) NOT SPECIFIED SARS-CoV-2 (COVID-19) by RT-PCR (HIGH RISK)2020-03-20 00:00:00 Test Item Value Reference Range Interpretation Comments SARS-CoV-2 INTERPRETATION (test NEGATIVE code = 46027) SOURCE (test code = 71821) NOT SPECIFIED CHLAMYDIA, AMPLIFIED, [id number] 00:00:00 Test Item Value Reference Range Interpretation Comments CHLAMYDIA, TMA (test code = 49592) NEGATIVE CHLAMYDIA, AMPLIFIED, [id number] 00:00:00 Test Item Value Reference Range Interpretation Comments CHLAMYDIA, TMA (test code = 13324) NEGATIVE PAP TEST, THINPREP, [id number] 00:00:00 Test Item Value Reference Range Interpretation Comments SOURCE: (test code = Cervical/Endocervical 8001) SLIDES: (test code = 1 8011) LMP: (test code = 8021) 01/26/2020 SPECIMEN ADEQUACY: (NOTE) (test code = 88892) INTERPRETATION: (test NILM/NO EPITH. code = 31422) ABNORMALITY;SEE [employer] TEAM LEADER: (test Vincent code = 8101) ELEUTERIO Chance(ASCP) LOCATION: (test code = (NOTE) 58813) CPT: (test code = 8140) (NOTE) PAP TEST, THINPREP, [id number] 00:00:00 Test Item Value Reference Range Interpretation Comments SOURCE: (test code = Cervical/Endocervical 8001) SLIDES: (test code = 1 8011) LMP: (test code = 8021) 01/26/2020 SPECIMEN ADEQUACY: (NOTE) (test code = 04524) INTERPRETATION: (test NILM/NO EPITH. 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: (test Vincent code = 8101) ELEUTERIO Chance(ASCP) LOCATION: (test code = (NOTE) 81427) CPT: (test code = 8140) (NOTE) HPV HIGH RISK WITH GENOTYPE, [id number] 00:00:00 Test Item Value Reference Range Interpretation Comments HPV HIGH RISK INTERP (test code = NEGATIVE 13427) HPV 16 (test code = 95903) NEGATIVE HPV 18 (test code = 08739) NEGATIVE HPV, HR, OTHER GENOTYPES (test code NEGATIVE = 36916) HPV HIGH RISK WITH GENOTYPE, [id number] 00:00:00 Test Item Value Reference Range Interpretation Comments HPV HIGH RISK INTERP (test code = NEGATIVE 97517) HPV 16 (test code = 06224) NEGATIVE HPV 18 (test code = 76302) NEGATIVE HPV, HR, OTHER GENOTYPES (test code NEGATIVE = 02180) GC, AMPLIFIED, [id number] 00:00:00 Test Item Value Reference Range Interpretation Comments GONORRHEA, TMA (test code = 63353) NEGATIVE GC, AMPLIFIED, [id number] 00:00:00 Test Item Value Reference Range Interpretation Comments GONORRHEA, TMA (test code = 54968) NEGATIVE COMPREHENSIVE METABOLIC [id number] 00:00:00 Test Item Value Reference Range Interpretation Comments GLUCOSE (test code = 2217) 105 MG/DL BUN (test code = 2208) 16 MG/DL CREATININE (test code = 2214) 0.67 MG/DL eGFR AMER. (test code 127 ML/MIN/1.73 = 42306) eGFR NON- AMER. (test 109 ML/MIN/1.73 code = 51649) CALC BUN/CREAT (test code = 24 RATIO 2235) SODIUM (test code = 2231) 141 MEQ/L POTASSIUM (test code = 2228) 4.3 MEQ/L CHLORIDE (test code = 2215) 103 MEQ/L CARBON DIOXIDE (test code = 24 MEQ/L 220) CALCIUM (test code = 2209) 10.0 MG/DL PROTEIN, TOTAL (test code = 7.7 G/DL 222) ALBUMIN (test code = 2201) 4.4 G/DL CALC GLOBULIN (test code = 3.3 G/DL 2240) CALC A/G RATIO (test code = 1.3 RATIO 2234) BILIRUBIN, TOTAL (test code = 0.3 MG/DL 2206) ALKALINE PHOSPHATASE (test 80 U/L code = 2204) AST (test code = 2218) 13 U/L ALT (test code = 2219) 23 U/L COMPREHENSIVE METABOLIC [id number] 00:00:00 Test Item Value Reference Range Interpretation Comments GLUCOSE (test code = 2217) 105 MG/DL BUN (test code = 2208) 16 MG/DL CREATININE (test code = 2214) 0.67 MG/DL eGFR AMER. (test code 127 ML/MIN/1.73 = 44135) eGFR NON- AMER. (test 109 ML/MIN/1.73 code = 52259) CALC BUN/CREAT (test code = 24 RATIO 2235) SODIUM (test code = 2231) 141 MEQ/L POTASSIUM (test code = 2228) 4.3 MEQ/L CHLORIDE (test code = 2215) 103 MEQ/L CARBON DIOXIDE (test code = 24 MEQ/L 2205) CALCIUM (test code = 2209) 10.0 MG/DL PROTEIN, TOTAL (test code = 7.7 G/DL 2229) ALBUMIN (test code = 2201) 4.4 G/DL CALC GLOBULIN (test code = 3.3 G/DL 2240) CALC A/G RATIO (test code = 1.3 RATIO 2234) BILIRUBIN, TOTAL (test code = 0.3 MG/DL 2207) ALKALINE PHOSPHATASE (test 80 U/L code = 2204) AST (test code = 2218) 13 U/L ALT (test code = 2219) 23 U/L LIPID [id number] 00:00:00 Test Item Value Reference Range Interpretation Comments CHOLESTEROL (test code = 2210) 185 MG/DL TRIGLYCERIDES (test code = 2232) 85 MG/DL HDL CHOLESTEROL (test code = 2220) 56 MG/DL CALC LDL CHOL (test code = 2237) 112 MG/DL RISK RATIO LDL/HDL (test code = 2.00 RATIO 2238) LIPID [id number] 00:00:00 Test Item Value Reference Range Interpretation Comments CHOLESTEROL (test code = 2210) 185 MG/DL TRIGLYCERIDES (test code = 2232) 85 MG/DL HDL CHOLESTEROL (test code = 2220) 56 MG/DL CALC LDL CHOL (test code = 2237) 112 MG/DL RISK RATIO LDL/HDL (test code = 2.00 RATIO 2238) CBC W/AUTO [id number] 00:00:00 Test Item Value Reference Range Interpretation Comments WBC (test code = 1001) 7.3 K/UL RBC (test code = 1002) 4.97 M/UL HEMOGLOBIN (test code = 1003) 13.3 G/DL HEMATOCRIT (test code = 1004) 41.2 % MCV (test code = 1005) 82.9 fL MCH (test code = 1006) 26.8 PG MCHC (test code = 1007) 32.3 G/DL RDW (test code = 1038) 14.6 % NEUTROPHILS (test code = 1008) 50.6 % LYMPHOCYTES (test code = 1010) 35.6 % MONOCYTES (test code = 1011) 9.7 % EOSINOPHILS (test code = 1012) 3.3 % BASOPHILS (test code = 1013) 0.8 % PLATELET COUNT (test code = 1015) 376 K/UL CBC W/AUTO [id number] 00:00:00 Test Item Value Reference Range Interpretation Comments WBC (test code = 1001) 7.3 K/UL RBC (test code = 1002) 4.97 M/UL HEMOGLOBIN (test code = 1003) 13.3 G/DL HEMATOCRIT (test code = 1004) 41.2 % MCV (test code = 1005) 82.9 fL MCH (test code = 1006) 26.8 PG MCHC (test code = 1007) 32.3 G/DL RDW (test code = 1038) 14.6 % NEUTROPHILS (test code = 1008) 50.6 % LYMPHOCYTES (test code = 1010) 35.6 % MONOCYTES (test code = 1011) 9.7 % EOSINOPHILS (test code = 1012) 3.3 % BASOPHILS (test code = 1013) 0.8 % PLATELET COUNT (test code = 1015) 376 K/UL CBC W/AUTO [id number] 00:00:00 Test Item Value Reference Range Interpretation Comments WBC (test code = 1001) 7.3 K/UL RBC (test code = 1002) 4.97 M/UL HEMOGLOBIN (test code = 1003) 13.3 G/DL HEMATOCRIT (test code = 1004) 41.2 % MCV (test code = 1005) 82.9 fL MCH (test code = 1006) 26.8 PG MCHC (test code = 1007) 32.3 G/DL RDW (test code = 1038) 14.6 % NEUTROPHILS (test code = 1008) 50.6 % LYMPHOCYTES (test code = 1010) 35.6 % MONOCYTES (test code = 1011) 9.7 % EOSINOPHILS (test code = 1012) 3.3 % BASOPHILS (test code = 1013) 0.8 % PLATELET COUNT (test code = 1015) 376 K/UL HEMOGLOBIN [id number] 00:00:00 Test Item Value Reference Range Interpretation Comments HEMOGLOBIN A1c (test code = 01119) 6.0 % HEMOGLOBIN [id number] 00:00:00 Test Item Value Reference Range Interpretation Comments HEMOGLOBIN A1c (test code = 79494) 6.0 % HEMOGLOBIN [id number] 00:00:00 Test Item Value Reference Range Interpretation Comments HEMOGLOBIN A1c (test code = 48854) 6.0 % LIPID [id number] 00:00:00 Test Item Value Reference Range Interpretation Comments CHOLESTEROL (test code = 2210) 188 MG/DL TRIGLYCERIDES (test code = 2232) 108 MG/DL HDL CHOLESTEROL (test code = 2220) 63 MG/DL CALC LDL CHOL (test code = 2237) 103 MG/DL RISK RATIO LDL/HDL (test code = 1.64 RATIO 2238) LIPID [id number] 00:00:00 Test Item Value Reference Range Interpretation Comments CHOLESTEROL (test code = 2210) 188 MG/DL TRIGLYCERIDES (test code = 2232) 108 MG/DL HDL CHOLESTEROL (test code = 2220) 63 MG/DL CALC LDL CHOL (test code = 2237) 103 MG/DL RISK RATIO LDL/HDL (test code = 1.64 RATIO 2238) HEMOGLOBIN [id number] 00:00:00 Test Item Value Reference Range Interpretation Comments HEMOGLOBIN A1c (test code = 10636) 5.8 % HEMOGLOBIN [id number] 00:00:00 Test Item Value Reference Range Interpretation Comments HEMOGLOBIN A1c (test code = 02106) 5.8 % HEMOGLOBIN [id number] 00:00:00 Test Item Value Reference Range Interpretation Comments HEMOGLOBIN A1c (test code = 64312) 5.8 % COMPREHENSIVE METABOLIC [id number] 00:00:00 Test Item Value Reference Range Interpretation Comments GLUCOSE (test code = 2217) 103 MG/DL BUN (test code = 2208) 16 MG/DL CREATININE (test code = 2214) 0.61 MG/DL eGFR AMER. (test code 131 ML/MIN/1.73 = 27894) eGFR NON- AMER. (test 113 ML/MIN/1.73 code = 87297) CALC BUN/CREAT (test code = 26 RATIO 2235) SODIUM (test code = 2231) 140 MEQ/L POTASSIUM (test code = 2228) 4.2 MEQ/L CHLORIDE (test code = 2215) 102 MEQ/L CARBON DIOXIDE (test code = 22 MEQ/L 2206) CALCIUM (test code = 2209) 10.0 MG/DL PROTEIN, TOTAL (test code = 8.0 G/DL 2228) ALBUMIN (test code = 2201) 4.6 G/DL CALC GLOBULIN (test code = 3.4 G/DL 2240) CALC A/G RATIO (test code = 1.4 RATIO 2234) BILIRUBIN, TOTAL (test code = <0.2 MG/DL 2206) ALKALINE PHOSPHATASE (test 99 U/L code = 2204) AST (test code = 2218) 20 U/L ALT (test code = 2219) 21 U/L COMPREHENSIVE METABOLIC [id number] 00:00:00 Test Item Value Reference Range Interpretation Comments GLUCOSE (test code = 2217) 103 MG/DL BUN (test code = 2208) 16 MG/DL CREATININE (test code = 2214) 0.61 MG/DL eGFR AMER. (test code 131 ML/MIN/1.73 = 20639) eGFR NON- AMER. (test 113 ML/MIN/1.73 code = 26883) CALC BUN/CREAT (test code = 26 RATIO 2235) SODIUM (test code = 2231) 140 MEQ/L POTASSIUM (test code = 2228) 4.2 MEQ/L CHLORIDE (test code = 2215) 102 MEQ/L CARBON DIOXIDE (test code = 22 MEQ/L 220) CALCIUM (test code = 2209) 10.0 MG/DL PROTEIN, TOTAL (test code = 8.0 G/DL 2228) ALBUMIN (test code = 2201) 4.6 G/DL CALC GLOBULIN (test code = 3.4 G/DL 2240) CALC A/G RATIO (test code = 1.4 RATIO 2234) BILIRUBIN, TOTAL (test code = <0.2 MG/DL 2206) ALKALINE PHOSPHATASE (test 99 U/L code = 220) AST (test code = 2218) 20 U/L ALT (test code = 2219) 21 U/L COMPREHENSIVE METABOLIC [id number] 00:00:00 Test Item Value Reference Range Interpretation Comments GLUCOSE (test code = 2217) 101 MG/DL BUN (test code = 2208) 11 MG/DL CREATININE (test code = 2214) 0.60 MG/DL eGFR AMER. (test code 132 ML/MIN/1.73 = 73560) eGFR NON- AMER. (test 114 ML/MIN/1.73 code = 31815) CALC BUN/CREAT (test code = 18 RATIO 2235) SODIUM (test code = 2231) 142 MEQ/L POTASSIUM (test code = 2228) 4.2 MEQ/L CHLORIDE (test code = 2215) 105 MEQ/L CARBON DIOXIDE (test code = 27 MEQ/L 2205) CALCIUM (test code = 2209) 10.1 MG/DL PROTEIN, TOTAL (test code = 7.7 G/DL 2228) ALBUMIN (test code = 2201) 4.8 G/DL CALC GLOBULIN (test code = 2.9 G/DL 2240) CALC A/G RATIO (test code = 1.7 RATIO 2234) BILIRUBIN, TOTAL (test code = <0.2 MG/DL 2206) ALKALINE PHOSPHATASE (test 85 U/L code = 2204) AST (test code = 2218) 18 U/L ALT (test code = 2219) 20 U/L COMPREHENSIVE METABOLIC [id number] 00:00:00 Test Item Value Reference Range Interpretation Comments GLUCOSE (test code = 2217) 101 MG/DL BUN (test code = 2208) 11 MG/DL CREATININE (test code = 2214) 0.60 MG/DL eGFR AMER. (test code 132 ML/MIN/1.73 = 42290) eGFR NON- AMER. (test 114 ML/MIN/1.73 code = 63659) CALC BUN/CREAT (test code = 18 RATIO 2235) SODIUM (test code = 2231) 142 MEQ/L POTASSIUM (test code = 2228) 4.2 MEQ/L CHLORIDE (test code = 2215) 105 MEQ/L CARBON DIOXIDE (test code = 27 MEQ/L 2205) CALCIUM (test code = 2209) 10.1 MG/DL PROTEIN, TOTAL (test code = 7.7 G/DL 2228) ALBUMIN (test code = 2201) 4.8 G/DL CALC GLOBULIN (test code = 2.9 G/DL 224) CALC A/G RATIO (test code = 1.7 RATIO 2234) BILIRUBIN, TOTAL (test code = <0.2 MG/DL 2206) ALKALINE PHOSPHATASE (test 85 U/L code = 2204) AST (test code = 2218) 18 U/L ALT (test code = 2219) 20 U/L LIPID [id number] 00:00:00 Test Item Value Reference Range Interpretation Comments CHOLESTEROL (test code = 2210) 200 MG/DL TRIGLYCERIDES (test code = 2232) 132 MG/DL HDL CHOLESTEROL (test code = 2220) 61 MG/DL CALC LDL CHOL (test code = 2237) 113 MG/DL RISK RATIO LDL/HDL (test code = 1.85 RATIO 2238) LIPID [id number] 00:00:00 Test Item Value Reference Range Interpretation Comments CHOLESTEROL (test code = 2210) 200 MG/DL TRIGLYCERIDES (test code = 2232) 132 MG/DL HDL CHOLESTEROL (test code = 2220) 61 MG/DL CALC LDL CHOL (test code = 2237) 113 MG/DL RISK RATIO LDL/HDL (test code = 1.85 RATIO 2238) CBC W/AUTO [id number] 00:00:00 Test Item Value Reference Range Interpretation Comments WBC (test code = 1001) 8.5 K/UL RBC (test code = 1002) 4.79 M/UL HEMOGLOBIN (test code = 1003) 11.2 G/DL HEMATOCRIT (test code = 1004) 35.7 % MCV (test code = 1005) 74.5 fL MCH (test code = 1006) 23.4 PG MCHC (test code = 1007) 31.4 G/DL RDW (test code = 1038) 14.9 % NEUTROPHILS (test code = 1008) 52.1 % LYMPHOCYTES (test code = 1010) 35.6 % MONOCYTES (test code = 1011) 9.0 % EOSINOPHILS (test code = 1012) 2.7 % BASOPHILS (test code = 1013) 0.6 % PLATELET COUNT (test code = 1015) 450 K/UL CBC W/AUTO [id number] 00:00:00 Test Item Value Reference Range Interpretation Comments WBC (test code = 1001) 8.5 K/UL RBC (test code = 1002) 4.79 M/UL HEMOGLOBIN (test code = 1003) 11.2 G/DL HEMATOCRIT (test code = 1004) 35.7 % MCV (test code = 1005) 74.5 fL MCH (test code = 1006) 23.4 PG MCHC (test code = 1007) 31.4 G/DL RDW (test code = 1038) 14.9 % NEUTROPHILS (test code = 1008) 52.1 % LYMPHOCYTES (test code = 1010) 35.6 % MONOCYTES (test code = 1011) 9.0 % EOSINOPHILS (test code = 1012) 2.7 % BASOPHILS (test code = 1013) 0.6 % PLATELET COUNT (test code = 1015) 450 K/UL CBC W/AUTO [id number] 00:00:00 Test Item Value Reference Range Interpretation Comments WBC (test code = 1001) 8.5 K/UL RBC (test code = 1002) 4.79 M/UL HEMOGLOBIN (test code = 1003) 11.2 G/DL HEMATOCRIT (test code = 1004) 35.7 % MCV (test code = 1005) 74.5 fL MCH (test code = 1006) 23.4 PG MCHC (test code = 1007) 31.4 G/DL RDW (test code = 1038) 14.9 % NEUTROPHILS (test code = 1008) 52.1 % LYMPHOCYTES (test code = 1010) 35.6 % MONOCYTES (test code = 1011) 9.0 % EOSINOPHILS (test code = 1012) 2.7 % BASOPHILS (test code = 1013) 0.6 % PLATELET COUNT (test code = 1015) 450 K/UL
--- NOTE | 2023-07-26 07:26 | ER ---
Nurse's Notes [facility] Name: Vickey Salamanca Age: 43 yrs Sex: Female : 1980 Arrival Date: 07/26/2023 Time: 06:29 Bed 14 Private MD: Diagnosis: Dermatitis, unspecified;Allergic contact dermatitis due to other agents Presentation: 07/26 06:42 Chief complaint: Patient states: "I think I am having a allergic reaction to a new hair as6 product. My scalp has been really itchy for several days". Coronavirus screen: At this time, the client does not indicate any symptoms associated with coronavirus-19. Ebola Screen: No symptoms or risks identified at this time. Initial Sepsis Screen: Does the patient meet any 2 criteria? No. Patient's initial sepsis screen is negative. Does the patient have a suspected source of infection? No. Patient's initial sepsis screen is negative. Risk Assessment: Do you want to hurt yourself or someone else? Patient reports no desire to harm self or others. Onset of symptoms was July 24, 2023. 06:42 Acuity: KESHA 4 as6 06:42 Method Of Arrival: Ambulatory as6 Historical: - Allergies: 06:42 No Known Allergies; as6 - PMHx: 06:42 blood clot arm; Hypertension; as6 - PSHx: 06:42 Ligation of fallopian tube; as6 - Immunization history:: Adult Immunizations up to date. - Social history:: Smoking status: Patient denies any tobacco usage or history of. Screenin:46 [facility] ED Fall Risk Assessment (Adult) History of falling in the last 3 months, pf1 including since admission No falls in past 3 months (0 pts) Confusion or Disorientation No (0 pts) Intoxicated or Sedated No (0 pts) Impaired Gait No (0 pts) Mobility Assist Device Used No (0 pt) Altered Elimination No (0 pt) Score/Fall Risk Level 0 - 2 = Low Risk Oriented to surroundings, Maintained a safe environment, Educated pt \\T\\ family on fall prevention, incl call for assistance when getting out of bed, Assessed \\T\\ reinforced patient's understanding of fall precautions, Provided non-skid footwear, Hourly rounding (assess needs \\T\\ fall precautionary measures) done, Used ambulatory aids as needed (educated on \\T\\ assisted with), Used gait belt as appropriate. Abuse screen: Denies threats or abuse. Nutritional screening: No deficits noted. Tuberculosis screening: No symptoms or risk factors identified. Assessment: 06:43 General: Appears in no apparent distress. comfortable, well groomed, well developed, pf1 Behavior is calm, cooperative, appropriate for age, quiet. Pain: Denies pain. Neuro: No deficits noted. Level of Consciousness is awake, alert, obeys commands, Oriented to person, place, time, situation. Cardiovascular: No deficits noted. Capillary refill < 3 seconds Patient's skin is warm and dry. Respiratory: No deficits noted. Airway is patent Respiratory effort is even, unlabored, Respiratory pattern is regular, symmetrical, Breath sounds are clear bilaterally. GI: No deficits noted. No signs and/or symptoms were reported involving the gastrointestinal system. : No deficits noted. No signs and/or symptoms were reported regarding the genitourinary system. EENT: No deficits noted. No signs and/or symptoms were reported regarding the EENT system. Derm: Patient C/O swelling to around eyes and bilateral outer facial scalp region,onset this AM. Parent/caregiver reports the patient having itching, to scalp after using a new hair product,onset 4 days ago. 07:15 Reassessment: Dr. Dee at bedside. . aa5 07:28 Reassessment: Pt given crackers before medication administration. . aa5 07:35 Neuro: Level of Consciousness is awake, alert, obeys commands, Oriented to person, aa5 place, time, situation. Respiratory: Airway is patent Respiratory effort is even, unlabored, Respiratory pattern is regular, symmetrical. Derm: Skin is dry, Skin is normal, Skin temperature is warm. Vital Signs: 06:41 BP 164 / 113; Pulse 81; Resp 16 S; Temp 98(O); Pulse Ox 97% on R/A; Weight 87.09 kg as6 (R); Height 5 ft. 7 in. (R); Pain 0/10; 07:15 BP 155 / 111; Pulse 69; Resp 19 S; Pulse Ox 97% on R/A; aa5 06:41 Body Mass Index 30.07 (87.09 kg, 170.18 cm) as6 06:41 Pain Scale: Adult as6 07:15 Pt states she took antihypertension medication right before coming into ER. aa5 ED Course: 06:34 Patient arrived in ED. mr 06:41 Arm band placed on. as6 06:45 Triage completed. as6 06:46 Patient has correct armband on for positive identification. Bed in low position. Call pf1 light in reach. 06:46 No provider procedures requiring assistance completed. pf1 07:06 Royce Dee MD is Attending Physician. stu 07:10 Yady Cintron, RN is Primary Nurse. aa5 07:36 Patient did not have IV access during this emergency room visit. aa5 Administered Medications: 07:27 Drug: predniSONE PO 60 mg PO once Route: PO; aa5 07:36 Follow up: Response: No adverse reaction aa5 07:27 Drug: Famotidine PO 40 mg PO once Route: PO; aa5 07:36 Follow up: Response: No adverse reaction aa5 07:28 Drug: diphenhydrAMINE PO 50 mg PO once Route: PO; aa5 07:36 Follow up: Response: No adverse reaction aa5 Medication: 07:36 VIS not applicable for this client. aa5 Outcome: 07:26 Discharge ordered by . [facility] 07:36 Discharged to home ambulatory, aa5 07:36 Condition: stable 07:36 Discharge instructions given to patient, Instructed on discharge instructions, follow up and referral plans. medication usage, Demonstrated understanding of instructions, follow-up care, medications, Prescriptions given X 3, 07:36 Patient left the ED. aa5 Signatures: Royce Dee MD MD cha Rivera, Sonya, Reg Reg mr Yady Cintron, RN RN aa5 Fabrizio Mayberry, DEEPA ARENAS as6 Francheska Barroso RN RN pf1 Corrections: (The following items were deleted from the chart) 07:36 07:15 BP 155 / 111; Pulse 69bpm; Resp 19bpm; Spontaneous; Pulse Ox 97% RA; aa5 aa5
--- NOTE | 2023-07-26 07:26 | EDPHYS ---
Physician Documentation [facility] Name: Vickey Salamanca Age: 43 yrs Sex: Female : 1980 Arrival Date: 07/26/2023 Time: 06:29 Bed 14 Private MD: ODILON Physician Royce Dee HPI: 07/26 07:21 This 43 yrs old Black Female presents to ER via Ambulatory with complaints of Allergic stu Reaction. 07:21 The patient presents with itching, rash, redness of skin. Onset: The symptoms/episode stu began/occurred 2 day(s) ago. Associated signs and symptoms: The patient has no apparent associated signs or symptoms. Possible causes: hair products. At home the patient or guardian has treated the symptoms with Benadryl, steroids. Severity of symptoms: At their worst the symptoms were mild moderate in the emergency department the symptoms are unchanged. The patient has not experienced similar symptoms in the past. Historical: - Allergies: 06:42 No Known Allergies; as6 - PMHx: 06:42 blood clot arm; Hypertension; as6 - PSHx: 06:42 Ligation of fallopian tube; as6 - Immunization history:: Adult Immunizations up to date. - Social history:: Smoking status: Patient denies any tobacco usage or history of. ROS: 07:23 Constitutional: Negative for fever, chills, and weight loss, Eyes: Negative for injury, stu pain, redness, and discharge, ENT: Negative for injury, pain, and discharge, Neck: Negative for injury, pain, and swelling, Cardiovascular: Negative for chest pain, palpitations, and edema, Respiratory: Negative for shortness of breath, cough, wheezing, and pleuritic chest pain, Abdomen/GI: Negative for abdominal pain, nausea, vomiting, diarrhea, and constipation, Back: Negative for injury and pain, : Negative for injury, bleeding, discharge, and swelling, MS/Extremity: Negative for injury and deformity, Neuro: Negative for headache, weakness, numbness, tingling, and seizure, Psych: Negative for depression, anxiety, suicide ideation, homicidal ideation, and hallucinations, Allergy/Immunology: Negative for hives, rash, and allergies, Endocrine: Negative for neck swelling, polydipsia, polyuria, polyphagia, and marked weight changes, Hematologic/Lymphatic: Negative for swollen nodes, abnormal bleeding, and unusual bruising, 07:23 Skin: Positive for rash, of the face, Exam: 07:23 Constitutional: This is a well developed, well nourished patient who is awake, alert, stu and in no acute distress. Eyes: Pupils equal round and reactive to light, extra-ocular motions intact. Lids and lashes normal. Conjunctiva and sclera are non-icteric and not injected. Cornea within normal limits. Periorbital areas with no swelling, redness, or edema. ENT: Nares patent. No nasal discharge, no septal abnormalities noted. Tympanic membranes are normal and external auditory canals are clear. Oropharynx with no redness, swelling, or masses, exudates, or evidence of obstruction, uvula midline. Mucous membranes moist. Neck: Trachea midline, no thyromegaly or masses palpated, and no cervical lymphadenopathy. Supple, full range of motion without nuchal rigidity, or vertebral point tenderness. No Meningismus. Chest/axilla: Normal chest wall appearance and motion. Nontender with no deformity. No lesions are appreciated. Cardiovascular: Regular rate and rhythm with a normal S1 and S2. No gallops, murmurs, or rubs. Normal PMI, no JVD. No pulse deficits. Respiratory: Lungs have equal breath sounds bilaterally, clear to auscultation and percussion. No rales, rhonchi or wheezes noted. No increased work of breathing, no retractions or nasal flaring. Abdomen/GI: Soft, non-tender, with normal bowel sounds. No distension or tympany. No guarding or rebound. No evidence of tenderness throughout. Back: No spinal tenderness. No costovertebral tenderness. Full range of motion. MS/ Extremity: Pulses equal, no cyanosis. Neurovascular intact. Full, normal range of motion. Neuro: Awake and alert, GCS 15, oriented to person, place, time, and situation. Cranial nerves II-XII grossly intact. Motor strength 5/5 in all extremities. Sensory grossly intact. Cerebellar exam normal. Normal gait. Psych: Awake, alert, with orientation to person, place and time. Behavior, mood, and affect are within normal limits. 07:23 Skin: cellulitis, is not appreciated, injury, contact dermatitis, Turgor: is excellent, Vital Signs: 06:41 BP 164 / 113; Pulse 81; Resp 16 S; Temp 98(O); Pulse Ox 97% on R/A; Weight 87.09 kg as6 (R); Height 5 ft. 7 in. (R); Pain 0/10; 07:15 BP 155 / 111; Pulse 69; Resp 19 S; Pulse Ox 97% on R/A; aa5 06:41 Body Mass Index 30.07 (87.09 kg, 170.18 cm) as6 06:41 Pain Scale: Adult as6 07:15 Pt states she took antihypertension medication right before coming into ER. aa5 MDM: 07:[address] [facility] 07:23 Differential diagnosis: anaphylaxis, angioedema, urticaria. Data reviewed: vital signs, [facility] nurses notes. Consideration of Admission/Observation Escalation of care including admission/observation considered. I considered the following discharge prescriptions or medication management in the emergency department Medications were administered in the Emergency Department. See MAR. Care significantly affected by the following chronic conditions: Hypertension, Obesity, dvt. 07/26 07:21 Order name: Ice pack; Complete Time: 07:27 stu Administered Medications: 07:27 Drug: predniSONE PO 60 mg PO once Route: PO; aa5 07:36 Follow up: Response: No adverse reaction aa5 07:27 Drug: Famotidine PO 40 mg PO once Route: PO; aa5 07:36 Follow up: Response: No adverse reaction aa5 07:28 Drug: diphenhydrAMINE PO 50 mg PO once Route: PO; aa5 07:36 Follow up: Response: No adverse reaction aa5 Disposition Summary: 07/26/23 07:26 Discharge Ordered Notes: Location: Home [facility] Problem: [facility] Symptoms: have improved stu Condition: Stable [facility] Diagnosis - Dermatitis, unspecified [facility] - Allergic contact dermatitis due to other agents stu Followup: stu - With: Private Physician - When: 2 - 3 days - Reason: Recheck today's complaints, Continuance of care, Re-evaluation by your physician Discharge Instructions: - Discharge Summary Sheet [facility] - Contact Dermatitis [facility] - Rash, Adult [facility] Forms: - Medication Reconciliation Form [facility] - Thank You Letter [facility] - Antibiotic Education [facility] - Prescription Opioid Use [facility] - Patient Portal Instructions [facility] - Leadership Thank You Letter [facility] Prescriptions: - Benadryl 25 mg Oral capsule - take 2 capsule ORAL route every 6 hours As needed; 45 tablet; Refills: 0, [facility] Product Selection Permitted - Pepcid 20 mg Oral tablet - take 1 tablet ORAL route every 12 hours for 21 days; 42 tablet; Refills: 0, [facility] Product Selection Permitted - Prednisone 20 mg Oral Tablet - take 2 tablets ORAL route once daily for 5 days; 10 tablet; Refills: 0, Product [facility] Selection Permitted Signatures: Royce Dee, Yady Ballesteros MD, cha RN RN aa5 Fabrizio Mayberry RN RN as6
[2023-07-26] MEDS ORDERED: DIPHENHYDRAMINE 25 MG TAB/CAP ONE (07:36)
[2023-07-26] MEDS ORDERED: predniSONE 20 MG TAB ONE (07:37)
[2023-07-26] MEDS ORDERED: FAMOTIDINE 20 MG TAB ONE (07:37)
[2023-07-26 07:41] VITALS: TEMP 98; O2SAT 97
[2023-07-26 07:43] VITALS: BP 155/111
== END 2023-07-26 07:36 | disposition home or self-care (01) ==
LOC: ER 06:29
DX: L23.89 Allergic contact dermatitis due to other agents (principal); I10 Essential (primary) hypertension
CPT/HCPCS: 99283; J7512